=== PATIENT | male | born 1975 | race Two or more races ===

== ENCOUNTER 2024-09-29 09:32 | Emergency (ER) | payer MEDICAID, SELFPAY ==
[2024-09-29 09:37] VITALS: BP 146/89; PULSE 54; RESP 20; TEMP 36.6; O2SAT 98; BMI 29.2
--- NOTE | 2024-09-29 09:46 | EKG_ITS ---
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
--- NOTE | 2024-09-29 09:46 | XR_ITS ---
Examination: CT brain head without contrast. 2-D sagittal coronal reconstructions Date and time of exam:September 29, 2024 1027 hours INDICATIONS: Onset left-sided headaches one week, dizziness CTDI: vol (mGy):53.2 DLP: (mGycm):1076 Technique: Multiple CT axial sections of the brain have been obtained, 5 mm slice thickness. Contrast has not been administered. 2-D sagittal, coronal reconstructions have been obtained Low dose protocols were performed. One or more of the following dose reduction techniques were used; automated exposure control, adjustment of the mA and/or KV according to patient size, use of iterative reconstruction technique. Findings: Abnormal study, extensive low-density in the right temporal lobe right parietal lobe with severe mass effect, shift of the frontal horns to the left at least 10 mm Subtle hyperdensity in the horizontal right sylvian fissure and interhemispheric anterior fissure consistent with subarachnoid hemorrhage Fourth ventricle is midline The ventricles are not enlarged Cranial vault is intact IMPRESSION: Large masslike area with edema in the right temporal right parietal lobe with severe mass effect, shift of frontal horns to the left at least 10 mm Suspicious for subarachnoid hemorrhage in the right basal cisterns and anterior interhemispheric fissure Differential would include brain tumor as well as a large acute infarct Recommend brain MRI MRA follow-up pre and postcontrast
--- NOTE | 2024-09-29 09:46 | XR_ITS ---
Examination: PA lateral chest 2 views TECHNIQUE: Upright PA lateral chest 2 views Exam date and time: September 29, 2024 1012 hours Comparison August 16, 2023 INDICATIONS: Chest pain today. FINDINGS: Normal heart size Lungs are clear. The osseous structures are intact IMPRESSION: No active disease
--- NOTE | 2024-09-29 09:47 | PD.EDRME ---
Rapid Medical Screening Exam RME Arrival date/time: 09/29/24 09:32 49-year-old male presents emerged department complains of headache and chest pain today Chief Complaint: Headache Time Seen by Provider: 09/29/24 09:34 Vital signs: Vital Signs Temperature 97.9 F 09/29/24 09:37 Pulse Rate 54 L 09/29/24 09:37 Respiratory Rate 20 09/29/24 09:37 Blood Pressure 146/89 H 09/29/24 09:37 Pulse Oximetry (%) 98 09/29/24 09:37 Oxygen Delivery Method Room Air 09/29/24 09:37
[2024-09-29 10:13] LABS: Basophils % (Auto) 1 % (0-2.5); Eosinophils # (Auto) 0.1 Thou/mm3 (0.0-0.5); Eosinophils % (Auto) 1 % (0-10); Hematocrit 49.7 % (41.0-53.0); Hemoglobin 16.5 g/dL (13.5-16.0); Immature Granulocytes % (Auto) 1 % (0-0); Immature Granulocytes Auto 0.04 Thou/mm3 (0.00-0.00); Lymphocytes # (Auto) 2.1 Thou/mm3 (1.0-4.8); Lymphocytes % (Auto) 28 % (10-50); Mean Corpuscular HGB Conc 33.2 g/dl (31.0-37.0); Mean Corpuscular Hemoglobin 28.4 pg (25.0-35.0); Mean Corpuscular Volume 86 fL (80-100); Monocytes # (Auto) 0.4 Thou/mm3 (0.0-0.8); Monocytes % (Auto) 5 % (0-12); Neutrophils # (Auto) 4.9 Thou/mm3 (1.8-7.7); Neutrophils % (Auto) 65 % (37-80); Nucleated Red Blood Cell % 0 /100 WBC (0); Platelet Count 314 Thou/mm3 (140-440); RDW Standard Deviation 38.5 fL (35.1-43.9); White Blood Count 7.6 Thou/mm3 (3.8-10.6)
[2024-09-29 10:27] LABS: Partial Thromboplastin Time 23.1 Seconds (22.0-36.0); Prothrombin Time 11.3 Seconds (9.0-12.2)
[2024-09-29 10:30] LABS: B-Type Natriuretic Peptide 41 pg/mL (0-100)
[2024-09-29 10:31] LABS: Alanine Aminotransferase 66 U/L (10-49); Albumin, Serum 4.9 gm/dL (3.5-5.0); Albumin/Globulin Ratio 1.7 (1.2-2.2); Alkaline Phosphatase 111 U/L (46-116); Anion Gap 6 (7-16); Aspartate Amino Transferase 31 U/L (0-34); BUN/Creatinine Ratio 12 Ratio (12-20); Bilirubin,Total 0.7 mg/dL (0.3-1.2); Blood Urea Nitrogen 12 mg/dL (9-23); Calcium 9.4 mg/dL (8.3-10.6); Calcium (Corrected) 9.4 mg/dL (8.5-10.1); Carbon Dioxide 27.8 mMol/L (20.0-31.0); Chloride 106 mMol/L (98-107); Estimated Creatinine Clearance 104.4 mL/min (>60); Globulin 2.9 gm/dL (2.3-3.5); Glucose 110 mg/dL (74-106); Magnesium 2.7 mg/dL (1.6-2.6); Osmolality,Calculated 280 (275-295); Potassium 4.1 mMol/L (3.4-5.1); Sodium 140 mMol/L (136-145); Total Protein 7.8 gm/dL (5.7-8.2); Troponin I < 0.002 ng/mL (0.0-0.045); eGFR > 60 See Note
[2024-09-29 10:39] LABS: Collection Type, Urine Clean Catch
[2024-09-29 10:49] LABS: Bacteria,Urine Rare; Bilirubin,Urine Negative (Negative); Blood,Urine Negative (Negative); Clarity,Urine Clear (Clear/Hazy); Color,Urine Yellow (Lt Yel-Yel); Glucose, Urine Negative (Negative); Hyaline Casts,Urine < 1 /hpf (0-1); Ketones,Urine Negative (Negative); Leukocyte Esterase,Urine Negative (Negative); Nitrite,Urine Negative (Negative); Protein,Urine Trace (Neg - Trace); RBC,Urine 3 /hpf (0-3); Specific Gravity,Urine 1.025 (1.001-1.035); Squamous Epithelial Cell,Urine 2 /hpf (0-5); Urobilinogen,Urine Negative mg/dL (0.0-1.0); WBC,Urine 1 /hpf (0-5)
[2024-09-29 10:52] LABS: Amphetamine/Methamp Scrn,U Negative (Negative); Barbiturate Screen,Urine Negative (Negative); Benzodiazepines Screen,Urine Negative (Negative); Benzoylecgonine Screen, Ur Negative (Negative); Fentanyl Screen,Urine Negative (Negative); Opiate Screen,Urine Negative (Negative); THC Screen,Urine Negative (Negative)
[2024-09-29 11:04] VITALS: BP 147/77; PULSE 61; RESP 18; TEMP 36.7; O2SAT 97
--- NOTE | 2024-09-29 11:23 | EDNOTE_ITS ---
ED Headache RME/HPI General Chief Complaint: Headache Stated Complaint: headache /dizzy/ thinks he has bells palsy Time Seen by Provider: 09/29/24 09:34 Arrival date/time: 09/29/24 09:32 RME / HPI RME / HPI Narrative: 49-year-old male patient with no significant past medical history, been having worsening headache for the last 2 weeks. Patient told me that from time to time he is getting headache for 1 to 2 years, seen by PCP and was given medication with no relief. Patient was also seen here last year CT scan of the head was done and it was negative. 2 weeks ago patient developed sudden onset of worsening headache, severity moderate. Also complained of worsening dizziness. Yesterday patient told me that he developed numbness and right facial paralysis, that lasted for 5 minutes. On my initial evaluation, patient only complaints is headache described as dull ache, severity 9 out of 10 and dizziness. Denies any nausea or vomiting denies any blurry vision denies any slurring speech denies any upper or lower extremity weakness. Patient is ambulatory. Related Data Allergies Allergy/AdvReac Type Severity Reaction Status Date / Time No Known Allergies Allergy Verified 09/29/24 09:33 Review of Systems Review of Systems Narrative Review of Systems: Review of system reviewed and within normal limits except mentioned in HPI ED Exam Narrative Physical exam: VITAL SIGNS: Reviewed. GENERAL APPEARANCE: Alert and interactive, follows commands, no acute distress, HEAD AND FACE: Non-traumatic. ENT: PERRL, pink conjunctivitis, eyelid no trauma, Mucous membrane moist. NECK: Supple, nontender, no nuchal rigidity. CHEST: No tenderness, no crepitus, no paradoxical movement, no retractions. LUNGS: Clear, well ventilated, symmetric, no rales, no wheezing, no ronchi, no stridor, good breath sounds bilaterally. HEART: Regular rate, regular rhythm, no murmur, no gallops. ABDOMEN: Soft, positive bowel sounds, nondistended, no guarding, nontender, no rebound, no masses, RECTAL: Deferred. GENITAL: Deferred. NEUROLOGICAL: Gross motor function intact sensory function intact, Appropriate for age. MUSCULOSKELETAL: low back nontender, full range of motion. EXTREMITIES: Nontender, full range of motion. SKIN: Color pink, dry, no rash, no lacerations, no abrasions, no contusions. LYMPHATICS: Deferred. Course Quality Measures none Orders Category Date Time Status EKG (ED ONLY) *Do not use* NOW Care 09/29/24 09:46 Completed Referral - [place] Roofer Helper Stat Cons 09/29/24 11:[address] head/brain wo con Stat Exams 09/29/24 09:46 Completed EKG (ED Only) Stat Exams 09/29/24 09:46 Draft XR chest 2V Stat Exams 09/29/24 09:46 Completed B-Type Natriuretic Peptide Stat Lab 09/29/24 10:00 Completed CBC Stat Lab 09/29/24 10:00 Completed Comprehensive Metabolic Panel Stat Lab 09/29/24 10:00 Completed Drug Screen,Urine Stat Lab 09/29/24 10:12 Completed Magnesium Stat Lab 09/29/24 10:00 Completed Partial Thromboplastin Time Stat Lab 09/29/24 10:00 Completed Prothrombin Time with INR Stat Lab 09/29/24 10:00 Completed Troponin I Stat Lab 09/29/24 10:00 Completed Urinalysis Stat Lab 09/29/24 10:12 Completed Acetaminophen Tab [Tylenol ES Tab] Med 09/29/24 11:33 Discontinued 1,000 mg PO X1 ONE levETIRAcetam INJ [Keppra Inj] Med 09/29/24 11:33 Discontinued 1,000 mg IVP X1 ONE Vital Signs Vital signs: Vital Signs Temperature 97.9 F 09/29/24 09:37 Pulse Rate 54 L 09/29/24 09:37 Respiratory Rate 20 09/29/24 09:37 Blood Pressure 146/89 H 09/29/24 09:37 Pulse Oximetry (%) 98 09/29/24 09:37 Oxygen Delivery Method Room Air 09/29/24 09:37 Headache MDM Narrative MDM Narrative:: 49-year-old male patient with no significant past medical history, been having worsening headache for the last 2 weeks. Patient told me that from time to time he is getting headache for 1 to 2 years, seen by PCP and was given medication with no relief. Patient was also seen here last year CT scan of the head was done and it was negative. 2 weeks ago patient developed sudden onset of worsening headache, severity moderate. Also complained of worsening dizziness. Yesterday patient told me that he developed numbness and right facial paralysis, that lasted for 5 minutes. On my initial evaluation, patient only complaints is headache described as dull ache, severity 9 out of 10 and dizziness. Denies any nausea or vomiting denies any blurry vision denies any slurring speech denies any upper or lower extremity weakness. Patient is ambulatory. Laboratory workup all came back unremarkable. CT scan of the head showed Large masslike area with edema in the right temporal right parietal lobe with severe mass effect, shift of frontal horns to the left at least 10 mm Suspicious for subarachnoid hemorrhage in the right basal cisterns and anterior interhemispheric fissure Differential would include brain tumor as well as a large acute infarct Recommend brain MRI MRA follow-up pre and postcontrast Patient was given Keppra IV. And Tylenol I spoke with neurosurgeon from [facility], Dr. Allen, told me that patient needs to be transferred to higher level care 1310 I spoke with transfer center from [facility], and told me that she will run the case with the neurosurgeon Patient was accepted at [facility], accepting neurosurgeon Dr. Story Patient data External records reviewed:: None Clinical information provided by:: family Social determinants that could affect healthcare access:: none Patient has the following chronic illnesses:: None How is presenting disease/condition affected by chronic disease/condition?: no chronic disease Evaluation data The following diagnostics were reviewed and interpreted by me:: lab results, radiology exam(s) and EKG tracing(s) Lab and/or radiology exams considered but not ordered:: None Interpretation Summary: EKG shows sinus rhythm, ventricular rate 61 bpm, no ST segment elevation depression noted. Laboratory workup all came back unremarkable. CT scan of the head showed Large masslike area with edema in the right temporal right parietal lobe with severe mass effect, shift of frontal horns to the left at least 10 mm Suspicious for subarachnoid hemorrhage in the right basal cisterns and anterior interhemispheric fissure Differential would include brain tumor as well as a large acute infarct Recommend brain MRI MRA follow-up pre and postcontrast Medications / Prescriptions Medications or Prescriptions considered but not ordered:: None Medication administrations:: Medication Administration History Discontinued Medications Acetaminophen (Acetaminophen 500 Mg Tablet) 1,000 mg PO X1 ONE Stop: 09/29/24 11:34 Last Admin: 09/29/24 11:56 Dose: 1,000 mg Documented By: LORENZO Levetiracetam (Levetiracetam Inj 100 Mg/Ml Vial 5ml) 1,000 mg IVP X1 ONE Stop: 09/29/24 11:34 Last Admin: 09/29/24 11:57 Dose: 1,000 mg Documented By: LORENZO [place] and Tylenol Consultations Consultation(s) initiated? (list below): No Diagnosis Differential diagnosis headache: migraine, tension headache and other (Brain mass) Most likely diagnosis given after review of the tests above:: Brain mass Admission Indicated Admission indicated?: indicated Explain why admission is indicated or not indicated:: Transferred to [facility] Admission Request Was there a request for admission?: No Disposition Plan Disposition Plan: Transfer Discharge Plan Plan Patient Disposition: Xf Acute Care [facility] Pt Being Transferred to: [facility] Prescriptions/Referrals Referrals: Remedios Mckenna FNP-C [Primary Care Provider] - In 1 week Problem List Clinical Impression: Brain mass Patient/Caregiver Discharge Instructions Print Language: Irish Stand Alone Forms: Mikala Award Info., Patient Portal Info Letter
[2024-09-29] MEDS: ACETAMINOPHEN 500 MG TABLET 1000 MG PO (11:56)
--- NOTE | 2024-09-29 11:56 | PC.CM ---
Addendum entered by Sharon Castro RN 09/29/24 15:08: [place] called and slate picker time set for 1540. Packet at ED nurses station and I gave update to [place] Charge nurse. CD in packet and it is ready for transfer. Addendum entered by Sharon Castro RN 09/29/24 13:39: Patient accepted by [facility]. I spoke to Sara transfer nurse and she states patient will go ED to ED. Dr. Story has accepted. Number to call and give report is [phone]. I will complete paperwork and set up transportation. Addendum entered by Sharon Castro RN 09/29/24 13:00: I received a call from Sara at [facility]. She states she did not received the images I pushed over. I pushed over the images again. [facility] called the ED and stated they are not able to accept patient stating patient needs a higher level of care than they can offer. Patient declined for transfer. Addendum entered by Sharon Castro RN 09/29/24 12:23: 1205 I initiated a transfer with [facility]. I spoke to Celina and I let her know we are looking for neurology. i faxed over paperwork. I started packet and made a CD for transfer. Original Note: 1145 I faxed over information to [facility] and I pushed over images. 1134 I received a referral to transfer patient for neurology for intracranial tumor with midline shift and edema.
[2024-09-29] MEDS: levETIRAcetam INJ 100 MG/ML VIAL 5ML 1000 MG IVP (11:57)
[2024-09-29 13:56] VITALS: BP 158/94; PULSE 51; RESP 20; TEMP 37; O2SAT 99
--- NOTE | 2024-09-29 14:31 | PC.CC ---
ASWMary Kate was consulted to provide patient's with [facility] information to where the patient is being transferred to. ASW met with patient and his Yelena who was at bedside. ASW introduced self, role, and reason for visit and provided patient and his information to [facility] where he is being transferred to.
--- NOTE | 2024-09-29 15:44 | PC.NURSE ---
report given to Wil in red zone at [facility] red zone all questions answers
== END 2024-09-29 15:15 | disposition short-term general hospital (02) ==
PROVIDERS: Nurse Practitioner Primary Care; Emergency Provider Emergency Medicine; PCP Nurse Practitioner Family
DX: G93.89 Other specified disorders of brain (principal); R07.9 Chest pain, unspecified; R94.31 Abnormal electrocardiogram [ECG] [EKG]
CPT/HCPCS: 36415; 70450; 71046; 80053; 80307; 81001; 83735; 83880; 84484; 85025; 85610; 85730; 93005; 96374; 99285; J1953; A9270

== ENCOUNTER 2024-10-16 07:24 | Emergency (ER) | payer MEDICAID, SELFPAY ==
[2024-10-16 07:44] VITALS: BP 126/84; PULSE 75; RESP 18; TEMP 36.6; O2SAT 98; BMI 28.3
--- NOTE | 2024-10-16 07:44 | XR_ITS ---
Examination: Abdomen sonogram, Limited Date and time of exam: October 16, 2024 0816 hours INDICATIONS: Right upper abdominal pain radiating to the back beginning 5 days ago Technique: Real-time pizano scale transabdominal sonographic images of the upper abdomen obtained. Findings: Negative for gallstones Common bile duct 0.3 cm Pancreatic head 2.8 cm Liver 14.1 cm fatty infiltration Normal hepatopedal portal venous flow Patent IVC IMPRESSION: Normal gallbladder Fatty liver
--- NOTE | 2024-10-16 07:45 | PD.EDRME ---
Rapid Medical Screening Exam RME Arrival date/time: 10/16/24 07:24 49-year-old male presents the emergency department complaints of right upper quadrant abdominal pain patient recently had brain surgery with tumor removal patient is awaiting pathology. Patient reports that when he was in [facility] he had an MRI of his abdomen which he reports was abnormal patient reports that he is scheduled to have repeat MRI in [place] in October Chief Complaint: Abdominal Pain Time Seen by Provider: 10/16/24 07:26
[2024-10-16 08:04] LABS: Collection Type, Urine Clean Catch
[2024-10-16 08:28] LABS: Alanine Aminotransferase 48 U/L (10-49); Albumin, Serum 5.1 gm/dL (3.5-5.0); Albumin/Globulin Ratio 1.9 (1.2-2.2); Alkaline Phosphatase 112 U/L (46-116); Anion Gap 7 (7-16); Aspartate Amino Transferase 19 U/L (0-34); BUN/Creatinine Ratio 13 Ratio (12-20); Bilirubin,Total 0.5 mg/dL (0.3-1.2); Blood Urea Nitrogen 13 mg/dL (9-23); Carbon Dioxide 27.3 mMol/L (20.0-31.0); Chloride 104 mMol/L (98-107); Estimated Creatinine Clearance 99.8 mL/min (>60); Globulin 2.7 gm/dL (2.3-3.5); Glucose 112 mg/dL (74-106); Lipase 56 U/L (12-53); Osmolality,Calculated 276 (275-295); Sodium 138 mMol/L (136-145); Total Protein 7.8 gm/dL (5.7-8.2); eGFR > 60 See Note
--- NOTE | 2024-10-16 08:30 | PC.NURSE ---
speech therapist technician at bedside, obtaining abd ultrasound.
[2024-10-16 08:50] LABS: Basophils # (Auto) 0.1 Thou/mm3 (0.0-0.2); Basophils % (Auto) 1 % (0-2.5); Eosinophils # (Auto) 0.1 Thou/mm3 (0.0-0.5); Eosinophils % (Auto) 2 % (0-10); Hematocrit 47.4 % (41.0-53.0); Hemoglobin 15.6 g/dL (13.5-16.0); Immature Granulocytes % (Auto) 1 % (0-0); Immature Granulocytes Auto 0.04 Thou/mm3 (0.00-0.00); Lymphocytes # (Auto) 2.5 Thou/mm3 (1.0-4.8); Lymphocytes % (Auto) 31 % (10-50); Mean Corpuscular HGB Conc 32.9 g/dl (31.0-37.0); Mean Corpuscular Hemoglobin 28.6 pg (25.0-35.0); Mean Corpuscular Volume 87 fL (80-100); Monocytes # (Auto) 0.4 Thou/mm3 (0.0-0.8); Monocytes % (Auto) 5 % (0-12); Neutrophils # (Auto) 5.1 Thou/mm3 (1.8-7.7); Neutrophils % (Auto) 61 % (37-80); Nucleated Red Blood Cell % 0 /100 WBC (0); Platelet Count 381 Thou/mm3 (140-440); RDW Standard Deviation 40.2 fL (35.1-43.9); Red Blood Count 5.46 Miln/mm3 (4.50-5.90); White Blood Count 8.2 Thou/mm3 (3.8-10.6)
--- NOTE | 2024-10-16 08:51 | EDNOTE_ITS ---
ED Abdominal Pain RME/HPI General Chief Complaint: Abdominal Pain Stated complaint: RIGHT ABD PAIN FOR 4 MONTHS, JUST AT [facility] [place] Time seen by provider: 10/16/24 07:26 Arrival date/time: 10/16/24 07:24 RME / HPI RME / HPI narrative: 10/16/24 07:24 49-year-old male presents the emergency department complaints of right upper quadrant abdominal pain patient recently had brain surgery with tumor removal patient is awaiting pathology. Patient reports that when he was in [facility] he had an MRI of his abdomen which he reports was abnormal patient reports that he is scheduled to have repeat MRI in [place] in October DR. NIX MAIN ED EVALUATION 49 year old male presents to the ED for evaluation of abdominal pain beginning 4 days ago. Described as aching in sensation that is located most to the right upper quadrant area, without radiation, rating 7/10. Patient reports he had experienced similar pain 4 months ago and during that time lasted 2 days. States he did not seek medical attention and the pain resolved on its own. Denies fevers, chills, chest pain, cough, shortness of breath, nausea, vomiting, diarrhea, constipation, or urinary symptoms. 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 Story. Mentioned that during the admission patient had a MRI performed which showed a spot on the liver and is scheduled to have a follow up MRI 11/20/2023 at [facility]. Related Data Allergies Allergy/AdvReac Type Severity Reaction Status Date / Time No Known Allergies Allergy Verified 10/16/24 07:28 Review of Systems Review of Systems Narrative Review of Systems: GEN: No fever, no chills, no weight loss EYES: No discharge, no visual changes, no pain HEENT: No ear pain, no congestion, no sore throat PULM: No shortness of breath, no cough, no congestion CV: No chest pain, no dyspnea on exertion, no palpitations GI: No nausea, no vomiting, no diarrhea, +pain, no constipation : No frequency, no urgency and no dysuria MUSC/SKEL No joint pain, no back pain SKIN: No rash NEURO: No weakness, no headache Past Medical History Past Medical History CARDIAC: Positive Hypertension; Negative Cardiac Disorders or Congestive Heart Failure RESPIRATORY: Negative Chronic Obstructive Pulmonary Disease (COPD) GENITOURINARY: Negative Genitourinary Disorders or Renal Disease ENDOCRINE: Negative Diabetes Mellitus Type 1 or Diabetes Mellitus Type 2 Social History SMOKING STATUS: Never smoker ED Exam Narrative Physical exam: GENERAL APPEARANCE: Well hydrated, well nourished, in no acute distress. VITALS: All vitals were reviewed and the pulse ox is 98% on room air which is normal according to my interpretation. HEENT: Normocephalic, atramatic, EOMI, EACs are patent. There is no bulge or retraction. Throat without erythema or exudate. Moist oromucosa. No jaundice NECK: Supple, no JVD or bruits. CARDIOVASCULAR: Heart regular without S3-S4 or murmur. No rubs or gallops. LUNGS/CHEST: Clear to auscultation bilaterally. No rales, rhonchi, or wheezing. Normal inspection. ABDOMEN: Soft, nontender, with normal bowel sounds. No pulsatile masses. No rebound, rigidity, or guarding. No incarcerated hernia. Normal inspection and palpation. EXTREMITIES: Normal inspection and palpation. No edema, clubbing, or cyanosis. Intact CSM SKIN: Warm and dry without rashes. Normal inspection. MUSCULOSKELETAL: Normal inspection. No gross deformity, full ROM all extremities NEURO: Alert and oriented x3. Cranial nerves II through XII grossly intact. There are no other motor or sensory deficits noted. PSYCHIATRIC: Normal mood and affect. No psychosis Course Quality Measures none Orders Category Date Time Status Miscellaneous Nursing Order NOW Care 10/16/24 08:18 Active US gall bladder Stat Exams 10/16/24 07:44 Completed CBC Stat Lab 10/16/24 07:52 Completed Comprehensive Metabolic Panel Stat Lab 10/16/24 07:52 Completed Lipase Stat Lab 10/16/24 07:52 Completed UA, C/S IF [Urinalysis, C/S if Indicated] Stat Lab 10/16/24 07:55 Completed Vital Signs Vital signs: Vital Signs Temperature 97.9 F 10/16/24 07:44 Pulse Rate 75 10/16/24 07:44 Respiratory Rate 18 10/16/24 07:44 Blood Pressure 126/84 10/16/24 07:44 Pulse Oximetry (%) 98 10/16/24 07:44 Oxygen Delivery Method Room Air 10/16/24 07:44 Abdominal Pain MDM MDM Narrative MDM Narrative:: I, Ann Christin, am scribing for and in the presence of Dr. Nix. Patient said that he has been having this pain for months ago also. He was recently DC from [facility] after the brain tumor surgery. That was done on 10/01/2024. And he has follow-up with [facility]. CBC is negative. CMP negative. Lipase is 56. Ultrasound of the right upper quadrant was done. Result from the radiologist is negative. See below. UA is negative. Ultrasound of the right upper quadrant reviewed by and interpreted by me as follow: Gallbladder is intact however elongated, no gallstone. No common bile duct dilatation. No gallbladder wall thickening. Hepatal renal aspect is intact and normal. Patient data External records reviewed:: [facility] previous records (I reviewed ED visit on 09/29/2024 where patient was transferred to [facility] ) Clinical information provided by:: patient Social determinants that could affect healthcare access:: none Patient has the following chronic illnesses:: Hypertension, s/p brain tumor resection 4by Dr. Story at [facility] How is presenting disease/condition affected by chronic disease/condition?: uneffected by Evaluation data The following diagnostics were reviewed and interpreted by me:: lab results and radiology exam(s) Lab and/or radiology exams considered but not ordered:: None Interpretation Summary: Ordering Physician: Bob GROSSMAN)Alistair NP Date of Service: 10/16/24 Procedure(s): US gall bladder Accession Number(s): [id number] cc: Bob GROSSMAN)Alistair NP; ARBEN MEYER PA-C; Silvestre Angulo MD~ Examination: Abdomen sonogram, Limited Date and time of exam: October 16, 2024 0816 hours INDICATIONS: Right upper abdominal pain radiating to the back beginning 5 days ago Technique: Real-time pizano scale transabdominal sonographic images of the upper abdomen obtained. Findings: Negative for gallstones Common bile duct 0.3 cm Pancreatic head 2.8 cm Liver 14.1 cm fatty infiltration Normal hepatopedal portal venous flow Patent IVC IMPRESSION: Normal gallbladder Fatty liver Dictated By: Silvestre Angulo MD Signed By: <Electronically signed by Silvestre Angulo MD in OV> 10/16/24 0946 Medications / Prescriptions Medications or Prescriptions considered but not ordered:: None Medication administrations:: None Consultations Consultation(s) initiated? (list below): No Diagnosis Differential diagnosis abdominal pain: abdominal pain, calculus of kidney and other (Cholelithiasis) Most likely diagnosis given after review of the tests above:: Abdominal pain Admission Indicated Admission indicated?: not indicated Admission Request Was there a request for admission?: No Disposition Plan Disposition Plan: Discharge Discharge Attestation Discharge Attestation: The patient and all family members were given an opportunity to ask questions and understood the discharge instructions. Discharge instructions specifically effects, indications for sooner follow up or return to the emergency department, and the expected course of current diagnosis. Patient condition: Stable Discharge Plan Plan Patient Disposition: HOME (Self Care) Disposition Comment: Stable for DC Prescriptions/Referrals Referrals: Arben Meyer PA-C [Primary Care Provider] - In 1 week Problem List Clinical Impression: Abdominal pain Patient/Caregiver Discharge Instructions Education Materials: Abdominal Pain Additional Instructions: Follow-up with your medical doctor for recheck and further care in 3 days. Return to the ER if condition worsens or if new symptoms develop. Especially fever. You should follow-up closely with your doctor at [facility] Print Language: Kazakh Stand Alone Forms: Mikala Award Info., Patient Portal Info Letter
[2024-10-16 09:00] LABS: Bilirubin,Urine Negative (Negative); Blood,Urine Negative (Negative); Clarity,Urine Clear (Clear/Hazy); Color,Urine Lt-Yellow (Lt Yel-Yel); Culture Indicated,Urine Not Indicated; Glucose, Urine Negative (Negative); Ketones,Urine Negative (Negative); Leukocyte Esterase,Urine Negative (Negative); Nitrite,Urine Negative (Negative); Protein,Urine Negative (Neg - Trace); RBC,Urine 2 /hpf (0-3); Squamous Epithelial Cell,Urine < 1 /hpf (0-5); Urobilinogen,Urine Negative mg/dL (0.0-1.0); WBC,Urine < 1 /hpf (0-5)
[2024-10-16 10:17] VITALS: BP 119/70; PULSE 66; RESP 19; TEMP 36.7; O2SAT 96
== END 2024-10-16 10:28 | disposition home or self-care (01) ==
PROVIDERS: Nurse Practitioner Primary Care; Emergency Provider Emergency Medicine; PCP Physician Assistant Medical
DX: R10.11 Right upper quadrant pain (principal)
CPT/HCPCS: 36415; 76705; 80053; 81001; 83690; 85025; 99284

== ENCOUNTER 2024-11-23 09:24 | Outpatient (RCR) | payer MEDICAID, SELFPAY | END 2024-11-24 23:59 | disposition home or self-care (01) | LOC: SCTC 09:24 | PROVIDERS: PCP Radiology Radiation Oncology; Referring Provider Radiology Radiation Oncology; Visit Provider Radiology Therapeutic Radiology | DX: C71.1 Malignant neoplasm of frontal lobe (principal) | CPT/HCPCS: 77014; 77290; 77334; 77470; 99213; 99424; 99425; G0463 ==

== ENCOUNTER 2024-11-23 10:40 | Emergency (ER) | payer MEDICAID, SELFPAY ==
[2024-11-23 11:09] VITALS: BP 144/86; PULSE 83; RESP 18; TEMP 37.2; O2SAT 97; BMI 32.4
--- NOTE | 2024-11-23 11:14 | EDNOTE_ITS ---
ED Male Genitalurinary RME/HPI General Chief complaint: Urogenital-Male Stated complaint: SPICY PAIN IN PRIVATE AREA AND RIGHT BUTT X 5D Time Seen by Provider: 11/23/24 11:07 Source: patient Arrival date/time: 11/23/24 10:40 49-year-old male with no known medical history presents to the emergency room with a chief complaint of a burning sensation in his right buttocks and near his anus Mode of arrival: ambulatory Limitations: no limitations Related Data Allergies Allergy/AdvReac Type Severity Reaction Status Date / Time No Known Allergies Allergy Verified 11/23/24 10:42 Review of Systems Review of Systems Systems Reviewed: All systems reviewed, normal except as documented Constitutional Constitutional: Reports system reviewed and no additional complaints, except as documented, Denies fatigue, Denies fever(s), Denies headache(s) and Denies weakness Eyes Eyes: Reports system reviewed and no additional complaints, except as documented, Denies blurry vision and Denies change in vision ENT Ears, Nose, Mouth, and Throat: Reports system reviewed and no additional complaints, except as documented, Denies otalgia, Denies headache(s), Denies nasal congestion, Denies throat swelling and Denies vertigo Cardiovascular Cardiovascular: Reports system reviewed and no additional complaints, except as documented, Denies chest pain, Denies dyspnea and Denies dyspnea on exertion Respiratory Respiratory: Reports system reviewed and no additional complaints, except as documented, Denies chest congestion, Denies cough, Denies dyspnea, Denies dyspnea on exertion and Denies wheezing Gastrointestinal Gastrointestinal: Reports system reviewed and no additional complaints, except as documented, Denies abdominal pain, Denies cramping, Denies nausea and Denies vomiting Genitourinary Genitourinary: Reports system reviewed and no additional complaints, except as documented, Denies dysuria and Denies hematuria Musculoskeletal Musculoskeletal: Reports system reviewed and no additional complaints, except as documented and Denies back pain Integumentary/Breasts Skin/Breast: Reports system reviewed and no additional complaints, except as documented, Denies erythema, Denies furuncle, Denies pruritus, Denies skin pain, Denies sores and Denies wounds Neurologic Neurologic: Reports system reviewed and no additional complaints, except as documented, Denies confusion, Denies headache(s), Denies lack of coordination, Denies vertigo and Denies weakness Psychiatric Psychiatric: Reports system reviewed and no additional complaints, except as documented, Denies anxiety, Denies confusion, Denies depression, Denies paranoia, Denies suicidal ideation and Denies tactile hallucinations Endocrine Endocrine: Reports system reviewed and no additional complaints, except as documented and Denies fatigue Hematologic/Lymphatic Hematologic/Lymphatic: Reports system reviewed and no additional complaints, except as documented and Denies lymphadenopathy Allergic/Immunologic Allergic/Immunologic: Reports system reviewed and no additional complaints, except as documented, Denies throat swelling, Denies urticaria and Denies wheezing Past Medical History Past Medical History CARDIAC: Positive Hypertension; Negative Cardiac Disorders or Congestive Heart Failure RESPIRATORY: Negative Chronic Obstructive Pulmonary Disease (COPD) GENITOURINARY: Negative Genitourinary Disorders or Renal Disease ENDOCRINE: Negative Diabetes Mellitus Type 1 or Diabetes Mellitus Type 2 Social History SMOKING STATUS: Never smoker ED Exam General Limitations: Present no limitations General appearance: Present alert and in no apparent distress Head Head exam: Present atraumatic Eye Eye exam: Present normal appearance, PERRL and EOMI ENT ENT exam: Present normal exam, normal oropharynx and mucous membranes moist Neck Neck exam: Present normal inspection, full ROM and trachea midline Chest Chest inspection: Present normal inspection and symmetric chest wall rise Respiratory Respiratory exam: Present normal lung sounds bilaterally Cardiovascular Cardiovascular exam: Present regular rate, normal rhythm and normal heart sounds Abdominal Exam Abdominal exam: Present soft and normal bowel sounds exam: Present normal testicular lie; Absent testicular tenderness, urethral discharge, scrotal swelling or circumcised Expanded Exam exam: Absent penile swelling or balanitis Extremities Exam Extremities exam: Present normal inspection and full ROM Back Exam Back exam: Present normal inspection and full ROM Neurological Exam Neurological exam: Present alert, oriented X3 and CN II-XII intact Psychiatric Psychiatric exam: Present normal affect and normal mood Skin Skin exam: Present warm, dry, intact and normal color Course Quality Measures none Vital Signs Vital signs: Vital Signs Temperature 98.9 F 11/23/24 11:09 Pulse Rate 83 11/23/24 11:09 Respiratory Rate 18 11/23/24 11:09 Blood Pressure 144/86 H 11/23/24 11:09 Pulse Oximetry (%) 97 11/23/24 11:09 Oxygen Delivery Method Room Air 11/23/24 11:09 O2 saturation 97% within normal limits Urogenital - Male MDM Narrative MDM Narrative:: 49-year-old male with no known medical history presents to the emergency room with a chief complaint of a burning sensation in his right buttocks and near his anus. The patient is hemodynamically stable and nontoxic-appearing There is no erythema, wound, edema, or any signs of infection to the area. The patient is afebrile. The patient does not complain of pain and tenderness to the area and states there is a burning sensation that has been intermittently bothering him for the last 5 days. I palpated and there is no fluid buildup or pus. Patient denies any dysuria hematuria. There is no blood in the stool or any discharge. There is no folliculitis, ingrown hair. Patient was discharged and educated to follow-up with primary care provider and return to the emergency room for any evidence of worsening signs or symptoms Patient data External records reviewed:: [facility] previous records Clinical information provided by:: patient Social determinants that could affect healthcare access:: none Patient has the following chronic illnesses:: No chronic illness How is presenting disease/condition affected by chronic disease/condition?: no chronic disease Evaluation data The following diagnostics were reviewed and interpreted by me:: lab results and radiology exam(s) Lab and/or radiology exams considered but not ordered:: Labs and radiology exams considered and ordered Interpretation Summary: N/A Medications / Prescriptions Medications or Prescriptions considered but not ordered:: No medication given Medication administrations:: No medication given Consultations Consultation(s) initiated? (list below): No Diagnosis Urogenital Male Differential Diagnosis: urinary tract infection, urethritis, epididymitis and other (Urogenital complaint) Most likely diagnosis given after review of the tests above:: Urogenital complaint Admission Indicated Admission indicated?: not indicated Admission Request Was there a request for admission?: No Disposition Plan Disposition Plan: Discharge Discharge Attestation Discharge Attestation: The patient and all family members were given an opportunity to ask questions and understood the discharge instructions. Discharge instructions specifically effects, indications for sooner follow up or return to the emergency department, and the expected course of current diagnosis. Patient condition: Stable Discharge Plan Plan Patient Disposition: HOME (Self Care) Disposition Comment: Stable Problem List Clinical Impression: Genitourinary complaints Patient/Caregiver Discharge Instructions Education Materials: ED Symptoms With Uncertain Cause Additional Instructions: Dm un seguimiento con tejada proveedor de atenci?n primaria en las pr?ximas 24 a 40 horas. Si hay evidencia de signos o s?ntomas que empeoran, regrese a la prema de emergencias de inmediato. Print Language: Malay Stand Alone Forms: Mikala Award Info., Patient Portal Info Letter PA/ESTIMATOR PAP[employer]ARD BOXES Supervising Physician PA/ESTIMATOR P[employer]ARD [employer]OXES Supervising Physician: Dr. Flores
== END 2024-11-23 11:44 | disposition home or self-care (01) ==
LOC: SERX 11:52
PROVIDERS: Emergency Provider Emergency Medicine; PCP Family Medicine
DX: R20.8 Other disturbances of skin sensation (principal)
CPT/HCPCS: 99281

== ENCOUNTER → 2024-12-04 | Outpatient (CLI) | payer MEDICAID, SELFPAY ==
[2024-12-04 09:32] LABS: Basophils # (Auto) 0.1 Thou/mm3 (0.0-0.2); Basophils % (Auto) 1 % (0-2.5); Eosinophils # (Auto) 0.1 Thou/mm3 (0.0-0.5); Eosinophils % (Auto) 1 % (0-10); Hematocrit 48.6 % (41.0-53.0); Hemoglobin 16.1 g/dL (13.5-16.0); Immature Granulocytes % (Auto) 0 % (0-0); Immature Granulocytes Auto 0.03 Thou/mm3 (0.00-0.00); Lymphocytes # (Auto) 1.5 Thou/mm3 (1.0-4.8); Lymphocytes % (Auto) 21 % (10-50); Mean Corpuscular HGB Conc 33.1 g/dl (31.0-37.0); Mean Corpuscular Hemoglobin 28.6 pg (25.0-35.0); Mean Corpuscular Volume 87 fL (80-100); Monocytes # (Auto) 0.3 Thou/mm3 (0.0-0.8); Monocytes % (Auto) 4 % (0-12); Neutrophils # (Auto) 5.5 Thou/mm3 (1.8-7.7); Neutrophils % (Auto) 74 % (37-80); Nucleated Red Blood Cell % 0 /100 WBC (0); Platelet Count 321 Thou/mm3 (140-440); RDW Standard Deviation 43.1 fL (35.1-43.9); Red Blood Count 5.62 Miln/mm3 (4.50-5.90); White Blood Count 7.4 Thou/mm3 (3.8-10.6)
[2024-12-04 09:50] LABS: Alanine Aminotransferase 15 U/L (10-49); Albumin, Serum 4.8 gm/dL (3.5-5.0); Albumin/Globulin Ratio 1.7 (1.2-2.2); Alkaline Phosphatase 75 U/L (46-116); Anion Gap 6 (7-16); Aspartate Amino Transferase 14 U/L (0-34); BUN/Creatinine Ratio 11 Ratio (12-20); Bilirubin,Total 0.6 mg/dL (0.3-1.2); Blood Urea Nitrogen 11 mg/dL (9-23); Calcium 10.3 mg/dL (8.3-10.6); Calcium (Corrected) 10.3 mg/dL (8.5-10.1); Chloride 108 mMol/L (98-107); Globulin 2.8 gm/dL (2.3-3.5); Glucose 109 mg/dL (74-106); Osmolality,Calculated 283 (275-295); Potassium 4.3 mMol/L (3.4-5.1); Sodium 142 mMol/L (136-145); Total Protein 7.6 gm/dL (5.7-8.2); eGFR > 60 See Note
== END | disposition home or self-care (01) ==
PROVIDERS: PCP Family Medicine; Referring Provider Internal Medicine Hematology & Oncology; Visit Provider Internal Medicine Hematology & Oncology
DX: C71.1 Malignant neoplasm of frontal lobe (principal)
CPT/HCPCS: 36415; 80053; 85025

== ENCOUNTER → 2024-12-13 | Outpatient (CLI) | payer MEDICAID, SELFPAY ==
[2024-12-13 13:55] LABS: Basophils # (Auto) 0.1 Thou/mm3 (0.0-0.2); Basophils % (Auto) 1 % (0-2.5); Eosinophils # (Auto) 0.1 Thou/mm3 (0.0-0.5); Eosinophils % (Auto) 2 % (0-10); Hematocrit 48.2 % (41.0-53.0); Hemoglobin 16.2 g/dL (13.5-16.0); Immature Granulocytes % (Auto) 0 % (0-0); Immature Granulocytes Auto 0.03 Thou/mm3 (0.00-0.00); Lymphocytes # (Auto) 2.2 Thou/mm3 (1.0-4.8); Lymphocytes % (Auto) 27 % (10-50); Mean Corpuscular HGB Conc 33.6 g/dl (31.0-37.0); Mean Corpuscular Volume 86 fL (80-100); Monocytes # (Auto) 0.7 Thou/mm3 (0.0-0.8); Monocytes % (Auto) 8 % (0-12); Neutrophils # (Auto) 4.9 Thou/mm3 (1.8-7.7); Neutrophils % (Auto) 62 % (37-80); Nucleated Red Blood Cell % 0 /100 WBC (0); Platelet Count 308 Thou/mm3 (140-440); Red Blood Count 5.58 Miln/mm3 (4.50-5.90)
[2024-12-13 14:39] LABS: Alanine Aminotransferase 30 U/L (10-49); Albumin, Serum 4.6 gm/dL (3.5-5.0); Albumin/Globulin Ratio 1.7 (1.2-2.2); Alkaline Phosphatase 81 U/L (46-116); Anion Gap 9 (7-16); Aspartate Amino Transferase 19 U/L (0-34); BUN/Creatinine Ratio 14 Ratio (12-20); Bilirubin,Total 0.4 mg/dL (0.3-1.2); Blood Urea Nitrogen 13 mg/dL (9-23); Calcium 10.1 mg/dL (8.3-10.6); Calcium (Corrected) 10.1 mg/dL (8.5-10.1); Carbon Dioxide 27.6 mMol/L (20.0-31.0); Chloride 102 mMol/L (98-107); Creatinine (Component) 0.9 mg/dL (0.6-1.3); Globulin 2.7 gm/dL (2.3-3.5); Glucose 80 mg/dL (74-106); Osmolality,Calculated 276 (275-295); Potassium 4.4 mMol/L (3.4-5.1); Sodium 139 mMol/L (136-145); Total Protein 7.3 gm/dL (5.7-8.2); eGFR > 60 See Note
== END | disposition home or self-care (01) ==
LOC: COPL 12:24 → SCTO 12:25
PROVIDERS: Referring Provider Internal Medicine Hematology & Oncology; Visit Provider Internal Medicine Hematology & Oncology
DX: C71.1 Malignant neoplasm of frontal lobe (principal)
CPT/HCPCS: 36415; 80053; 85025

== ENCOUNTER 2024-12-22 09:49 | Outpatient (RCR) | payer MEDICAID, SELFPAY ==
--- NOTE | 2024-12-03 21:53 | CTCCONSULT_ITS ---
Patient: ELLIOTT CARSON : 1975 MR#: [id number] Page 3 of 4 CONSULTATION NOTE DATE OF CONSULTATION: 11/30/2024 NAME: ELLIOTT CARSON ACCOUNT: [id number] : 1975 AGE: 49 REFERRING PHYSICIAN: Moise Boudreaux MD PRIMARY PHYSICIAN: Moise Boudreaux MD REASON FOR VISIT: Glioma blastoma multiform ONCOLOGY HISTORY: DIAGNOSIS: Malignant neoplasm of frontal lobe (brain) [ICD10] C71.1 DATE OF DIAGNOSIS: 11/22/2024 STAGE/TNM: 1975 Study of the molecular features that [facility] indicates that this is most consistent with glioblastoma IDH wild-type WHO grade 4. Please see [facility] interpretation section of page 2 of pathology dated 10/01/2024 which is the second document in the mosaic for patient. 11/22/2024 There are postsurgical changes in the right middle cranial fossa from temporal craniotomy. Adjacent to the surgical cavity and more medial, there is fullness of the sulci with high TZ-FLAIR signal and subtle restricted diffusion involving the insular region, medial temporal lobe, and posteroinferior frontal lobe which is unchanged in appearance. In addition, there is subtle signal change involving the right periatrial white matter and hippocampal gyrus with probable extension into the right splenium of the corpus callosum which is also unchanged; however, slightly more conspicuous to the previous examination. There is no associated enhancement. Findings are likely related to non enhancing tumor. 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 Tobacco?Pack?per?Day:?0 Tobacco?Use:?DENIES ETOH?Use:?DENIES Drug?Note:?DENIES Social History Note:?LIVES WITH , 2 CHILDREN AGES 24 AND 13 MEDICATIONS: 1. gabapentin - 100 mg Three times a day 2. gabapentin - 100 mg 1 Capsule three times a day 3. hydrocodone-acetaminophen - 5-325 mg 1 tab three times a day 4. temozolomide - 140 mg 1 Capsule Daily 5. temozolomide - 5 mg 2 Capsule Daily Medications Last Reconciled by Dana Juan LVN on 11/01/2024 ALLERGIES: No Known Allergies REVIEW OF SYSTEMS: A complete 14-point review of systems was performed and is negative except as noted in interval history. PHYSICAL EXAMINATION: VITAL SIGNS: Temperature?99, B/P?153/95, Height?65?inches, Oxygen?Saturation?97% Weight?200?lbs (Change?since?11/15/24:?1?lbs) PAIN: 0 - No pain ECOG Performance Status: 2 - Symptomatic; ambulatory; capable of self-care; >50% of waking hrs. not in bed GENERAL APPEARANCE: Appears well, in no apparent distress, appropriately interactive. HEENT: Normocephalic, no temporal wasting, normal conjunctiva, no scleral icterus, normal hearing, lips without lesions, neck normal range of motion. CARDIOVASCULAR: Not assessed. PULMONARY: Normal respiratory effort, no respiratory distress or use of accessory muscles, speaking in full sentences, no tachypnea. EXTREMITIES: No pedal edema or cyanosis. SKIN: Normal skin appearance. NEUROLOGIC: Alert and oriented x4. PSHYCHIATRIC: Appropriate affect, mood normal, behavior normal, intact thought and speech. LABORATORY DATA: I have personally reviewed and interpreted each of Mr. Carson?s relevant lab tests, abnormal findings are below: Date ASSESSMENT/PLAN: GBM WHO grade 4 S/p resection Will start on concurrent chemoradiation with Temodar followed by maintenance Temodar Chemotherapy orders placed Discussed with Dr. Flores that he can start radiation while waiting for approval of Temodar Patient is high risk and has been already delayed Okay to proceed with radiation and added Temodar weekly once drug is available CBC CMP [facility] MRI brain after the treatment is complete RETURN TO CLINIC: 3 to 4 weeks BILLING AND COMPLIANCE: I reviewed external records from providers outside my specialty as summarized above. I spent a total of 50 minutes on this patient?s care on the day of their visit excluding time spent related to any billed procedures. This time includes time spent with the patient as well as time spent documenting in the medical record, reviewing patients records and tests, obtaining history, placing orders, communicating with other healthcare professionals, counseling the patient, family or caregiver, and/or care coordination for the diagnoses above. Electronically Signed by: Cal Patel MD T: 9:50 PM CC: PCP: Moise Boudreaux Referring: Moise Boudreaux This document was completed utilizing speech recognition software. Grammatical errors, random word insertions, pronoun errors, and incomplete sentences are an occasional consequence of this system due to software limitations, ambient noise, and hardware issues. Any formal questions or concerns about the content, text or information contained within the body of this dictation should be directly addressed to the provider for clarification.
--- NOTE | 2024-12-14 08:09 | CTCFLWUP_ITS ---
Patient: ELLIOTT CORBIN : 1975 Page 3 of 4 FOLLOW UP NOTE DATE OF SERVICE: 12/13/2024 NAME: ELLIOTT CORBIN ACCOUNT: [id number] : 1975 AGE: 49 INTERVAL HISTORY: Patient is received Temodar. He has been getting radiation Patient so far tolerating radiation well. ONCOLOGY HISTORY: DIAGNOSIS: Malignant neoplasm of frontal lobe (brain) [ICD10] C71.1 DATE OF DIAGNOSIS: 11/22/2024 STAGE/TNM: 1975 Study of the molecular features that [facility] indicates that this is most consistent with glioblastoma IDH wild-type WHO grade 4. Please see [facility] interpretation section of page 2 of pathology dated 10/01/2024 which is the second document in the mosaic for patient. 11/22/2024 There are postsurgical changes in the right middle cranial fossa from temporal craniotomy. Adjacent to the surgical cavity and more medial, there is fullness of the sulci with high TZ-FLAIR signal and subtle restricted diffusion involving the insular region, medial temporal lobe, and posteroinferior frontal lobe which is unchanged in appearance. In addition, there is subtle signal change involving the right periatrial white matter and hippocampal gyrus with probable extension into the right splenium of the corpus callosum which is also unchanged; however, slightly more conspicuous to the previous examination. There is no associated enhancement. Findings are likely related to non enhancing tumor. 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 Tobacco?Pack?per?Day:?0 Tobacco?Use:?DENIES ETOH?Use:?DENIES Drug?Note:?DENIES Social History Note:?LIVES WITH , 2 CHILDREN AGES 22 AND 13 MEDICATIONS: 1. hydrocodone-acetaminophen - 5-325 mg 1 tab three times a day 2. memantine - 5 mg 1 tab once daily increasing to twice a day second week. 3. temozolomide - 100 mg 3 Capsule Daily 4. temozolomide - 140 mg 1 Capsule Daily 5. temozolomide - 5 mg 2 Capsule Daily Medications Last Reconciled by Remedios Mattson MA on 12/13/2024 ALLERGIES: No Known Allergies REVIEW OF SYSTEMS: A complete 14-point review of systems was performed and is negative except as noted in interval history. PHYSICAL EXAMINATION: VITAL SIGNS: Temperature?98.4, B/P?147/90, Oxygen?Saturation?98% Weight?194.6?lbs (Change?since?12/12/24:?0.6?lbs) PAIN: 0 - No pain GENERAL APPEARANCE: Appears well, in no apparent distress, appropriately interactive. HEENT: Normocephalic, no temporal wasting, normal conjunctiva, no scleral icterus, normal hearing, lips without lesions, neck normal range of motion. CARDIOVASCULAR: Not assessed. PULMONARY: Normal respiratory effort, no respiratory distress or use of accessory muscles, speaking in full sentences, no tachypnea. EXTREMITIES: No pedal edema or cyanosis. SKIN: Normal skin appearance. NEUROLOGIC: Alert and oriented x4. PSHYCHIATRIC: Appropriate affect, mood normal, behavior normal, intact thought and speech. LABORATORY DATA: I have personally reviewed and interpreted each of the patient?s relevant lab tests, abnormal findings are below: Date 12/04/24 ??GLUCOSE,RANDOM?(mg/dL) 109?H ??BLOOD?UREA?NITROGEN?(mg/dL) 11 ??CREATININE?(mg/dL) 1.00 ??SODIUM?(mmol/L) 142 ??POTASSIUM?(mmol/L) 4.3 ??CHLORIDE?(mmol/L) 108?H ??CrCl?(CandG)?(ml/min) 94.53 ??AST/SGOT?(Unit/L) 14 ??ALT/SGPT?(Unit/L) 15 ??ALKALINE?PHOSPHATASE?(Unit/L) 75 ??BILIRUBIN,?TOTAL?(mg/dL) 0.6 ??PROTEIN?TOTAL?(gm/dl) 7.6 ??ALBUMIN,?SERUM?(gm/dl) 4.8 ??GLOBULIN?(gm/dl) 2.8 ??ALBUMIN/GLOBULIN?RATIO 1.7 ??CALCIUM,?SERUM?(mg/dL) 10.3 ??CALCIUM?SERUM?(CORRECTED)?(mg/dL) 10.3?H ASSESSMENT/PLAN: 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 I spent a total of 50 minutes on this patient?s care on the day of their visit excluding time spent related to any billed procedures. This time includes time spent with the patient as well as time spent documenting in the medical record, reviewing patients records and tests, obtaining history, placing orders, communicating with other healthcare professionals, counseling the patient, family or caregiver, and/or care coordination for the diagnoses above. Electronically Signed by: Cal Patel MD T: 8:07 AM CC: PCP: Moise Boudreaux Referring: Moise Boudreaux This document was completed utilizing speech recognition software. Grammatical errors, random word insertions, pronoun errors, and incomplete sentences are an occasional consequence of this system due to software limitations, ambient noise, and hardware issues. Any formal questions or concerns about the content, text or information contained within the body of this dictation should be directly addressed to the provider for clarification.
[2024-12-18 11:57] LABS: Basophils # (Auto) 0.1 Thou/mm3 (0.0-0.2); Basophils % (Auto) 1 % (0-2.5); Eosinophils # (Auto) 0.1 Thou/mm3 (0.0-0.5); Eosinophils % (Auto) 2 % (0-10); Hematocrit 47.6 % (41.0-53.0); Hemoglobin 16.4 g/dL (13.5-16.0); Immature Granulocytes % (Auto) 0 % (0-0); Immature Granulocytes Auto 0.03 Thou/mm3 (0.00-0.00); Lymphocytes # (Auto) 1.6 Thou/mm3 (1.0-4.8); Lymphocytes % (Auto) 24 % (10-50); Mean Corpuscular HGB Conc 34.5 g/dl (31.0-37.0); Mean Corpuscular Volume 84 fL (80-100); Monocytes # (Auto) 0.4 Thou/mm3 (0.0-0.8); Monocytes % (Auto) 6 % (0-12); Neutrophils # (Auto) 4.6 Thou/mm3 (1.8-7.7); Neutrophils % (Auto) 68 % (37-80); Nucleated Red Blood Cell % 0 /100 WBC (0); Platelet Count 295 Thou/mm3 (140-440); RDW Standard Deviation 40.2 fL (35.1-43.9); Red Blood Count 5.66 Miln/mm3 (4.50-5.90); White Blood Count 6.9 Thou/mm3 (3.8-10.6)
[2024-12-18 12:16] LABS: Alanine Aminotransferase 64 U/L (10-49); Albumin, Serum 4.5 gm/dL (3.5-5.0); Albumin/Globulin Ratio 1.6 (1.2-2.2); Alkaline Phosphatase 82 U/L (46-116); Anion Gap 10 (7-16); Aspartate Amino Transferase 31 U/L (0-34); BUN/Creatinine Ratio 12 Ratio (12-20); Bilirubin,Total 0.5 mg/dL (0.3-1.2); Blood Urea Nitrogen 11 mg/dL (9-23); Calcium 9.7 mg/dL (8.3-10.6); Calcium (Corrected) 9.7 mg/dL (8.5-10.1); Carbon Dioxide 24.3 mMol/L (20.0-31.0); Chloride 106 mMol/L (98-107); Creatinine (Component) 0.9 mg/dL (0.6-1.3); Globulin 2.9 gm/dL (2.3-3.5); Glucose 111 mg/dL (74-106); Osmolality,Calculated 279 (275-295); Sodium 140 mMol/L (136-145); Total Protein 7.4 gm/dL (5.7-8.2); eGFR > 60 See Note
== END 2024-12-22 23:59 | disposition home or self-care (01) ==
LOC: SCTC 09:49
PROVIDERS: PCP Family Medicine; Referring Provider Family Medicine; Visit Provider Internal Medicine Hematology & Oncology
DX: Z51.0 Encounter for antineoplastic radiation therapy (principal); C71.1 Malignant neoplasm of frontal lobe; C71.2 Malignant neoplasm of temporal lobe
CPT/HCPCS: 36415; 77300; 77301; 77336; 77338; 77385; 80053; 85025; 96360; 99211; 99213; J7030; G0463

== ENCOUNTER 2025-01-17 09:53 | Outpatient (RCR) | payer MEDICAID, SELFPAY ==
--- NOTE | 2024-12-25 11:03 | CTCTRTNOTE_ITS ---
[facility] [address] [place], [place] [address] Weekly Management Date: 12/25/2024 ?? Name: ELLIOTT CORBIN : 1975 A. Patient is currently at 2600 cGy. B. Patient is now taking Temodar along with radiation. After initial day of nausea doing better. Has about 3 and half weeks left of radiation. C. Resume radiation therapy. Ran out of memantine which was I will renew today. Told patient to take 10 mg twice daily now. Electronically signed by: Jayro Flores M.D. 12/25/2024 11:01 AM
[2024-12-26 11:16] LABS: Basophils # (Auto) 0.1 Thou/mm3 (0.0-0.2); Basophils % (Auto) 1 % (0-2.5); Eosinophils # (Auto) 0.2 Thou/mm3 (0.0-0.5); Eosinophils % (Auto) 3 % (0-10); Hematocrit 47.7 % (41.0-53.0); Hemoglobin 16.1 g/dL (13.5-16.0); Immature Granulocytes % (Auto) 1 % (0-0); Immature Granulocytes Auto 0.03 Thou/mm3 (0.00-0.00); Lymphocytes % (Auto) 18 % (10-50); Mean Corpuscular HGB Conc 33.8 g/dl (31.0-37.0); Mean Corpuscular Hemoglobin 29.3 pg (25.0-35.0); Mean Corpuscular Volume 87 fL (80-100); Monocytes # (Auto) 0.4 Thou/mm3 (0.0-0.8); Monocytes % (Auto) 8 % (0-12); Neutrophils % (Auto) 70 % (37-80); Nucleated Red Blood Cell % 0 /100 WBC (0); Platelet Count 293 Thou/mm3 (140-440); RDW Standard Deviation 41.3 fL (35.1-43.9); Red Blood Count 5.49 Miln/mm3 (4.50-5.90); White Blood Count 5.7 Thou/mm3 (3.8-10.6)
[2024-12-26 11:45] LABS: Alanine Aminotransferase 23 U/L (10-49); Albumin, Serum 4.8 gm/dL (3.5-5.0); Alkaline Phosphatase 80 U/L (46-116); Anion Gap 7 (7-16); Aspartate Amino Transferase 17 U/L (0-34); Calcium 9.7 mg/dL (8.3-10.6); Calcium (Corrected) 9.7 mg/dL (8.5-10.1); Carbon Dioxide 27.4 mMol/L (20.0-31.0); Chloride 108 mMol/L (98-107); Glucose 100 mg/dL (74-106); Potassium 4.2 mMol/L (3.4-5.1); Sodium 142 mMol/L (136-145); eGFR > 60 See Note
[2024-12-26 12:12] LABS: BUN/Creatinine Ratio 9 Ratio (12-20); Bilirubin,Total 0.5 mg/dL (0.3-1.2); Blood Urea Nitrogen 9 mg/dL (9-23); Globulin 2.4 gm/dL (2.3-3.5); Osmolality,Calculated 281 (275-295); Total Protein 7.2 gm/dL (5.7-8.2)
[2025-01-02 11:00] LABS: Basophils # (Auto) 0.1 Thou/mm3 (0.0-0.2); Basophils % (Auto) 1 % (0-2.5); Eosinophils # (Auto) 0.1 Thou/mm3 (0.0-0.5); Eosinophils % (Auto) 2 % (0-10); Hematocrit 49.1 % (41.0-53.0); Hemoglobin 16.5 g/dL (13.5-16.0); Immature Granulocytes % (Auto) 1 % (0-0); Immature Granulocytes Auto 0.03 Thou/mm3 (0.00-0.00); Lymphocytes # (Auto) 1.1 Thou/mm3 (1.0-4.8); Lymphocytes % (Auto) 18 % (10-50); Mean Corpuscular HGB Conc 33.6 g/dl (31.0-37.0); Mean Corpuscular Hemoglobin 29.2 pg (25.0-35.0); Mean Corpuscular Volume 87 fL (80-100); Monocytes # (Auto) 0.4 Thou/mm3 (0.0-0.8); Monocytes % (Auto) 7 % (0-12); Neutrophils # (Auto) 4.2 Thou/mm3 (1.8-7.7); Neutrophils % (Auto) 71 % (37-80); Nucleated Red Blood Cell % 0 /100 WBC (0); Platelet Count 289 Thou/mm3 (140-440); Red Blood Count 5.66 Miln/mm3 (4.50-5.90); White Blood Count 5.9 Thou/mm3 (3.8-10.6)
[2025-01-02 11:20] LABS: Alanine Aminotransferase 36 U/L (10-49); Albumin, Serum 4.7 gm/dL (3.5-5.0); Albumin/Globulin Ratio 1.7 (1.2-2.2); Alkaline Phosphatase 86 U/L (46-116); Anion Gap 7 (7-16); Aspartate Amino Transferase 22 U/L (0-34); BUN/Creatinine Ratio 9 Ratio (12-20); Bilirubin,Total 0.5 mg/dL (0.3-1.2); Blood Urea Nitrogen 9 mg/dL (9-23); Calcium 9.9 mg/dL (8.3-10.6); Calcium (Corrected) 9.9 mg/dL (8.5-10.1); Carbon Dioxide 26.4 mMol/L (20.0-31.0); Chloride 106 mMol/L (98-107); Globulin 2.8 gm/dL (2.3-3.5); Glucose 99 mg/dL (74-106); Osmolality,Calculated 276 (275-295); Potassium 4.4 mMol/L (3.4-5.1); Sodium 139 mMol/L (136-145); Total Protein 7.5 gm/dL (5.7-8.2); eGFR > 60 See Note
[2025-01-09 14:18] LABS: Basophils % (Auto) 1 % (0-2.5); Eosinophils # (Auto) 0.1 Thou/mm3 (0.0-0.5); Eosinophils % (Auto) 2 % (0-10); Hematocrit 48.5 % (41.0-53.0); Hemoglobin 16.5 g/dL (13.5-16.0); Immature Granulocytes % (Auto) 0 % (0-0); Immature Granulocytes Auto 0.02 Thou/mm3 (0.00-0.00); Lymphocytes # (Auto) 0.8 Thou/mm3 (1.0-4.8); Lymphocytes % (Auto) 14 % (10-50); Mean Corpuscular Hemoglobin 29.4 pg (25.0-35.0); Mean Corpuscular Volume 86 fL (80-100); Monocytes # (Auto) 0.4 Thou/mm3 (0.0-0.8); Monocytes % (Auto) 7 % (0-12); Neutrophils # (Auto) 4.4 Thou/mm3 (1.8-7.7); Neutrophils % (Auto) 76 % (37-80); Nucleated Red Blood Cell % 0 /100 WBC (0); Platelet Count 293 Thou/mm3 (140-440); RDW Standard Deviation 41.3 fL (35.1-43.9); Red Blood Count 5.62 Miln/mm3 (4.50-5.90); White Blood Count 5.8 Thou/mm3 (3.8-10.6)
[2025-01-09 14:37] LABS: Alanine Aminotransferase 53 U/L (10-49); Albumin, Serum 4.4 gm/dL (3.5-5.0); Albumin/Globulin Ratio 1.6 (1.2-2.2); Alkaline Phosphatase 93 U/L (46-116); Anion Gap 13 (7-16); Aspartate Amino Transferase 24 U/L (0-34); BUN/Creatinine Ratio 9 Ratio (12-20); Bilirubin,Total 0.6 mg/dL (0.3-1.2); Blood Urea Nitrogen 9 mg/dL (9-23); Calcium 9.5 mg/dL (8.3-10.6); Calcium (Corrected) 9.5 mg/dL (8.5-10.1); Carbon Dioxide 23.2 mMol/L (20.0-31.0); Chloride 104 mMol/L (98-107); Globulin 2.8 gm/dL (2.3-3.5); Glucose 96 mg/dL (74-106); Osmolality,Calculated 278 (275-295); Potassium 3.5 mMol/L (3.4-5.1); Sodium 140 mMol/L (136-145); Total Protein 7.2 gm/dL (5.7-8.2); eGFR > 60 See Note
[2025-01-16 11:13] LABS: Basophils % (Auto) 1 % (0-2.5); Eosinophils # (Auto) 0.1 Thou/mm3 (0.0-0.5); Eosinophils % (Auto) 3 % (0-10); Hematocrit 47.3 % (41.0-53.0); Hemoglobin 16.1 g/dL (13.5-16.0); Immature Granulocytes % (Auto) 0 % (0-0); Immature Granulocytes Auto 0.02 Thou/mm3 (0.00-0.00); Lymphocytes # (Auto) 0.5 Thou/mm3 (1.0-4.8); Lymphocytes % (Auto) 10 % (10-50); Mean Corpuscular Volume 85 fL (80-100); Monocytes # (Auto) 0.5 Thou/mm3 (0.0-0.8); Monocytes % (Auto) 10 % (0-12); Neutrophils # (Auto) 4.1 Thou/mm3 (1.8-7.7); Neutrophils % (Auto) 76 % (37-80); Nucleated Red Blood Cell % 0 /100 WBC (0); Platelet Count 282 Thou/mm3 (140-440); RDW Standard Deviation 40.1 fL (35.1-43.9); Red Blood Count 5.56 Miln/mm3 (4.50-5.90); White Blood Count 5.4 Thou/mm3 (3.8-10.6)
[2025-01-16 11:40] LABS: Alanine Aminotransferase 53 U/L (10-49); Albumin, Serum 4.6 gm/dL (3.5-5.0); Albumin/Globulin Ratio 1.6 (1.2-2.2); Alkaline Phosphatase 94 U/L (46-116); Anion Gap 10 (7-16); Aspartate Amino Transferase 26 U/L (0-34); BUN/Creatinine Ratio 13 Ratio (12-20); Bilirubin,Total 0.4 mg/dL (0.3-1.2); Blood Urea Nitrogen 12 mg/dL (9-23); Calcium 10.1 mg/dL (8.3-10.6); Calcium (Corrected) 10.1 mg/dL (8.5-10.1); Carbon Dioxide 25.4 mMol/L (20.0-31.0); Chloride 104 mMol/L (98-107); Creatinine (Component) 0.9 mg/dL (0.6-1.3); Globulin 2.8 gm/dL (2.3-3.5); Glucose 89 mg/dL (74-106); Osmolality,Calculated 276 (275-295); Potassium 4.1 mMol/L (3.4-5.1); Sodium 139 mMol/L (136-145); Total Protein 7.4 gm/dL (5.7-8.2); eGFR > 60 See Note
== END 2025-01-22 23:59 | disposition home or self-care (01) ==
LOC: SCTC 09:53
PROVIDERS: Referring Provider Internal Medicine Hematology & Oncology; Visit Provider Internal Medicine Hematology & Oncology
DX: Z51.0 Encounter for antineoplastic radiation therapy (principal); C71.1 Malignant neoplasm of frontal lobe; L59.8 Other specified disorders of the skin and subcutaneous tissue related to radiation; Y84.2 Radiological procedure and radiotherapy as the cause of abnormal reaction of the patient, or of later complication, without mention of misadventure at the time of the procedure; R11.0 Nausea; G47.00 Insomnia, unspecified
CPT/HCPCS: 36415; 77336; 77385; 80053; 85025; 96360; A4216; J7030

== ENCOUNTER → 2025-01-29 | Outpatient (CLI) | payer MEDICAID, SELFPAY ==
[2025-01-29 11:59] LABS: Basophils % (Auto) 1 % (0-2.5); Eosinophils # (Auto) 0.1 Thou/mm3 (0.0-0.5); Eosinophils % (Auto) 3 % (0-10); Hematocrit 46.7 % (41.0-53.0); Immature Granulocytes % (Auto) 1 % (0-0); Immature Granulocytes Auto 0.04 Thou/mm3 (0.00-0.00); Lymphocytes # (Auto) 0.5 Thou/mm3 (1.0-4.8); Lymphocytes % (Auto) 10 % (10-50); Mean Corpuscular HGB Conc 34.3 g/dl (31.0-37.0); Mean Corpuscular Hemoglobin 29.7 pg (25.0-35.0); Mean Corpuscular Volume 87 fL (80-100); Monocytes # (Auto) 0.4 Thou/mm3 (0.0-0.8); Monocytes % (Auto) 8 % (0-12); Neutrophils # (Auto) 3.9 Thou/mm3 (1.8-7.7); Neutrophils % (Auto) 77 % (37-80); Nucleated Red Blood Cell % 0 /100 WBC (0); Platelet Count 232 Thou/mm3 (140-440); RDW Standard Deviation 40.4 fL (35.1-43.9); Red Blood Count 5.38 Miln/mm3 (4.50-5.90)
[2025-01-29 12:09] LABS: Alanine Aminotransferase 78 U/L (10-49); Albumin, Serum 4.5 gm/dL (3.5-5.0); Albumin/Globulin Ratio 1.5 (1.2-2.2); Alkaline Phosphatase 90 U/L (46-116); Anion Gap 10 (7-16); Aspartate Amino Transferase 37 U/L (0-34); BUN/Creatinine Ratio 11 Ratio (12-20); Bilirubin,Total 0.6 mg/dL (0.3-1.2); Blood Urea Nitrogen 11 mg/dL (9-23); Calcium 9.9 mg/dL (8.3-10.6); Calcium (Corrected) 9.9 mg/dL (8.5-10.1); Carbon Dioxide 25.7 mMol/L (20.0-31.0); Chloride 103 mMol/L (98-107); Glucose 121 mg/dL (74-106); Osmolality,Calculated 277 (275-295); Potassium 3.9 mMol/L (3.4-5.1); Sodium 139 mMol/L (136-145); Total Protein 7.5 gm/dL (5.7-8.2); eGFR > 60 See Note
== END | disposition home or self-care (01) ==
LOC: SCTO 10:49
PROVIDERS: PCP Internal Medicine; Referring Provider Internal Medicine Hematology & Oncology; Visit Provider Internal Medicine Hematology & Oncology
DX: C71.1 Malignant neoplasm of frontal lobe (principal)
CPT/HCPCS: 36415; 80053; 85025

== ENCOUNTER 2025-02-06 10:06 | Emergency (ER) | payer MEDICAID, SELFPAY ==
--- NOTE | 2025-02-06 12:10 | PC.NURSE ---
no answer in lobby when called to see provider
--- NOTE | 2025-02-06 12:50 | PC.NURSE ---
no answer in lobby when called to see provider
--- NOTE | 2025-02-06 13:09 | PC.NURSE ---
no answer in lobby when called to see provider
== END 2025-02-06 19:01 | disposition left against medical advice (07) ==
PROVIDERS: Emergency Provider Emergency Medicine
DX: Z53.21 Procedure and treatment not carried out due to patient leaving prior to being seen by health care provider (principal)

== ENCOUNTER 2025-02-20 10:38 | Outpatient (RCR) | payer MEDICAID, SELFPAY ==
--- NOTE | 2025-01-23 13:38 | CTCFLWUP_ITS ---
Patient: ELLIOTT CORBIN : 1975 Page 3 of 4 FOLLOW UP NOTE DATE OF SERVICE: 01/23/2025 NAME: ELLIOTT CORBIN ACCOUNT: [id number] : 1975 AGE: 49 INTERVAL HISTORY: Patient completed last radiation on 01/18/2025 with the Temodar. Patient is started chemotherapy little after starting radiation maybe a week or 6 6 to 7 days. Patient is still taking his Temodar. Patient still have nausea and headaches. MRI scheduled for 02/11/2025. ONCOLOGY HISTORY: DIAGNOSIS: Malignant neoplasm of frontal lobe (brain) [ICD10] C71.1 DATE OF DIAGNOSIS: 11/22/2024 STAGE/TNM: 1975 Study of the molecular features that [facility] indicates that this is most consistent with glioblastoma IDH wild-type WHO grade 4. Please see [facility] interpretation section of page 2 of pathology dated 10/01/2024 which is the second document in the mosaic for patient. 11/22/2024 There are postsurgical changes in the right middle cranial fossa from temporal craniotomy. Adjacent to the surgical cavity and more medial, there is fullness of the sulci with high TZ-FLAIR signal and subtle restricted diffusion involving the insular region, medial temporal lobe, and posteroinferior frontal lobe which is unchanged in appearance. In addition, there is subtle signal change involving the right periatrial white matter and hippocampal gyrus with probable extension into the right splenium of the corpus callosum which is also unchanged; however, slightly more conspicuous to the previous examination. There is no associated enhancement. Findings are likely related to non enhancing tumor. TREATMENT HISTORY: Care?Plan Start?Date Cycle Day Intent HISTORY OF PRESENT ILLNESS: 49-year-old male with a new diagnosis of GBM. Patient was diagnosed with GBM. Underwent craniotomy to remove large right frontotemporal mass. Patient was seen at by [facility] and started on concurrent chemoradiation. There was a delay to received Temodar. Patient have completed chemotherapy with radiation. 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 Tobacco?Pack?per?Day:?0 Tobacco?Use:?DENIES ETOH?Use:?DENIES Drug?Note:?DENIES Social History Note:?LIVES WITH , 2 CHILDREN AGES 22 AND 13 MEDICATIONS: 1. Ambien - 10 mg 1 tab every night before sleep 2. hydrocodone-acetaminophen - 5-325 mg 1 tab three times a day 3. memantine - 5 mg 2 tab twice a day 4. ondansetron - 16 mg 1 tab 1 tab every 8 hrs 5. ondansetron HCl - 8 mg 1 tab every 8 hours as needed for nausea 6. temozolomide - 100 mg 3 Capsule Daily 7. temozolomide - 140 mg 1 Capsule Daily 8. temozolomide - 5 mg 2 Capsule Daily Medications Last Reconciled by Remedios Mattson MA on 01/23/2025 ALLERGIES: No Known Allergies REVIEW OF SYSTEMS: A complete 14-point review of systems was performed and is negative except as noted in interval history. PHYSICAL EXAMINATION: VITAL SIGNS: Temperature?99.4, B/P?136/87, Oxygen?Saturation?100% Weight?191.6?lbs (Change?since?01/16/25:?1.2?lbs) PAIN: 2 - Mild pain ECOG Performance Status: 1 - Symptomatic; ambulatory; restricted in strenuous activity GENERAL APPEARANCE: Appears well, in no apparent distress, appropriately interactive. HEENT: Normocephalic, no temporal wasting, normal conjunctiva, no scleral icterus, normal hearing, lips without lesions, neck normal range of motion. CARDIOVASCULAR: Not assessed. PULMONARY: Normal respiratory effort, no respiratory distress or use of accessory muscles, speaking in full sentences, no tachypnea. EXTREMITIES: No pedal edema or cyanosis. SKIN: Normal skin appearance. NEUROLOGIC: Alert and oriented x4. PSHYCHIATRIC: Appropriate affect, mood normal, behavior normal, intact thought and speech. LABORATORY DATA: I have personally reviewed and interpreted each of the patient?s relevant lab tests, abnormal findings are below: Date 01/09/25 01/16/25 ??WHITE?BLOOD?COUNT?(Thou/mm3) 5.8 5.4 ??RED?BLOOD?COUNT?(Miln/mm3) 5.62 5.56 ??HEMOGLOBIN?(gm/dl) 16.5?H 16.1?H ??HEMATOCRIT?(%) 48.5 47.3 ??PLATELET?COUNT?(Thou/mm3) 293 282 ??NEUTROPHILS?%,?AUTO?(%) 76 76 ??LYMPH?%,?AUTO?(%) 14 10 ??NEUTROPHILS,?AUTO?(Thou/mm3) 4.4 4.1 ??GLUCOSE,RANDOM?(mg/dL) 96 89 ??BLOOD?UREA?NITROGEN?(mg/dL) 9 12 ??CREATININE?(mg/dL) 1.00 0.90 ??SODIUM?(mmol/L) 140 139 ??POTASSIUM?(mmol/L) 3.5 4.1 ??CHLORIDE?(mmol/L) 104 104 ??CrCl?(CandG)?(ml/min) 92.28 102.54 ??AST/SGOT?(Unit/L) 24 26 ??ALT/SGPT?(Unit/L) 53?H 53?H ??ALKALINE?PHOSPHATASE?(Unit/L) 93 94 ??BILIRUBIN,?TOTAL?(mg/dL) 0.6 0.4 ??PROTEIN?TOTAL?(gm/dl) 7.2 7.4 ??ALBUMIN,?SERUM?(gm/dl) 4.4 4.6 ??GLOBULIN?(gm/dl) 2.8 2.8 ??ALBUMIN/GLOBULIN?RATIO 1.6 1.6 ??CALCIUM,?SERUM?(mg/dL) 9.5 10.1 ??CALCIUM?SERUM?(CORRECTED)?(mg/dL) 9.5 10.1 ASSESSMENT/PLAN: GBM WHO grade 4 S/p resection Concurrent chemoradiation with Temodar completed on 01/18/2025 Will start adjuvant treatment with the Temodar next week once patient has received his drug Follow-up on the MRI results Zofran for nausea ordered ORDERS: Order # Description [id number] Follow Up 4 Week [id number] Comprehensive Metabolic Panel - 12 + CBC with Auto Diff [id number] RETURN TO CLINIC: 4 weeks to review results BILLING AND COMPLIANCE: I reviewed external records from providers outside my specialty as summarized above. I spent a total of 50 minutes on this patient?s care on the day of their visit excluding time spent related to any billed procedures. This time includes time spent with the patient as well as time spent documenting in the medical record, reviewing patients records and tests, obtaining history, placing orders, communicating with other healthcare professionals, counseling the patient, family or caregiver, and/or care coordination for the diagnoses above. Electronically Signed by: Cal Patel MD T: 1:36 PM CC: PCP: Cla Patel Referring: Cal Patel This document was completed utilizing speech recognition software. Grammatical errors, random word insertions, pronoun errors, and incomplete sentences are an occasional consequence of this system due to software limitations, ambient noise, and hardware issues. Any formal questions or concerns about the content, text or information contained within the body of this dictation should be directly addressed to the provider for clarification.
[2025-01-24 09:20] LABS: Collection Type, Urine Voided; RBC,Urine 0 /hpf (0-3)
[2025-01-24 09:22] LABS: Basophils % (Auto) 1 % (0-2.5); Eosinophils # (Auto) 0.1 Thou/mm3 (0.0-0.5); Eosinophils % (Auto) 2 % (0-10); Hematocrit 47.3 % (41.0-53.0); Hemoglobin 16.5 g/dL (13.5-16.0); Immature Granulocytes % (Auto) 1 % (0-0); Immature Granulocytes Auto 0.03 Thou/mm3 (0.00-0.00); Lymphocytes # (Auto) 0.5 Thou/mm3 (1.0-4.8); Lymphocytes % (Auto) 9 % (10-50); Mean Corpuscular HGB Conc 34.9 g/dl (31.0-37.0); Mean Corpuscular Hemoglobin 29.5 pg (25.0-35.0); Mean Corpuscular Volume 85 fL (80-100); Monocytes # (Auto) 0.5 Thou/mm3 (0.0-0.8); Monocytes % (Auto) 8 % (0-12); Neutrophils # (Auto) 4.7 Thou/mm3 (1.8-7.7); Neutrophils % (Auto) 80 % (37-80); Nucleated Red Blood Cell % 0 /100 WBC (0); Platelet Count 260 Thou/mm3 (140-440); RDW Standard Deviation 39.8 fL (35.1-43.9); White Blood Count 5.8 Thou/mm3 (3.8-10.6)
[2025-01-24 09:29] LABS: Bacteria,Urine 1+; Bilirubin,Urine Negative (Negative); Blood,Urine Negative (Negative); Clarity,Urine Clear (Clear/Hazy); Color,Urine Colorless (Lt Yel-Yel); Glucose, Urine Negative (Negative); Ketones,Urine Negative (Negative); Leukocyte Esterase,Urine Negative (Negative); Nitrite,Urine Negative (Negative); Protein,Urine Negative (Neg - Trace); Specific Gravity,Urine 1.003 (1.001-1.035); Squamous Epithelial Cell,Urine < 1 /hpf (0-5); Urobilinogen,Urine Negative mg/dL (0.0-1.0); WBC,Urine < 1 /hpf (0-5)
[2025-01-24 09:40] LABS: Alanine Aminotransferase 37 U/L (10-49); Albumin, Serum 4.7 gm/dL (3.5-5.0); Albumin/Globulin Ratio 1.7 (1.2-2.2); Alkaline Phosphatase 89 U/L (46-116); Anion Gap 7 (7-16); Aspartate Amino Transferase 20 U/L (0-34); BUN/Creatinine Ratio 8 Ratio (12-20); Bilirubin,Total 0.6 mg/dL (0.3-1.2); Blood Urea Nitrogen 9 mg/dL (9-23); Calcium 9.6 mg/dL (8.3-10.6); Calcium (Corrected) 9.6 mg/dL (8.5-10.1); Carbon Dioxide 26.2 mMol/L (20.0-31.0); Chloride 105 mMol/L (98-107); Creatinine (Component) 1.1 mg/dL (0.6-1.3); Globulin 2.7 gm/dL (2.3-3.5); Glucose 101 mg/dL (74-106); Osmolality,Calculated 274 (275-295); Potassium 3.8 mMol/L (3.4-5.1); Sodium 138 mMol/L (136-145); Total Protein 7.4 gm/dL (5.7-8.2); eGFR > 60 See Note
--- NOTE | 2025-02-08 13:48 | CTCFLWUP_ITS ---
[facility] [address] [place], [place] [address] FOLLOW-UP NOTE Date: 02/08/2025 MR#: [id number] Name: ELLIOTT CORBIN : 1975 Dx: C71.1 Malignant neoplasm of frontal lobe (brain) Identification. Patient with GBM WHO grade 4 Following resection received postop Temodar and radiation therapy 6000 cGy completed 01/16/2025. Made an extra appointment today because of pain in the right temporal region along with problems with smell similar to when the cancer was initially diagnosed.. Has MRI scheduled for 02/19/2025 in [place]. Patient likely has some reaccumulation of fluid in the brain following treatment. I will place patient on Decadron 2 mg twice daily, may be increased if necessary for worsening of symptoms. If improvement of symptoms by next week may cut it down to 1 a day or off completely. Patient will call on Wednesday to tell us of his condition. Electronically signed by: Jayro Flores M.D. 02/08/2025 1:46 PM
[2025-02-20 11:08] LABS: Basophils % (Auto) 0 % (0-2.5); Eosinophils % (Auto) 0 % (0-10); Hematocrit 46.3 % (41.0-53.0); Hemoglobin 16.4 g/dL (13.5-16.0); Immature Granulocytes % (Auto) 2 % (0-0); Immature Granulocytes Auto 0.21 Thou/mm3 (0.00-0.00); Lymphocytes # (Auto) 0.7 Thou/mm3 (1.0-4.8); Lymphocytes % (Auto) 6 % (10-50); Mean Corpuscular HGB Conc 35.4 g/dl (31.0-37.0); Mean Corpuscular Hemoglobin 30.4 pg (25.0-35.0); Mean Corpuscular Volume 86 fL (80-100); Monocytes # (Auto) 0.8 Thou/mm3 (0.0-0.8); Monocytes % (Auto) 7 % (0-12); Neutrophils # (Auto) 10.1 Thou/mm3 (1.8-7.7); Neutrophils % (Auto) 85 % (37-80); Nucleated Red Blood Cell % 0 /100 WBC (0); Platelet Count 197 Thou/mm3 (140-440); RDW Standard Deviation 42.6 fL (35.1-43.9); Red Blood Count 5.39 Miln/mm3 (4.50-5.90); White Blood Count 11.8 Thou/mm3 (3.8-10.6)
[2025-02-20 11:35] LABS: Alanine Aminotransferase 150 U/L (10-49); Albumin/Globulin Ratio 1.6 (1.2-2.2); Alkaline Phosphatase 77 U/L (46-116); Anion Gap 8 (7-16); Aspartate Amino Transferase 29 U/L (0-34); BUN/Creatinine Ratio 25 Ratio (12-20); Bilirubin,Total 0.8 mg/dL (0.3-1.2); Blood Urea Nitrogen 20 mg/dL (9-23); Calcium 8.9 mg/dL (8.3-10.6); Calcium (Corrected) 8.9 mg/dL (8.5-10.1); Carbon Dioxide 23.1 mMol/L (20.0-31.0); Chloride 103 mMol/L (98-107); Creatinine (Component) 0.8 mg/dL (0.6-1.3); Globulin 2.5 gm/dL (2.3-3.5); Glucose 137 mg/dL (74-106); Osmolality,Calculated 272 (275-295); Potassium 3.6 mMol/L (3.4-5.1); Sodium 134 mMol/L (136-145); Total Protein 6.5 gm/dL (5.7-8.2); eGFR > 60 See Note
== END 2025-02-21 23:59 | disposition home or self-care (01) ==
LOC: SCTC 10:38
PROVIDERS: PCP Optometrist; Referring Provider Internal Medicine Hematology & Oncology; Visit Provider Radiology Therapeutic Radiology
DX: C71.1 Malignant neoplasm of frontal lobe (principal); C71.2 Malignant neoplasm of temporal lobe; R11.0 Nausea; R51.9 Headache, unspecified; Z92.3 Personal history of irradiation
CPT/HCPCS: 80053; 81001; 85025; 96360; 99212; 99213; A4216; J7030; G0463

== ENCOUNTER 2025-02-23 12:44 | Emergency (ER) | payer MEDICAID, SELFPAY ==
[2025-02-23 13:12] VITALS: BP 121/77; PULSE 73; RESP 18; TEMP 37; O2SAT 98; BMI 28.3
--- NOTE | 2025-02-23 13:19 | XR_ITS ---
Examination: Abdomen sonogram, Limited Date and time of exam: February 23, 2025 1332 hours INDICATIONS: Epigastric pain beginning 4 days ago Technique: Real-time pizano scale transabdominal sonographic images of the upper abdomen obtained. Findings: Negative for gallstones Gallbladder wall 0.4 cm but the gallbladder is contracted Common bile duct normal 0.3 cm Pancreatic head 2.5 cm Liver 16.2 cm smooth contour no focal liver lesions Normal hepatopedal portal venous flow Patent IVC IMPRESSION: Negative for cholelithiasis Gallbladder wall is mildly thickened but the gallbladder is contracted, clinical correlation advised No gallbladder wall edema
--- NOTE | 2025-02-23 13:19 | EKG_ITS ---
[facility] Test Date: 2025-02-23 Pat Name: ELLIOTT CORBIN Department: Room: - Gender: Male Educational Technology Specialist: : 1975 Requested By: Garry Mann Order Number: [id number] Reading MD: Garry Mann Measurements Intervals [place] Rate: 68 P: 37 MS: 144 QRS: -43 QRSD: 100 T: 53 QT: 364 QTc: 388 Interpretive Statements SINUS RHYTHM PATTERN CONSISTENT WITH PULMONARY DISEASE INFERIOR MYOCARDIAL INFARCTION , OF INDETERMINATE AGE [40+ ms Q WAVE AND/OR ST/T ABNORMALITY IN II/aVF] Compared to ECG 09/29/2024 09:55:31 Myocardial infarct finding now present Early repolarization no longer present /store/S0/[id number]/ecg/[id number].pdf
--- NOTE | 2025-02-23 13:21 | PD.EDABDPN ---
ED Abdominal Pain RME/HPI General Chief Complaint: Abdominal Pain Stated complaint: ABD AND RIGHT FLANK PAIN X 4 DAYS; CHEMO Time seen by provider: 02/23/25 12:52 Arrival date/time: 02/23/25 12:44 RME / HPI RME / HPI narrative: 49-year-old male patient with significant history of neuroblastoma, status postresection currently on chemotherapy, came in for evaluation regarding epigastric pain. Onset of symptoms for the last 4 days as epigastric pain, described as sharp pain, radiating to the back. Patient denies any vomiting denies any fever denies any diarrhea or constipation denies any other complaints no medications taken prior to ER visit. Related Data Previous Rx's ?Medication ?Instructions ?Recorded pantoprazole 40 mg tablet,delayed 40 mg PO QDAY #20 tabs 02/23/25 release (Protonix) Allergies Allergy/AdvReac Type Severity Reaction Status Date / Time No Known Allergies Allergy Verified 02/23/25 12:49 Review of Systems Review of Systems Narrative Review of Systems: Review of system reviewed and within normal limits except mentioned in HPI ED Exam Narrative Physical exam: VITAL SIGNS: Reviewed. GENERAL APPEARANCE: Alert and interactive, follows commands, no acute distress, HEAD AND FACE: Non-traumatic. ENT: PERRL, pink conjunctivitis, eyelid no trauma, Mucous membrane moist. NECK: Supple, nontender, no nuchal rigidity. CHEST: No tenderness, no crepitus, no paradoxical movement, no retractions. LUNGS: Clear, well ventilated, symmetric, no rales, no wheezing, no ronchi, no stridor, good breath sounds bilaterally. HEART: Regular rate, regular rhythm, no murmur, no gallops. ABDOMEN: Soft, positive bowel sounds, nondistended, no guarding, epigastric tenderness, no rebound, no masses, RECTAL: Deferred. GENITAL: Deferred. NEUROLOGICAL: Gross motor function intact sensory function intact, Appropriate for age. MUSCULOSKELETAL: low back nontender, full range of motion. EXTREMITIES: Nontender, full range of motion. SKIN: Color pink, dry, no rash, no lacerations, no abrasions, no contusions. LYMPHATICS: Deferred. Course Quality Measures none Orders Category Date Time Status EKG (ED ONLY) *Do not use* NOW Care 02/23/25 13:19 Completed EKG (ED Only) Stat Exams 02/23/25 13:19 Draft US gall bladder Stat Exams 02/23/25 13:19 Completed CBC Stat Lab 02/23/25 14:34 Completed Comprehensive Metabolic Panel Stat Lab 02/23/25 14:34 Completed Lipase Stat Lab 02/23/25 14:34 Completed Prothrombin Time with INR Stat Lab 02/23/25 14:34 Completed UA, C/S IF [Urinalysis, C/S if Indicated] Stat Lab 02/23/25 14:22 Completed mg Hyd/Al Hyd/Mercedes Susp [Maalox Susp] Med 02/23/25 13:20 Discontinued 30 ml PO X1 ONE Vital Signs Vital signs: Vital Signs Temperature 98.6 F 02/23/25 13:12 Pulse Rate 73 02/23/25 13:12 Respiratory Rate 18 02/23/25 13:12 Blood Pressure 121/77 02/23/25 13:12 Pulse Oximetry (%) 98 02/23/25 13:12 Oxygen Delivery Method Room Air 02/23/25 13:12 Abdominal Pain MDM [facility] Narrative MDM Narrative:: 49-year-old male patient with significant history of neuroblastoma, status postresection currently on chemotherapy, came in for evaluation regarding epigastric pain. Onset of symptoms for the last 4 days as epigastric pain, described as sharp pain, radiating to the back. Patient denies any chest pain. Denies any shortness of breath. Patient denies any vomiting denies any fever denies any diarrhea or constipation denies any other complaints no medications taken prior to ER visit. Patient CBC showed no leukocytosis. Lipase is normal CMP unremarkable except for slightly elevated ALT of 97 urinalysis no UTI ultrasound of the gallbladder came back unremarkable. EKG showed normal sinus rhythm, ventricular rate of 68 bpm, no ST segment elevation depression noted. Patient was given Maalox with complete resolution of symptoms. Patient data External records reviewed:: None Clinical information provided by:: patient Social determinants that could affect healthcare access:: none Patient has the following chronic illnesses:: Neuroblastoma, currently on chemo How is presenting disease/condition affected by chronic disease/condition?: uneffected by Evaluation data The following diagnostics were reviewed and interpreted by me:: lab results, radiology exam(s) and EKG tracing(s) Lab and/or radiology exams considered but not ordered:: None Interpretation Summary: See results MDM Medications / Prescriptions Medications or Prescriptions considered but not ordered:: None Medication administrations:: Medication Administration History Discontinued Medications Al Hydrox/Mg Hydrox/Simethicone (Mg Hyd/Al Hyd/Mercedes (Maalox Reg) Susp 30 Ml Udc) 30 ml PO X1 ONE Stop: 02/23/25 13:21 Last Admin: 02/23/25 13:25 Dose: 30 ml Documented By: Maalox Consultations Consultation(s) initiated? (list below): No Diagnosis Differential diagnosis abdominal pain: abdominal pain and pancreatitis Most likely diagnosis given after review of the tests above:: Gastritis Admission Indicated Admission indicated?: not indicated Admission Request Was there a request for admission?: No Disposition Plan Disposition Plan: Discharge Discharge Attestation Discharge Attestation: The patient and all family members were given an opportunity to ask questions and understood the discharge instructions. Discharge instructions specifically effects, indications for sooner follow up or return to the emergency department, and the expected course of current diagnosis. Patient condition: Stable Discharge Plan Plan Patient Disposition: HOME (Self Care) Discharge Disposition comment: Stable Prescriptions/Referrals Prescriptions/Med Rec: New pantoprazole [Protonix] 40 mg tablet,delayed release (DR/EC) 40 mg PO QDAY Qty: 20 0RF Referrals: Camila Gupta MD [Primary Care Provider] - In 1 week Problem List Clinical Impression: Gastritis Patient/Caregiver Discharge Instructions Discharge Activity: activity as tolerated Education Materials: ED Gastritis (Adult) Additional Instructions: Thank you for the opportunity for serving you today. You are stable for discharged . You are advised to: Follow-up with your PCP in 1 to 2 days Return to ED for worsening of symptoms Increase oral fluids Take medication as prescribed Print Language: South Korean Stand Alone Forms: Mikala Award Info., Patient Portal Info Letter PA/CAMPBELL Supervising Physician DEDE/CAMPBELL Supervising Physician: MD power
[2025-02-23] MEDS: MG HYD/AL HYD/SIME (Maalox Reg) SUSP 30 ML UDC PO (13:25)
[2025-02-23 14:31] LABS: Collection Type, Urine Clean Catch; Squamous Epithelial Cell,Urine 0 /hpf (0-5)
[2025-02-23 14:37] LABS: Bilirubin,Urine Negative (Negative); Blood,Urine Negative (Negative); Clarity,Urine Clear (Clear/Hazy); Color,Urine Lt-Yellow (Lt Yel-Yel); Culture Indicated,Urine Not Indicated; Glucose, Urine Negative (Negative); Ketones,Urine Negative (Negative); Leukocyte Esterase,Urine Negative (Negative); Nitrite,Urine Negative (Negative); PH,Urine 5.5 (5.0-7.0); Protein,Urine Negative (Neg - Trace); RBC,Urine 3 /hpf (0-3); Specific Gravity,Urine 1.013 (1.001-1.035); Urobilinogen,Urine Negative mg/dL (0.0-1.0); WBC,Urine < 1 /hpf (0-5)
[2025-02-23 15:01] LABS: Basophils % (Auto) 0 % (0-2.5); Eosinophils # (Auto) 0.1 Thou/mm3 (0.0-0.5); Eosinophils % (Auto) 1 % (0-10); Hematocrit 47.7 % (41.0-53.0); Hemoglobin 16.8 g/dL (13.5-16.0); Immature Granulocytes % (Auto) 1 % (0-0); Immature Granulocytes Auto 0.13 Thou/mm3 (0.00-0.00); Lymphocytes # (Auto) 0.4 Thou/mm3 (1.0-4.8); Lymphocytes % (Auto) 4 % (10-50); Mean Corpuscular HGB Conc 35.2 g/dl (31.0-37.0); Mean Corpuscular Hemoglobin 30.1 pg (25.0-35.0); Mean Corpuscular Volume 86 fL (80-100); Monocytes # (Auto) 0.7 Thou/mm3 (0.0-0.8); Monocytes % (Auto) 7 % (0-12); Neutrophils # (Auto) 8.5 Thou/mm3 (1.8-7.7); Neutrophils % (Auto) 87 % (37-80); Nucleated Red Blood Cell % 0 /100 WBC (0); Platelet Count 145 Thou/mm3 (140-440); RDW Standard Deviation 42.6 fL (35.1-43.9); Red Blood Count 5.58 Miln/mm3 (4.50-5.90); White Blood Count 9.7 Thou/mm3 (3.8-10.6)
[2025-02-23 15:15] LABS: Alanine Aminotransferase 97 U/L (10-49); Albumin/Globulin Ratio 1.5 (1.2-2.2); Alkaline Phosphatase 77 U/L (46-116); Anion Gap 10 (7-16); Aspartate Amino Transferase 30 U/L (0-34); BUN/Creatinine Ratio 21 Ratio (12-20); Bilirubin,Total 0.7 mg/dL (0.3-1.2); Blood Urea Nitrogen 21 mg/dL (9-23); Calcium 8.5 mg/dL (8.3-10.6); Calcium (Corrected) 8.5 mg/dL (8.5-10.1); Carbon Dioxide 27.1 mMol/L (20.0-31.0); Chloride 102 mMol/L (98-107); Estimated Creatinine Clearance 99.6 mL/min (>60); Globulin 2.6 gm/dL (2.3-3.5); Glucose 110 mg/dL (74-106); Lipase 63 U/L (12-53); Osmolality,Calculated 281 (275-295); Potassium 4.1 mMol/L (3.4-5.1); Sodium 139 mMol/L (136-145); Total Protein 6.6 gm/dL (5.7-8.2); eGFR > 60 See Note
[2025-02-23 15:59] LABS: INR 0.9 (0.9-1.3); Prothrombin Time 10.2 Seconds (9.0-12.2)
[2025-02-23 17:28] VITALS: BP 128/79; PULSE 62; RESP 18; TEMP 36.4; O2SAT 97
== END 2025-02-23 17:55 | disposition home or self-care (01) ==
PROVIDERS: Nurse Practitioner Family; Emergency Provider Emergency Medicine; PCP Internal Medicine
DX: K29.70 Gastritis, unspecified, without bleeding (principal)
CPT/HCPCS: 36415; 76705; 80053; 81001; 83690; 85025; 85610; 93005; 99284; A9270

== ENCOUNTER 2025-03-14 13:01 | Outpatient (RCR) | payer MEDICAID, SELFPAY ==
[2025-03-07 07:56] LABS: Basophils % (Auto) 1 % (0-2.5); Eosinophils # (Auto) 0.1 Thou/mm3 (0.0-0.5); Eosinophils % (Auto) 3 % (0-10); Hematocrit 43.7 % (41.0-53.0); Hemoglobin 15.5 g/dL (13.5-16.0); Immature Granulocytes % (Auto) 1 % (0-0); Immature Granulocytes Auto 0.06 Thou/mm3 (0.00-0.00); Lymphocytes # (Auto) 0.7 Thou/mm3 (1.0-4.8); Lymphocytes % (Auto) 16 % (10-50); Mean Corpuscular HGB Conc 35.5 g/dl (31.0-37.0); Mean Corpuscular Hemoglobin 30.2 pg (25.0-35.0); Mean Corpuscular Volume 85 fL (80-100); Monocytes # (Auto) 0.5 Thou/mm3 (0.0-0.8); Monocytes % (Auto) 11 % (0-12); Neutrophils % (Auto) 69 % (37-80); Nucleated Red Blood Cell % 0 /100 WBC (0); Platelet Count 205 Thou/mm3 (140-440); RDW Standard Deviation 40.8 fL (35.1-43.9); Red Blood Count 5.13 Miln/mm3 (4.50-5.90); White Blood Count 4.3 Thou/mm3 (3.8-10.6)
[2025-03-07 08:09] LABS: Alanine Aminotransferase 43 U/L (10-49); Albumin, Serum 4.2 gm/dL (3.5-5.0); Albumin/Globulin Ratio 1.6 (1.2-2.2); Alkaline Phosphatase 98 U/L (46-116); Anion Gap 9 (7-16); Aspartate Amino Transferase 18 U/L (0-34); BUN/Creatinine Ratio 15 Ratio (12-20); Bilirubin,Total 0.7 mg/dL (0.3-1.2); Blood Urea Nitrogen 12 mg/dL (9-23); Calcium 8.7 mg/dL (8.3-10.6); Calcium (Corrected) 8.7 mg/dL (8.5-10.1); Carbon Dioxide 23.6 mMol/L (20.0-31.0); Chloride 106 mMol/L (98-107); Creatinine (Component) 0.8 mg/dL (0.6-1.3); Globulin 2.7 gm/dL (2.3-3.5); Glucose 103 mg/dL (74-106); Osmolality,Calculated 277 (275-295); Potassium 3.7 mMol/L (3.4-5.1); Sodium 139 mMol/L (136-145); Total Protein 6.9 gm/dL (5.7-8.2); eGFR > 60 See Note
--- NOTE | 2025-03-07 13:13 | CTCFLWUP_ITS ---
Patient: ELLIOTT CORBIN : 1975 Page 2 of 2 FOLLOW UP NOTE DATE OF SERVICE: 03/06/2025 NAME: ELLIOTT CORBIN ACCOUNT: [id number] : 1975 AGE: 49 INTERVAL HISTORY: Patient completed last radiation on 01/18/2025 with the Temodar. Patient started chemotherapy little after starting radiation maybe a week or 6 6 to 7 days. Patient is staking his Temodar. Subjective: Chief Complaint Right upper quadrant pain, severe constipation due to Tramadol History of Present Illness Venu is a patient with a history of cancer who recently visited the emergency room due to right upper quadrant pain. He reports severe constipation attributed to Tramadol use and has been managing it by increasing fluid intake, including water and electrolytes. Since the last visit, Venu underwent an MRI to assess his condition. The results, as communicated by Dr. Peña, indicate that the tumor has remained stable since October, with no changes observed. Some inflammation was noted towards the back, but it is not believed to be cancerous. Venu continues to take chemotherapy pills as part of his treatment regimen. The patient's recent surgical consultation yielded positive news, with the surgeon stating that there is no evidence of cancer recurrence. The surgeon recommended discontinuing steroids and scheduling another MRI for follow-up. Venu's cancer history includes successful surgical removal of the tumor, followed by radiation and chemotherapy as preventive measures. Venu appears to be adhering to his prescribed treatment plan, continuing with chemotherapy pills and following up with recommended imaging studies. He has not reported any new symptoms or significant changes in his overall health status beyond the constipation issue. Medications and Supplements - Tramadol - Causing severe constipation - Chemo pills - Steroids - Recommended to stop Review of Systems General: Negative for fever, chills, fatigue, muscle aches, or weight change. Gastrointestinal: Positive for severe constipation and right upper quadrant pain. Objective: Laboratory, Imaging, and Diagnostic Test Results - MRI (date not specified): - Tumor stable since October - Some inflammation noted towards the back ONCOLOGY HISTORY: DIAGNOSIS: Malignant neoplasm of frontal lobe (brain) [ICD10] C71.1 DATE OF DIAGNOSIS: 11/22/2024 STAGE/TNM: 1975 Study of the molecular features that [facility] indicates that this is most consistent with glioblastoma IDH wild-type WHO grade 4. Please see [facility] interpretation section of page 2 of pathology dated 10/01/2024 which is the second document in the mosaic for patient. 11/22/2024 There are postsurgical changes in the right middle cranial fossa from temporal craniotomy. Adjacent to the surgical cavity and more medial, there is fullness of the sulci with high TZ-FLAIR signal and subtle restricted diffusion involving the insular region, medial temporal lobe, and posteroinferior frontal lobe which is unchanged in appearance. In addition, there is subtle signal change involving the right periatrial white matter and hippocampal gyrus with probable extension into the right splenium of the corpus callosum which is also unchanged; however, slightly more conspicuous to the previous examination. There is no associated enhancement. Findings are likely related to non enhancing tumor. TREATMENT HISTORY: Care?Plan Start?Date Cycle Day Intent HISTORY OF PRESENT ILLNESS: 49-year-old male with a new diagnosis of GBM. Patient was diagnosed with GBM. Underwent craniotomy to remove large right frontotemporal mass. Patient was seen at [facility] and started on concurrent chemoradiation. There was a delay to received Temodar. Patient have completed chemotherapy with radiation. 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 Tobacco?Pack?per?Day:?0 Tobacco?Use:?DENIES ETOH?Use:?DENIES Drug?Note:?DENIES Social History Note:?LIVES WITH , 2 CHILDREN AGES 24 AND 13 MEDICATIONS: 1. Ambien - 10 mg 1 tab Every day before sleep 2. hydrocodone-acetaminophen - 5-325 mg 1 tab three times a day 3. memantine - 5 mg 2 tab twice a day 4. ondansetron HCl - 8 mg 1 tab every 8 hours as needed for nausea 5. pantoprazole - 40 mg 1 tab Daily 6. temozolomide - 100 mg 3 Capsule Daily 7. temozolomide - 140 mg 1 Capsule Daily 8. temozolomide - 5 mg 2 Capsule Daily Medications Last Reconciled by Remedios Mattson MA on 03/06/2025 ALLERGIES: No Known Allergies REVIEW OF SYSTEMS: A complete 14-point review of systems was performed and is negative except as noted in interval history. PHYSICAL EXAMINATION: VITAL SIGNS: Temperature?98, B/P?130/84, Oxygen?Saturation?96% Weight?190?lbs (Change?since?02/20/25:?-1.8?lbs) PAIN: 6 - Severe pain ECOG Performance Status: 0 - Asymptomatic and fully active GENERAL APPEARANCE: Appears well, in no apparent distress, appropriately interactive. HEENT: Normocephalic, no temporal wasting, normal conjunctiva, no scleral icterus, normal hearing, lips without lesions, neck normal range of motion. CARDIOVASCULAR: Not assessed. PULMONARY: Normal respiratory effort, no respiratory distress or use of accessory muscles, speaking in full sentences, no tachypnea. EXTREMITIES: No pedal edema or cyanosis. SKIN: Normal skin appearance. NEUROLOGIC: Alert and oriented x4. PSHYCHIATRIC: Appropriate affect, mood normal, behavior normal, intact thought and speech. LABORATORY DATA: I have personally reviewed and interpreted each of the patient?s relevant lab tests, abnormal findings are below: Date 02/23/25 03/07/25 ??WHITE?BLOOD?COUNT?(Thou/mm3) 9.7 4.3 ??RED?BLOOD?COUNT?(Miln/mm3) 5.58 5.13 ??HEMOGLOBIN?(gm/dl) 16.8?H 15.5 ??HEMATOCRIT?(%) 47.7 43.7 ??PLATELET?COUNT?(Thou/mm3) 145 205 ??NEUTROPHILS?%,?AUTO?(%) 87?H 69 ??LYMPH?%,?AUTO?(%) 4?L 16 ??NEUTROPHILS,?AUTO?(Thou/mm3) 8.5?H 3.0 ??GLUCOSE,RANDOM?(mg/dL) 110?H 103 ??BLOOD?UREA?NITROGEN?(mg/dL) 21 12 ??CREATININE?(mg/dL) 1.00 0.80 ??SODIUM?(mmol/L) 139 139 ??POTASSIUM?(mmol/L) 4.1 3.7 ??CHLORIDE?(mmol/L) 102 106 ??CrCl?(CandG)?(ml/min) 92.61 115.24 ??AST/SGOT?(Unit/L) 30 18 ??ALT/SGPT?(Unit/L) 97?H 43 ??ALKALINE?PHOSPHATASE?(Unit/L) 77 98 ??BILIRUBIN,?TOTAL?(mg/dL) 0.7 0.7 ??PROTEIN?TOTAL?(gm/dl) 6.6 6.9 ??ALBUMIN,?SERUM?(gm/dl) 4.0 4.2 ??GLOBULIN?(gm/dl) 2.6 2.7 ??ALBUMIN/GLOBULIN?RATIO 1.5 1.6 ??CALCIUM,?SERUM?(mg/dL) 8.5 8.7 ??CALCIUM?SERUM?(CORRECTED)?(mg/dL) 8.5 8.7 ASSESSMENT/PLAN: GBM WHO grade 4 S/p resection Concurrent chemoradiation with Temodar completed on 01/18/2025 Assessment and Plan: Venu, a patient with a history of cancer and surgery, presented with right upper quadrant pain and severe constipation, and underwent an MRI to evaluate tumor status. Cancer status post-surgery Assessment: Patient has a history of cancer treated with surgery, radiation, and chemotherapy. Recent MRI shows stable tumor size since October, with no evidence of cancer recurrence. Some inflammation noted posteriorly, which is not believed to be cancerous. The surgeon does not suspect any cancer recurrence based on the imaging results. Plan: - Continue current chemotherapy regimen (pills) - Schedule follow-up MRI between April 13 and April 20, 2025 - Follow-up appointment on April 23, 2025 - Clinician review of MRI results in the first week of April 2025 - Discontinue steroids as per surgeon's recommendation Right upper quadrant pain Assessment: Patient reported to the emergency room due to right upper quadrant pain. The etiology of the pain is not specified in the transcript, but it may be related to the patient's history of cancer or the noted inflammation on MRI. Plan: - Monitor symptoms - Reassess during follow-up appointments Severe constipation Assessment: Patient reports severe constipation, attributed to Tramadol use. He has been managing symptoms with increased water and electrolyte intake. Plan: - Continue hydration with water and electrolytes - Monitor symptoms - Reassess during follow-up appointments RETURN TO CLINIC: BILLING AND COMPLIANCE: I reviewed external records from providers outside my specialty as summarized above. I spent a total of 50 minutes on this patient?s care on the day of their visit excluding time spent related to any billed procedures. This time includes time spent with the patient as well as time spent documenting in the medical record, reviewing patients records and tests, obtaining history, placing orders, communicating with other healthcare professionals, counseling the patient, family or caregiver, and/or care coordination for the diagnoses above. Electronically Signed by: Cal Patel MD T: 1:11 PM CC: PCP: Camila Gupta Referring: Camila Gupta This document was completed utilizing speech recognition software. Grammatical errors, random word insertions, pronoun errors, and incomplete sentences are an occasional consequence of this system due to software limitations, ambient noise, and hardware issues. Any formal questions or concerns about the content, text or information contained within the body of this dictation should be directly addressed to the provider for clarification.
== END 2025-03-24 23:59 | disposition home or self-care (01) ==
LOC: SCTC 13:01
PROVIDERS: Internal Medicine Hematology & Oncology; PCP Internal Medicine; Referring Provider Internal Medicine; Visit Provider Radiology Therapeutic Radiology
DX: C71.1 Malignant neoplasm of frontal lobe (principal); K59.00 Constipation, unspecified
CPT/HCPCS: 36591; 80053; 85025; 96360; 99213; A4216; J7030; G0463

== ENCOUNTER 2025-03-22 06:07 | Emergency (ER) | payer MEDICAID, SELFPAY ==
[2025-03-22 06:08] VITALS: BMI 30.9
[2025-03-22 06:12] VITALS: BP 135/83; PULSE 62; RESP 18; TEMP 36.4; O2SAT 98
--- NOTE | 2025-03-22 06:33 | XR_ITS ---
Examination: CT abdomen and pelvis without contrast. Coronal 3-D reconstructions. Sagittal 2-D reconstructions. Date and time of exam:March 22, 2025, 0746 hours INDICATIONS: Lower back pain and right flank pain today CTDI: vol (mGy): 8.97 DLP: (mGycm): 571 Technique: Axial images of the abdomen have been obtained, 3 mm slice thickness Intravenous contrast material has not been administered. Low dose protocols were performed. One or more of the following dose reduction techniques were used; automated exposure control, adjustment of the mA and/or KV according to patient size, use of iterative reconstruction technique. Findings: No focal liver or splenic lesion No gallstones No pancreatic or adrenal mass No renal or ureteral calculi, no hydronephrosis No bowel obstruction. Normal appendix. No diverticulitis. Negative for prostatomegaly. No bladder mass or bladder calculi. Small fat-containing inguinal hernias. Advanced degenerative disc disease L5-S1, 6 mm right paracentral disc bulge L5-S1 axial image 154 displacing the right S1 nerve root and producing moderate bilateral L5 ganglionic compression IMPRESSION: Normal appendix No renal or ureteral calculi L5-S1 advanced degenerative disc disease L5-S1 6 mm right paracentral disc bulge displacing the right S1 nerve root and producing moderate bilateral L5 ganglionic compression, consider MRI lumbar spine without contrast follow-up
--- NOTE | 2025-03-22 06:33 | XR_ITS ---
Examination: Lumbar spine 3 views TECHNIQUE: AP lateral: Lateral lower lumbar spine 3 views Date and time: March 22, 2025 0721 hours INDICATIONS: Lower back pain for months FINDINGS: Adequate alignment lumbar vertebral bodies on the lateral view No lumbar fracture Moderate disc narrowing L4-L5 Advanced degenerative disc disease L5-S1 Moderate lumbar spondylosis IMPRESSION: No fracture Advanced degenerative disc disease L5-S1
--- NOTE | 2025-03-22 06:35 | EDNOTE_ITS ---
<Statement entered by Mary Lopez MD - 03/23/25 06:32> As co-signing physician, I was present and available for consult prn. I concur with the plan and care as documented by the midlevel provider. ED Back Injury Pain RME/HPI General Chief Complaint: Back Pain/Injury Stated Complaint: LOWER BACK PAIN X 4DAYS Time Seen by Provider: 03/22/25 06:22 Source: patient Arrival date/time: 03/22/25 06:07 49-year-old male with no known medical history presents to the emergency room with a chief complaint of right-sided flank pain and lumbar pain x 4 days Mode of arrival: ambulatory Limitations: no limitations Related Data Previous Rx's ?Medication ?Instructions ?Recorded pantoprazole 40 mg tablet,delayed 40 mg PO QDAY #20 ta bs 02/23/25 release (Protonix) Allergies Allergy/AdvReac Type Severity Reaction Status Date / Time No Known Allergies Allergy Verified 02/23/25 12:49 Review of Systems Review of Systems Systems Reviewed: All systems reviewed, normal except as documented Constitutional Constitutional: Reports system reviewed and no additional complaints, except as documented, Denies fatigue, Denies fever(s), Denies headache(s) and Denies weakness Eyes Eyes: Reports system reviewed and no additional complaints, except as documented, Denies blurry vision and Denies change in vision ENT Ears, Nose, Mouth, and Throat: Reports system reviewed and no additional complaints, except as documented, Denies otalgia, Denies headache(s), Denies nasal congestion, Denies throat swelling and Denies vertigo Cardiovascular Cardiovascular: Reports system reviewed and no additional complaints, except as documented, Denies chest pain, Denies dyspnea and Denies dyspnea on exertion Respiratory Respiratory: Reports system reviewed and no additional complaints, except as documented, Denies chest congestion, Denies cough, Denies dyspnea, Denies dyspnea on exertion and Denies wheezing Gastrointestinal Gastrointestinal: Reports system reviewed and no additional complaints, except as documented, Denies abdominal pain, Reports cramping, Reports nausea and Denies vomiting Genitourinary Genitourinary: Reports system reviewed and no additional complaints, except as documented, Denies dysuria and Denies hematuria Musculoskeletal Musculoskeletal: Reports system reviewed and no additional complaints, except as documented and Reports back pain Integumentary/Breasts Skin/Breast: Reports system reviewed and no additional complaints, except as documented and Denies wounds Neurologic Neurologic: Reports system reviewed and no additional complaints, except as documented, Denies confusion, Denies headache(s), Denies lack of coordination, Denies vertigo and Denies weakness Psychiatric Psychiatric: Reports system reviewed and no additional complaints, except as documented, Denies anxiety, Denies confusion, Denies depression, Denies paranoia, Denies suicidal ideation and Denies tactile hallucinations Endocrine Endocrine: Reports system reviewed and no additional complaints, except as documented and Denies fatigue Hematologic/Lymphatic Hematologic/Lymphatic: Reports system reviewed and no additional complaints, except as documented and Denies lymphadenopathy Allergic/Immunologic Allergic/Immunologic: Reports system reviewed and no additional complaints, except as documented, Denies throat swelling, Denies urticaria and Denies wheez ing Past Medical History Past Medical History CARDIAC: Positive Hypertension; Negative Cardiac Disorders or Congestive Heart Failure RESPIRATORY: Negative Chronic Obstructive Pulmonary Disease (COPD) GENITOURINARY: Negative Genitourinary Disorders or Renal Disease ENDOCRINE: Negative Diabetes Mellitus Type 1 or Diabetes Mellitus Type 2 Social History SMOKING STATUS: Never smoker ED Exam General Limitations: Present no limitations General appearance: Present alert and in no apparent distress Head Head exam: Present atraumatic Eye Eye exam: Present normal appearance, PERRL and EOMI ENT ENT exam: Present normal exam, normal oropharynx and mucous membranes moist Neck Neck exam: Present normal inspection, full ROM and trachea midline Chest Chest inspection: Present normal inspection and symmetric chest wall rise Respiratory Respiratory exam: Present normal lung sounds bilaterally Cardiovascular Cardiovascular exam: Present regular rate, normal rhythm and normal heart sounds Abdominal Exam Abdominal exam: Present soft and normal bowel sounds Extremities Exam Extremities exam: Present normal inspection and full ROM Back Exam Back exam: Present normal inspection, full ROM, tenderness and CVA tenderness (R) Neurological Exam Neurological exam: Present alert, oriented X3 and CN II-XII intact Psychiatric Psychiatric exam: Present normal affect and normal mood Skin Skin exam: Present warm, dry, intact and normal color Course Quality Measures none Orders Category Date Time Status CT abdomen pelvis wo con Stat Exams 03/22/25 06:33 Completed XR lumbar spine 2-3V Stat Exams 03/22/25 06:33 Completed CBC Stat Lab 03/22/25 06:50 Completed CMP [Comprehensive Metabolic Panel] Stat Lab 03/22/25 06:50 Completed Lipase Stat Lab 03/22/25 06:50 Completed UA [Urinalysis] Stat Lab 03/22/25 07:01 Completed Urine Culture Stat Lab 03/22/25 07:01 Received Ketorolac Inj [Toradol Inj] Med 03/22/25 06:33 Discontinued 30 mg IM X1 ONE Vital Signs Vital signs: Vital Signs Temperature 97.6 F 03/22/25 06:12 Pulse Rate 62 03/22/25 06:12 Respiratory Rate 18 03/22/25 06:12 Blood Pressure 135/83 H 03/22/25 06:12 Pulse Oximetry (%) 98 03/22/25 06:12 Oxygen Delivery Method Room Air 03/22/25 06:12 O2 saturation 98% within normal limits Back Pain / Injury MDM Narrative MDM Narrative:: 49-year-old male with no known medical history presents to the emergency room with a chief complaint of right-sided flank pain and lumbar pain x 4 days Patient is hemodynamically stable and in no apparent distress Physical examination shows a normal steady gait. The patient states he is having right-sided flank pain and lumbar back pain that has been going on for the last 4 days. Patient denies any fevers and hematuria or any pain in his abdominal area. A CT of the abdomen and pelvis was completed and shows an L5-S1 6 mm right paracentral disc bulge. The patient was educated that he will need to follow-up with his primary care provider regarding this for further management as the radiologist did recommend an MRI. The patient denies any saddle anesthesia any loss of bowel or bladder function any numbness to the lower extremities and has a normal steady gait. Patient refused any pain medication. Patient was discharged and educated to follow-up with primary care provider in the next 24 to 48 hours and return to the emergency room for any evidence of worsening signs or symptoms Patient data External records reviewed:: [facility] previous records Clinical information provided by:: patient Social determinants that could affect healthcare access:: none Patient has the following chronic illnesses:: No chronic illness How is presenting disease/condition affected by chronic disease/condition?: no chronic disease Evaluation data The following diagnostics were reviewed and interpreted by me:: lab results and radiology exam(s) Lab and/or radiology exams considered but not ordered:: Labs and radiology exams considered and ordered Interpretation Summary: CT abdomen and pelvis-Findings: No focal liver or splenic lesion No gallstones No pancreatic or adrenal mass No renal or ureteral calculi, no hydronephrosis No bowel obstruction. Normal appendix. No diverticulitis. Negative for prostatomegaly. No bladder mass or bladder calculi. Small fat-containing inguinal hernias. Advanced degenerative disc disease L5-S1, 6 mm right paracentral disc bulge L5-S1 axial image 154 displacing the right S1 nerve root and producing moderate bilateral L5 ganglionic compression IMPRESSION: Normal appendix No renal or ureteral calculi L5-S1 advanced degenerative disc disease L5-S1 6 mm right paracentral disc bulge displacing the right S1 nerve root and producing moderate bilateral L5 ganglionic compression, consider MRI lumbar spine without contrast follow-up Medications / Prescriptions Medications or Prescriptions considered but not ordered:: Medication given Medication administrations:: Medication Administration History Discontinued Medications Ketorolac Tromethamine (Ketorolac Inj 60 Mg/2 Ml Vial) 30 mg IM X1 ONE Stop: 03/22/25 06:34 Last Admin: 03/22/25 06:52 Dose: Not Given Documented By: CB Non-Admin Reason: Patient Refused Medication given Consultations Consultation(s) initiated? (list below): No Diagnosis Differential diagnosis back pain/injury: strain of lumbar region, renal colic, thoracic back pain and other (Lumbar disc bulge) Most likely diagnosis given after review of the tests above:: Lumbar disc bulge Admission Indicated Admission indicated?: not indicated Admission Request Was there a request for admission?: No Disposition Plan Disposition Plan: Discharge Discharge Attestation Discharge Attestation: The patient and all family members were given an opportunity to ask questions and understood the discharge instructions. Discharge instructions specifically effects, indications for sooner follow up or return to the emergency department, and the expected course of current diagnosis. Patient condition: Stable Discharge Plan Plan Patient Disposition: HOME (Self Care) Discharge Disposition comment: Stable Prescriptions/Referrals Prescriptions/Med Rec: No Action pantoprazole [Protonix] 40 mg tablet,delayed release (DR/EC) 40 mg PO QDAY Qty: 20 0RF Referrals: Temporary Provider,ED [Physician] - In 1 week Problem List Clinical Impression: Bulging of lumbar intervertebral disc Patient/Caregiver Discharge Instructions Education Materials: Common Spine and Disk Problems Additional Instructions: Por favor, consulte con tejada m?dico de cabecera en las pr?ximas 24 a 48 horas. Se realiz? joie tomograf?a computarizada de tejada columna lumbar y se detect? joie protrusi?n discal en la sydnee lumbar. Nuestro radi?logo recomienda joie resonancia magn?shirley si los signos y s?ntomas persisten. Por favor, consulte con tejada m?dico de cabecera para el manejo de esta protrusi?n discal lumbar, ya que es la causa de viktor s?ntomas. Si observa cualquier signo de empeoramiento de los signos o s?ntomas, acuda a urgencias de inmediato. Print Language: Kyrgyz Stand Alone Forms: Mikala Award Info., Work/School Release, Patient Portal Info Letter
[2025-03-22 07:03] LABS: Basophils # (Auto) 0.1 Thou/mm3 (0.0-0.2); Basophils % (Auto) 1 % (0-2.5); Eosinophils # (Auto) 0.3 Thou/mm3 (0.0-0.5); Eosinophils % (Auto) 5 % (0-10); Hematocrit 43.6 % (41.0-53.0); Hemoglobin 15.1 g/dL (13.5-16.0); Immature Granulocytes % (Auto) 1 % (0-0); Immature Granulocytes Auto 0.08 Thou/mm3 (0.00-0.00); Lymphocytes # (Auto) 1.2 Thou/mm3 (1.0-4.8); Lymphocytes % (Auto) 21 % (10-50); Mean Corpuscular HGB Conc 34.6 g/dl (31.0-37.0); Mean Corpuscular Hemoglobin 30.1 pg (25.0-35.0); Mean Corpuscular Volume 87 fL (80-100); Monocytes # (Auto) 0.6 Thou/mm3 (0.0-0.8); Monocytes % (Auto) 10 % (0-12); Neutrophils # (Auto) 3.5 Thou/mm3 (1.8-7.7); Neutrophils % (Auto) 61 % (37-80); Nucleated Red Blood Cell % 0 /100 WBC (0); Platelet Count 270 Thou/mm3 (140-440); RDW Standard Deviation 40.3 fL (35.1-43.9); Red Blood Count 5.02 Miln/mm3 (4.50-5.90); White Blood Count 5.8 Thou/mm3 (3.8-10.6)
[2025-03-22 07:14] LABS: Collection Type, Urine Clean Catch
[2025-03-22 07:24] LABS: Alanine Aminotransferase 18 U/L (10-49); Albumin, Serum 4.5 gm/dL (3.5-5.0); Albumin/Globulin Ratio 1.6 (1.2-2.2); Alkaline Phosphatase 95 U/L (46-116); Anion Gap 8 (7-16); Aspartate Amino Transferase 16 U/L (0-34); BUN/Creatinine Ratio 10 Ratio (12-20); Bilirubin,Total 0.6 mg/dL (0.3-1.2); Blood Urea Nitrogen 9 mg/dL (9-23); Calcium 10.1 mg/dL (8.3-10.6); Calcium (Corrected) 10.1 mg/dL (8.5-10.1); Carbon Dioxide 25.7 mMol/L (20.0-31.0); Chloride 103 mMol/L (98-107); Creatinine (Component) 0.9 mg/dL (0.6-1.3); Estimated Creatinine Clearance 104.9 mL/min (>60); Globulin 2.8 gm/dL (2.3-3.5); Glucose 106 mg/dL (74-106); Lipase 44 U/L (12-53); Osmolality,Calculated 272 (275-295); Potassium 3.8 mMol/L (3.4-5.1); Sodium 137 mMol/L (136-145); Total Protein 7.3 gm/dL (5.7-8.2); eGFR > 60 See Note
[2025-03-22 07:27] LABS: Bilirubin,Urine Negative (Negative); Blood,Urine Negative (Negative); Clarity,Urine Clear (Clear/Hazy); Color,Urine Lt-Yellow (Lt Yel-Yel); Glucose, Urine Negative (Negative); Ketones,Urine Negative (Negative); Leukocyte Esterase,Urine Negative (Negative); Nitrite,Urine Negative (Negative); PH,Urine 6.5 (5.0-7.0); Protein,Urine Negative (Neg - Trace); RBC,Urine < 1 /hpf (0-3); Specific Gravity,Urine 1.012 (1.001-1.035); Squamous Epithelial Cell,Urine 1 /hpf (0-5); Urobilinogen,Urine Negative mg/dL (0.0-1.0); WBC,Urine < 1 /hpf (0-5)
== END 2025-03-22 08:39 | disposition home or self-care (01) ==
PROVIDERS: Nurse Practitioner Family; Emergency Provider Emergency Medicine; PCP Family Medicine
DX: M51.360 Other intervertebral disc degeneration, lumbar region with discogenic back pain only (principal); M51.17 Intervertebral disc disorders with radiculopathy, lumbosacral region; M51.372 Other intervertebral disc degeneration, lumbosacral region with discogenic back pain and lower extremity pain
CPT/HCPCS: 36415; 72100; 74176; 80053; 81001; 83690; 85025; 87086; 99284

== ENCOUNTER 2025-04-29 09:56 | Emergency (ER) | payer MEDICAID, SELFPAY ==
[2025-04-29 10:25] VITALS: BP 120/79; PULSE 75; RESP 18; TEMP 36.9; O2SAT 97; BMI 26.7
--- NOTE | 2025-04-29 10:47 | EDNOTE_ITS ---
ED Skin Abcess FB-RME/HPI General Chief complaint: Skin/Abscess/Foreign Body Stated complaint: PAINFUL RASH TO RIGHT SIDE OF FACE Time Seen by Provider: 04/29/25 10:06 Arrival date/time: 04/29/25 09:56 This is a 50-year-old male that comes into the emergency room with complaints of rash to the right side of his face. Patient states he has quite a medical history. Patient states he was diagnosed with a brain tumor in September 2024. Patient had surgery then. Per patient's patient had neuroblastoma. Related Data Previous Rx's ?Medication ?Instructions ?Recorded pantoprazole 40 mg tablet,delayed 40 mg PO QDAY #20 ta bs 02/23/25 release (Protonix) valacyclovir 1 gram tablet 1,000 mg PO TID 7 days #21 tabs 04/29/25 Allergies Allergy/AdvReac Type Severity Reaction Status Date / Time No Known Allergies Allergy Verified 04/29/25 09:59 Course Orders Category Date Time Status Mao Lamp to Bedside X1 Care 04/29/25 11:05 Active Fluorescein Sodium [Bio-Madisyn] Med 04/29/25 11:05 Discontinued 1 mg RIGHT EYE X1 ONE Ibuprofen Tab [Motrin Tab] Med 04/29/25 12:27 Discontinued 800 mg PO X1 ONE TETRACAINE Op Alana 0.5% [Pontocaine Op Alana 0.5%] Med 04/29/25 11:05 Discontinued 1 drop RIGHT EYE X1 ONE valACYclovir [Valtrex] Med 04/29/25 12:27 Discontinued 1,000 mg PO X1 ONE Vital Signs Vital signs: Vital Signs Temperature 98.5 F 04/29/25 10:25 Pulse Rate 75 04/29/25 10:25 Respiratory Rate 18 04/29/25 10:25 Blood Pressure 120/79 04/29/25 10:25 Pulse Oximetry (%) 97 04/29/25 10:25 Oxygen Delivery Method Room Air 04/29/25 10:25 PROCEDURES: Mao Lamp Exam Right eye: Flourescein uptake:: No Mao Lamp Findings: Other (no abrasions, no ulcers seen, pt has one mole on each side of eye 9 and 3 o clock position thaqt per patient has been diagnosed by an opthamologist, brown in color ) Additional comments: no herpes simplex keratitis seen Skin / Abscess / Foreign Body MDM Narrative MDM Narrative:: Patient's shingle rash this seems to be affecting V2 dermatome area. Patient has some lesions above right side of lip on right side of cheek and under right eyelid. Patient does not appear to have lesions on face. I talked to patient about possibly steroids. Patient was told by his brain surgeon that they would not do any more steroids and it did not want him to be on any kind of steroids. Will hold off on steroids. Patient is already taking gabapentin. I will dose patient with valacyclovir he will get a dose of 1 g by mouth now. Patient will be sent home with prescription to take 1 g 3 times a day. Patient talked about the importance of follow-up with his primary provider in 1 to 2 days. Come back to the emergency room symptoms change or worsen I do not see any herpes simplex keratitis during Mao lamp exam with fluorescein however I did explain the importance of follow-up with his primary provider and may need to see an rock mason apprentice to make sure nothing develops in the right eye. Patient having no vision issues. Patient feels comfortable with discharge at this time. Medications / Prescriptions Medication administrations:: Medication Administration History Discontinued Medications Fluorescein Sodium (Fluorescein Sod 1 Mg Strp) 1 mg RIGHT EYE X1 ONE Stop: 04/29/25 11:06 Last Admin: 04/29/25 11:36 Dose: 1 mg Documented By: GELY Comments: USED BY PROVIDER Ibuprofen (Ibuprofen Tab 400 Mg Tablet) 800 mg PO X1 ONE Stop: 04/29/25 12:28 Tetracaine HCl (Tetracaine Pf Op Alana 0.5% 4 Ml Drpette) 1 drop RIGHT EYE X1 ONE Stop: 04/29/25 11:06 Last Admin: 04/29/25 11:36 Dose: 1 drop Documented By: GELY Comments: USED BY PROVIDER Valacyclovir HCl (Valacyclovir 500 Mg Tablet (Non-Formulary)) 1,000 mg PO X1 ONE Stop: 04/29/25 12:28 Discharge Plan Plan Patient Disposition: HOME (Self Care) Patient condition on transfer: Stable Prescriptions/Referrals Prescriptions/Med Rec: New valacyclovir 1 gram tablet 1,000 mg PO TID 7 Days Qty: 21 0RF No Action pantoprazole [Protonix] 40 mg tablet,delayed release (DR/EC) 40 mg PO QDAY Qty: 20 0RF Referrals: Moise Boudreaux MD [Primary Care Provider] - In 1 week Problem List Clinical Impression: Shingles Patient/Caregiver Discharge Instructions Discharge Activity: activity as tolerated Education Materials: ED Shingles (Herpes Zoster) Additional Instructions: Dm un kristin con tejada medico de cabecera en las proximas 24-48 horas. Regrese a la prema de emergencias si hay evidencia de que los signos o sintomas empeoran. Print Language: Yoruba Stand Alone Forms: Mikala Award Info., Patient Portal Info Letter PA/PHYSICAL OPTICS TEACHER Supervising Physician PA/PHYSICAL OPTICS TEACHER Supervising Physician: sanjeev
[2025-04-29] MEDS: FLUORESCEIN SOD 1 MG STRP RIGHT EYE (11:36)
[2025-04-29] MEDS: TETRACAINE PF OP SOL 0.5% 4 ML DRPETTE 1 DROP RIGHT EYE (11:36)
[2025-04-29] MEDS: valACYclovir 500 MG TABLET (NON-FORMULARY) 1000 MG PO (12:41)
[2025-04-29] MEDS: IBUPROFEN TAB 400 MG TABLET 800 MG PO (12:41)
[2025-04-29 12:58] VITALS: BP 126/70; PULSE 72; RESP 18; TEMP 36.8; O2SAT 99
== END 2025-04-29 12:58 | disposition home or self-care (01) ==
PROVIDERS: Emergency Provider Emergency Medicine; PCP Family Medicine
DX: B02.9 Zoster without complications (principal)
CPT/HCPCS: 99283; A9270

== ENCOUNTER 2025-05-02 08:32 | Outpatient (RCR) | payer MEDICAID, SELFPAY | END 2025-05-24 23:59 | disposition home or self-care (01) | LOC: SCTC 08:32 | PROVIDERS: PCP Internal Medicine; Referring Provider Family Medicine; Visit Provider Internal Medicine Hematology & Oncology | DX: C71.1 Malignant neoplasm of frontal lobe (principal); C71.2 Malignant neoplasm of temporal lobe; K59.00 Constipation, unspecified; R10.11 Right upper quadrant pain; Z92.3 Personal history of irradiation; Z92.21 Personal history of antineoplastic chemotherapy | CPT/HCPCS: 99212; 99213; G0463 ==

== ENCOUNTER 2025-06-14 14:01 | Outpatient (RCR) | payer MEDICAID, SELFPAY ==
--- NOTE | 2025-06-14 15:09 | CTCFLWUP_ITS ---
[facility] [address] [place], [place] [address] FOLLOW-UP NOTE Date: 06/14/2025 MR#: [id number] Name: ELLIOTT CORBIN : 1975 Dx: C71.1 Malignant neoplasm of frontal lobe (brain) Identification. Patient with WHO grade 4 GBM status post resection completed [facility] 10/01/2024. Postop XRT 6000 cGy via VMAT to the right temporal region completed 01/16/2025. MRI 02/11/2025 postop changes with progression of FLAIR abnormality in tumor bed area likely be treatment related according to [facility]. Still taking oral cancer pills under Dr. Patel's direction. Made extra appointment to see me because recently discovered to have shingles involving the right side of face. Was given antivirals and currently on gabapentin 1800 mg in divided doses. As I see him today the right side of the face does the appear as if the shingles rash appears to be healing. Assessment #1 grade 4 GBM status post resection [facility] 10/01/2024. #2 completed. VMAT XRT to right temporal region with concurrent Temodar 01/16/2025. #3. Weaned off 6 months worth of memantine, also no longer taking Decadron. #4. Posttreatment MRI 02/11/2025 suggests treatment related side effects according to [facility]. #5. New MRI scheduled for next month at [facility]. #6. Appears to be healing from recent shingles of the right side of the face, completed antivirals currently on gabapentin for pain #7. I will see him in 2 months for follow-up. Electronically signed by: Jayro Flores M.D. 06/14/2025 3:06 PM
== END 2025-06-24 23:59 | disposition home or self-care (01) ==
LOC: SCTC 14:01
PROVIDERS: PCP Family Medicine; Referring Provider Family Medicine; Visit Provider Radiology Therapeutic Radiology
DX: C71.1 Malignant neoplasm of frontal lobe (principal); Z92.3 Personal history of irradiation
CPT/HCPCS: 99213; G0463

== ENCOUNTER → 2025-07-09 | Outpatient (CLI) | payer MEDICAID, SELFPAY ==
[2025-07-09 08:41] LABS: Collection Type, Urine Clean Catch
[2025-07-09 09:58] LABS: Basophils # (Auto) 0.1 Thou/mm3 (0.0-0.2); Basophils % (Auto) 1 % (0-2.5); Eosinophils # (Auto) 0.0 Thou/mm3 (0.0-0.5); Eosinophils % (Auto) 0 % (0-10); Hematocrit 46.2 % (41.0-53.0); Hemoglobin 15.8 g/dL (13.5-16.0); Immature Granulocytes Auto 0.88 Thou/mm3 (0.00-0.00); Lymphocytes # (Auto) 0.6 Thou/mm3 (1.0-4.8); Lymphocytes % (Auto) 4 % (10-50); Mean Corpuscular HGB Conc 34.2 g/dl (31.0-37.0); Mean Corpuscular Hemoglobin 31.3 pg (25.0-35.0); Mean Corpuscular Volume 92 fL (80-100); Monocytes # (Auto) 0.8 Thou/mm3 (0.0-0.8); Monocytes % (Auto) 5 % (0-12); Neutrophils # (Auto) 12.0 Thou/mm3 (1.8-7.7); Neutrophils % (Auto) 84 % (37-80); Nucleated Red Blood Cell # 0.02 Thou/mm3 (0.00-0.00); Nucleated Red Blood Cell % 0 /100 WBC (0); Platelet Count 197 Thou/mm3 (140-440); RDW Standard Deviation 47.8 fL (35.1-43.9); Red Blood Count 5.05 Miln/mm3 (4.50-5.90); White Blood Count 14.3 Thou/mm3 (3.8-10.6)
[2025-07-09 10:30] LABS: Alanine Aminotransferase 543 U/L (10-49); Albumin, Serum 3.7 gm/dL (3.5-5.0); Albumin/Globulin Ratio 1.9 (1.2-2.2); Alkaline Phosphatase 90 U/L (46-116); Anion Gap 11 (7-16); Aspartate Amino Transferase 159 U/L (0-34); BUN/Creatinine Ratio 21 Ratio (12-20); Bilirubin,Total 0.6 mg/dL (0.3-1.2); Blood Urea Nitrogen 17 mg/dL (9-23); Calcium 8.7 mg/dL (8.3-10.6); Calcium (Corrected) 8.9 mg/dL (8.5-10.1); Carbon Dioxide 21.8 mMol/L (20.0-31.0); Chloride 104 mMol/L (98-107); Creatinine (Component) 0.8 mg/dL (0.6-1.3); Globulin 2.0 gm/dL (2.3-3.5); Glucose 182 mg/dL (74-106); Osmolality,Calculated 280 (275-295); Potassium 4.4 mMol/L (3.4-5.1); Sodium 137 mMol/L (136-145); Total Protein 5.7 gm/dL (5.7-8.2); Uric Acid 3.5 mg/dL (3.7-9.2); eGFR > 60 See Note
[2025-07-09 11:01] LABS: Bilirubin,Urine Negative (Negative); Blood,Urine Negative (Negative); Clarity,Urine Clear (Clear/Hazy); Color,Urine Yellow (Lt Yel-Yel); Glucose, Urine 3+ (Negative); Ketones,Urine Trace (Negative); Leukocyte Esterase,Urine Negative (Negative); Nitrite,Urine Negative (Negative); PH,Urine 5.5 (5.0-7.0); Protein,Urine Trace (Neg - Trace); RBC,Urine 2 /hpf (0-3); Specific Gravity,Urine 1.034 (1.001-1.035); Squamous Epithelial Cell,Urine 1 /hpf (0-5); Urobilinogen,Urine Negative mg/dL (0.0-1.0); WBC,Urine 3 /hpf (0-5)
== END | disposition home or self-care (01) ==
LOC: SCTO 08:06
PROVIDERS: PCP Family Medicine; Referring Provider Internal Medicine Hematology & Oncology; Visit Provider Internal Medicine Hematology & Oncology
DX: C71.1 Malignant neoplasm of frontal lobe (principal)
CPT/HCPCS: 36415; 80053; 81001; 84550; 85025

== ENCOUNTER → 2025-07-23 | Outpatient (CLI) | payer MEDICAID, SELFPAY ==
[2025-07-23 07:51] LABS: Collection Type, Urine Clean Catch
[2025-07-23 08:14] LABS: Bilirubin,Urine Negative (Negative); Blood,Urine Negative (Negative); Clarity,Urine Clear (Clear/Hazy); Color,Urine Lt-Yellow (Lt Yel-Yel); Glucose, Urine Negative (Negative); Ketones,Urine Negative (Negative); Leukocyte Esterase,Urine Positive (Negative); Nitrite,Urine Negative (Negative); PH,Urine 6.0 (5.0-7.0); Protein,Urine Negative (Neg - Trace); RBC,Urine 1 /hpf (0-3); Specific Gravity,Urine 1.020 (1.001-1.035); Squamous Epithelial Cell,Urine < 1 /hpf (0-5); Urobilinogen,Urine Negative mg/dL (0.0-1.0); WBC,Urine 1 /hpf (0-5)
[2025-07-23 08:26] LABS: Basophils # (Auto) 0.0 Thou/mm3 (0.0-0.2); Basophils % (Auto) 1 % (0-2.5); Eosinophils # (Auto) 0.0 Thou/mm3 (0.0-0.5); Eosinophils % (Auto) 0 % (0-10); Hematocrit 46.0 % (41.0-53.0); Hemoglobin 15.4 g/dL (13.5-16.0); Immature Granulocytes Auto 0.57 Thou/mm3 (0.00-0.00); Lymphocytes # (Auto) 0.6 Thou/mm3 (1.0-4.8); Lymphocytes % (Auto) 9 % (10-50); Mean Corpuscular HGB Conc 33.5 g/dl (31.0-37.0); Mean Corpuscular Hemoglobin 31.2 pg (25.0-35.0); Mean Corpuscular Volume 93 fL (80-100); Monocytes # (Auto) 0.5 Thou/mm3 (0.0-0.8); Monocytes % (Auto) 6 % (0-12); Neutrophils # (Auto) 5.4 Thou/mm3 (1.8-7.7); Neutrophils % (Auto) 76 % (37-80); Nucleated Red Blood Cell # 0.04 Thou/mm3 (0.00-0.00); Nucleated Red Blood Cell % 1 /100 WBC (0); Platelet Count 172 Thou/mm3 (140-440); RDW Standard Deviation 48.5 fL (35.1-43.9); Red Blood Count 4.94 Miln/mm3 (4.50-5.90); White Blood Count 7.1 Thou/mm3 (3.8-10.6)
[2025-07-23 08:27] LABS: Alanine Aminotransferase 92 U/L (10-49); Albumin, Serum 3.6 gm/dL (3.5-5.0); Albumin/Globulin Ratio 1.9 (1.2-2.2); Alkaline Phosphatase 67 U/L (46-116); Anion Gap 8 (7-16); Aspartate Amino Transferase 28 U/L (0-34); BUN/Creatinine Ratio 20 Ratio (12-20); Bilirubin,Total 0.6 mg/dL (0.3-1.2); Blood Urea Nitrogen 14 mg/dL (9-23); Calcium 8.6 mg/dL (8.3-10.6); Calcium (Corrected) 8.9 mg/dL (8.5-10.1); Carbon Dioxide 25.9 mMol/L (20.0-31.0); Chloride 104 mMol/L (98-107); Creatinine (Component) 0.7 mg/dL (0.6-1.3); Globulin 1.9 gm/dL (2.3-3.5); Glucose 117 mg/dL (74-106); Osmolality,Calculated 277 (275-295); Potassium 4.3 mMol/L (3.4-5.1); Sodium 138 mMol/L (136-145); Total Protein 5.5 gm/dL (5.7-8.2); Uric Acid 3.0 mg/dL (3.7-9.2); eGFR > 60 See Note
== END | disposition home or self-care (01) ==
LOC: SCTO 07:23
PROVIDERS: PCP Family Medicine; Referring Provider Internal Medicine Hematology & Oncology; Visit Provider Internal Medicine Hematology & Oncology
DX: C71.1 Malignant neoplasm of frontal lobe (principal)
CPT/HCPCS: 36415; 80053; 81001; 84550; 85025

== ENCOUNTER 2025-07-24 10:22 | Outpatient (RCR) | payer MEDICAID, SELFPAY ==
--- NOTE | 2025-07-02 16:16 | CTCFLWUP_ITS ---
Patient: ELLIOTT CORBIN : 1975 Page 9 of 11 FOLLOW UP NOTE DATE OF SERVICE: 07/02/2025 NAME: ELLIOTT CORBIN ACCOUNT: [id number] : 1975 AGE: 50 INTERVAL HISTORY: Patient was seen at [facility]. Patient was seen in the emergency room in [place] and MRI was completed which showed tumor progression. Patient was given dexamethasone and started on 4 mg dexamethasone oral twice daily. Patient's headache improved a little bit but there is no improvement in the left-sided vision. Patient also have right facial pain secondary to shingles and left- sided weakness. MRI was reviewed at [facility] her recommendation was to stop Temodar and start on lomustine and bevacizumab Image Medications and Supplements - Tramadol - Causing severe constipation - Chemo pills - Steroids - Recommended to stop Review of Systems General: Negative for fever, chills, fatigue, muscle aches, or weight change. Gastrointestinal: Positive for severe constipation and right upper quadrant pain. Objective: Laboratory, Imaging, and Diagnostic Test Results - MRI (date not specified): - Tumor stable since October - Some inflammation noted towards the back ONCOLOGY HISTORY: DIAGNOSIS: Malignant neoplasm of frontal lobe (brain) [ICD10] C71.1 DATE OF DIAGNOSIS: 11/22/2024 STAGE/TNM: 1975 Study of the molecular features that [facility] indicates that this is most consistent with glioblastoma IDH wild-type WHO grade 4. Please see [facility] interpretation section of page 2 of pathology dated 10/01/2024 which is the second document in the mosaic for patient. 11/22/2024 There are postsurgical changes in the right middle cranial fossa from temporal craniotomy. Adjacent to the surgical cavity and more medial, there is fullness of the sulci with high TZ-FLAIR signal and subtle restricted diffusion involving the insular region, medial temporal lobe, and posteroinferior frontal lobe which is unchanged in appearance. In addition, there is subtle signal change involving the right periatrial white matter and hippocampal gyrus with probable extension into the right splenium of the corpus callosum which is also unchanged; however, slightly more conspicuous to the previous examination. There is no associated enhancement. Findings are likely related to non enhancing tumor. TREATMENT HISTORY: Care?Plan Start?Date Cycle Day Intent Bevacizumab?10?mg/kg?-?Met 07/02/202511 21 Palliative HISTORY OF PRESENT ILLNESS: 50-year-old male with a new diagnosis of GBM. Patient was diagnosed with GBM. Underwent craniotomy to remove large right frontotemporal mass. Patient was seen at by [facility] and started on concurrent chemoradiation. There was a delay to received Temodar. Patient have completed chemotherapy with radiation. 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 Tobacco?Pack?per?Day:?0 Tobacco?Use:?DENIES ETOH?Use:?DENIES Drug?Note:?DENIES Social History Note:?LIVES WITH , 2 CHILDREN AGES 24 AND 15 MEDICATIONS: 1. acetaminophen - 500 mg 2 tab As directed 2. Ativan - 1 mg 1 tab Daily 3. dexamethasone - 4 mg 1 tab 1 tab twice daily 4. dexamethasone - 4 mg 1 tab As directed 5. hydrocodone-acetaminophen - 5-325 mg 1 tab three times a day 6. levetiracetam - 500 mg 1 tab Twice a Day 7. lomustine - 100 mg 110 mg/m*2 213 mg every 42 days 8. memantine - 5 mg 2 tab twice a day 9. ondansetron HCl - 8 mg 1 tab every 8 hours as needed for nausea 10. Protonix - 40 mg 1 tab Daily 11. valACYclovir - 1 gram 1 tab Three times a day 12. zolpidem - 10 mg 1 tab Daily Medications Last Reconciled by Remedios Rosario MD on 07/02/2025 ALLERGIES: No Known Allergies REVIEW OF SYSTEMS: A complete 14-point review of systems was performed and is negative except as noted in interval history. PHYSICAL EXAMINATION: VITAL SIGNS: Temperature?98.1, B/P?126/72, Oxygen?Saturation?98% Weight?190?lbs (Change?since?06/14/25:?0?lbs) PAIN: 0 - No pain ECOG Performance Status: 2 - Symptomatic; ambulatory; capable of self-care; >50% of waking hrs. not in bed GENERAL APPEARANCE: Appears well, in no apparent distress, appropriately interactive. HEENT: Normocephalic, no temporal wasting, normal conjunctiva, no scleral icterus, normal hearing, lips without lesions, neck normal range of motion. CARDIOVASCULAR: Not assessed. PULMONARY: Normal respiratory effort, no respiratory distress or use of accessory muscles, speaking in full sentences, no tachypnea. EXTREMITIES: No pedal edema or cyanosis. SKIN: Normal skin appearance. NEUROLOGIC: Alert and oriented x4. PSHYCHIATRIC: Appropriate affect, mood normal, behavior normal, intact thought and speech. LABORATORY DATA: I have personally reviewed and interpreted each of the patient?s relevant lab tests, abnormal findings are below: Date 03/07/25 03/22/25 ??WHITE?BLOOD?COUNT?(Thou/mm3) 4.3 5.8 ??RED?BLOOD?COUNT?(Miln/mm3) 5.13 5.02 ??HEMOGLOBIN?(gm/dl) 15.5 15.1 ??HEMATOCRIT?(%) 43.7 43.6 ??PLATELET?COUNT?(Thou/mm3) 205 270 ??NEUTROPHILS?%,?AUTO?(%) 69 61 ??LYMPH?%,?AUTO?(%) 16 21 ??NEUTROPHILS,?AUTO?(Thou/mm3) 3.0 3.5 ??GLUCOSE,RANDOM?(mg/dL) 103 106 ??BLOOD?UREA?NITROGEN?(mg/dL) 12 9 ??CREATININE?(mg/dL) 0.80 0.90 ??SODIUM?(mmol/L) 139 137 ??POTASSIUM?(mmol/L) 3.7 3.8 ??CHLORIDE?(mmol/L) 106 103 ??CrCl?(CandG)?(ml/min) 115.24 102.75 ??AST/SGOT?(Unit/L) 18 16 ??ALT/SGPT?(Unit/L) 43 18 ??ALKALINE?PHOSPHATASE?(Unit/L) 98 95 ??BILIRUBIN,?TOTAL?(mg/dL) 0.7 0.6 ??PROTEIN?TOTAL?(gm/dl) 6.9 7.3 ??ALBUMIN,?SERUM?(gm/dl) 4.2 4.5 ??GLOBULIN?(gm/dl) 2.7 2.8 ??ALBUMIN/GLOBULIN?RATIO 1.6 1.6 ??CALCIUM,?SERUM?(mg/dL) 8.7 10.1 ??CALCIUM?SERUM?(CORRECTED)?(mg/dL) 8.7 10.1 ASSESSMENT/PLAN: GBM WHO grade 4 S/p resection S/p chemo RT followed by chemotherapy with the Temodar Reviewed MRI and shows progression Will start on lomustine as per [facility] recommendation-lomustine 90 mg/m? every 6 weeks and bevacizumab 10 mg/kg every 2 weeks Ordered to be started stat Will continue dexamethasone 4 mg twice daily Will start on Protonix 40 mg p.o. every morning Patient knows and is already taking steroids only with food he understand that steroids can cause ulcers and even stomach rupture Advised to continue Keppra Will start Ativan ORDERS: Order # Description [id number] Infusion 1 Hour [id number] Infusion 1 Hour [id number] Comprehensive Metabolic Panel + CBC with Auto Diff + CEA + Urinalysis, Automated with Microscopy [id number] Follow Up Appointment [id number] Infusion 1 Hour [id number] Infusion 1 Hour [id number] Comprehensive Metabolic Panel + CBC with Auto Diff + CEA + Urinalysis, Automated with Microscopy [id number] Follow Up Appointment [id number] Infusion 1 Hour [id number] Infusion 1 Hour [id number] Comprehensive Metabolic Panel + CBC with Auto Diff + CEA + Urinalysis, Automated with Microscopy [id number] Follow Up Appointment [id number] Infusion 1 Hour [id number] Infusion 1 Hour [id number] Comprehensive Metabolic Panel + CBC with Auto Diff + CEA + Urinalysis, Automated with Microscopy [id number] Follow Up Appointment [id number] Infusion 1 Hour [id number] Infusion 1 Hour [id number] Comprehensive Metabolic Panel + CBC with Auto Diff + CEA + Urinalysis, Automated with Microscopy [id number] Follow Up Appointment [id number] Infusion 1 Hour [id number] Infusion 1 Hour [id number] Comprehensive Metabolic Panel + CBC with Auto Diff + CEA + Urinalysis, Automated with Microscopy [id number] Follow Up Appointment RETURN TO CLINIC: I reviewed the diagnosis, prognosis, and recommended treatment/procedure options with the patient (and/or their legal product support sales representative), including the potential benefits, risks, side effects and alternative therapies. We also discussed the option of no treatment and the possibility of clinical trial participation, if applicable. All questions were addressed, and they demonstrated understanding. They provided informed consent to proceed with the proposed plan of care. BILLING AND COMPLIANCE: I reviewed external records from providers outside my specialty as summarized above. I spent a total of 50 minutes on this patient?s care on the day of their visit excluding time spent related to any billed procedures. This time includes time spent with the patient as well as time spent documenting in the medical record, reviewing patients records and tests, obtaining history, placing orders, communicating with other healthcare professionals, counseling the patient, family or caregiver, and/or care coordination for the diagnoses above. Electronically Signed by: Cal Patel MD T: 4:13 PM CC: PCP: No Primary/family, Physician Referring: Cal Patel This document was completed utilizing speech recognition software. Grammatical errors, random word insertions, pronoun errors, and incomplete sentences are an occasional consequence of this system due to software limitations, ambient noise, and hardware issues. Any formal questions or concerns about the content, text or information contained within the body of this dictation should be directly addressed to the provider for clarification.
[2025-07-18 16:07] LABS: Basophils # (Auto) 0.1 Thou/mm3 (0.0-0.2); Basophils % (Auto) 1 % (0-2.5); Eosinophils # (Auto) 0.0 Thou/mm3 (0.0-0.5); Eosinophils % (Auto) 0 % (0-10); Hematocrit 46.8 % (41.0-53.0); Hemoglobin 15.8 g/dL (13.5-16.0); Immature Granulocytes Auto 0.60 Thou/mm3 (0.00-0.00); Lymphocytes # (Auto) 0.6 Thou/mm3 (1.0-4.8); Lymphocytes % (Auto) 7 % (10-50); Mean Corpuscular HGB Conc 33.8 g/dl (31.0-37.0); Mean Corpuscular Hemoglobin 30.9 pg (25.0-35.0); Mean Corpuscular Volume 92 fL (80-100); Monocytes # (Auto) 0.6 Thou/mm3 (0.0-0.8); Monocytes % (Auto) 7 % (0-12); Neutrophils # (Auto) 7.1 Thou/mm3 (1.8-7.7); Neutrophils % (Auto) 79 % (37-80); Nucleated Red Blood Cell # 0.02 Thou/mm3 (0.00-0.00); Nucleated Red Blood Cell % 0 /100 WBC (0); Platelet Count 159 Thou/mm3 (140-440); RDW Standard Deviation 47.8 fL (35.1-43.9); Red Blood Count 5.11 Miln/mm3 (4.50-5.90); White Blood Count 9.0 Thou/mm3 (3.8-10.6)
[2025-07-18 16:26] LABS: Alanine Aminotransferase 91 U/L (10-49); Albumin, Serum 3.8 gm/dL (3.5-5.0); Albumin/Globulin Ratio 1.9 (1.2-2.2); Alkaline Phosphatase 71 U/L (46-116); Anion Gap 12 (7-16); Aspartate Amino Transferase 15 U/L (0-34); BUN/Creatinine Ratio 20 Ratio (12-20); Bilirubin,Total 0.5 mg/dL (0.3-1.2); Blood Urea Nitrogen 16 mg/dL (9-23); Calcium 8.5 mg/dL (8.3-10.6); Calcium (Corrected) 8.7 mg/dL (8.5-10.1); Carbon Dioxide 21.3 mMol/L (20.0-31.0); Chloride 108 mMol/L (98-107); Creatinine (Component) 0.8 mg/dL (0.6-1.3); Globulin 2.0 gm/dL (2.3-3.5); Glucose 154 mg/dL (74-106); Osmolality,Calculated 285 (275-295); Potassium 4.2 mMol/L (3.4-5.1); Sodium 141 mMol/L (136-145); Total Protein 5.8 gm/dL (5.7-8.2); eGFR > 60 See Note
--- NOTE | 2025-07-23 02:30 | CTCFLWUP_ITS ---
Patient: ELLIOTT CORBIN : 1975 Page 9 of 11 FOLLOW UP NOTE DATE OF SERVICE: 07/18/2025 NAME: ELLIOTT CORBIN ACCOUNT: [id number] : 1975 AGE: 50 INTERVAL HISTORY: Patient had progression of tumor in his GBM. Patient is started on lomustine and bevacizumab. He has tolerated bevacizumab well. He is having a lot of pain on his face which is burning and pressure-like. Patient has been taking dexamethasone. Image Medications and Supplements - Tramadol - Causing severe constipation - Chemo pills - Steroids - Recommended to stop Review of Systems General: Negative for fever, chills, fatigue, muscle aches, or weight change. Gastrointestinal: Positive for severe constipation and right upper quadrant pain. Objective: Laboratory, Imaging, and Diagnostic Test Results - MRI (date not specified): - Tumor stable since October - Some inflammation noted towards the back ONCOLOGY HISTORY:?[facility] Hx? DIAGNOSIS: Malignant neoplasm of frontal lobe (brain) [ICD10] C71.1 DATE OF DIAGNOSIS: 11/22/2024 STAGE/TNM: 1975 Study of the molecular features that [facility] indicates that this is most consistent with glioblastoma IDH wild-type WHO grade 4. Please see [facility] interpretation section of page 2 of pathology dated 10/01/2024 which is the second document in the mosaic for patient. 11/22/2024 There are postsurgical changes in the right middle cranial fossa from temporal craniotomy. Adjacent to the surgical cavity and more medial, there is fullness of the sulci with high TZ-FLAIR signal and subtle restricted diffusion involving the insular region, medial temporal lobe, and posteroinferior frontal lobe which is unchanged in appearance. In addition, there is subtle signal change involving the right periatrial white matter and hippocampal gyrus with probable extension into the right splenium of the corpus callosum which is also unchanged; however, slightly more conspicuous to the previous examination. There is no associated enhancement. Findings are likely related to non enhancing tumor. TREATMENT HISTORY: Care?Plan Start?Date Cycle Day Intent Bevacizumab?10?mg/kg?-?Met 07/10/2025 1 28 Palliative HISTORY OF PRESENT ILLNESS: 50-year-old male with a new diagnosis of GBM. Patient was diagnosed with GBM. Underwent craniotomy to remove large right frontotemporal mass. Patient was seen at by [facility] and started on concurrent chemoradiation. There was a delay to received Temodar. Patient have completed chemotherapy with radiation. 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 Tobacco?Pack?per?Day:?0 Tobacco?Use:?DENIES ETOH?Use:?DENIES Drug?Note:?DENIES Social History Note:?LIVES WITH , 2 CHILDREN AGES 24 AND 15 MEDICATIONS: 1. acetaminophen - 500 mg 2 tab As directed 2. Ativan - 1 mg 1 tab Daily 3. dexamethasone - 4 mg 1 tab 1 tab twice daily 4. dexamethasone - 4 mg 1 tab As directed 5. Gleostine - 100 mg 2 Capsule once 6. levetiracetam - 500 mg 1 tab Twice a Day 7. lomustine - 100 mg 110 mg/m*2 213 mg every 42 days 8. lomustine - 100 mg 2 Capsule As directed 9. memantine - 5 mg 2 tab twice a day 10. ondansetron - 16 mg 1 tab every 8 hrs as needed for nausea 11. ondansetron HCl - 8 mg 1 tab every 8 hours as needed for nausea 12. oxycodone - 5 mg 1 tab 1 tab every 4 hrs as needed for severe pain 13. Protonix - 40 mg 1 tab Daily 14. valACYclovir - 1 gram 1 tab Three times a day 15. zolpidem - 10 mg 1 tab Daily?Palabra Meds? Medications Last Reconciled by Remedios Rosario MD on 07/18/2025 ALLERGIES: No Known Allergies REVIEW OF SYSTEMS: A complete 14-point review of systems was performed and is negative except as noted in interval history. PHYSICAL EXAMINATION:?[facility] PE? VITAL SIGNS: Temperature?98.8, B/P?118/80, Oxygen?Saturation?95% Weight?193?lbs (Change?since?9/16/25:?-0.8?lbs) PAIN: 0 - No pain GENERAL APPEARANCE: Appears well, in no apparent distress, appropriately interactive. HEENT: Normocephalic, no temporal wasting, normal conjunctiva, no scleral icterus, normal hearing, lips without lesions, neck normal range of motion. CARDIOVASCULAR: Not assessed. PULMONARY: Normal respiratory effort, no respiratory distress or use of accessory muscles, speaking in full sentences, no tachypnea. EXTREMITIES: No pedal edema or cyanosis. SKIN: Normal skin appearance. NEUROLOGIC: Alert and oriented x4. PSHYCHIATRIC: Appropriate affect, mood normal, behavior normal, intact thought and speech. LABORATORY DATA: I have personally reviewed and interpreted each of the patient?s relevant lab tests, abnormal findings are below: Date 07/09/25 07/18/25 ??WHITE?BLOOD?COUNT?(Thou/mm3) 14.3?H 9.0 ??RED?BLOOD?COUNT?(Miln/mm3) 5.05 5.11 ??HEMOGLOBIN?(gm/dl) 15.8 15.8 ??HEMATOCRIT?(%) 46.2 46.8 ??PLATELET?COUNT?(Thou/mm3) 197 159 ??NEUTROPHILS?%,?AUTO?(%) 84?H 79 ??LYMPH?%,?AUTO?(%) 4?L 7?L ??NEUTROPHILS,?AUTO?(Thou/mm3) 12.0?H 7.1 ??GLUCOSE,RANDOM?(mg/dL) 182?H 154?H ??BLOOD?UREA?NITROGEN?(mg/dL) 17 16 ??CREATININE?(mg/dL) 0.80 0.80 ??SODIUM?(mmol/L) 137 141 ??POTASSIUM?(mmol/L) 4.4 4.2 ??CHLORIDE?(mmol/L) 104 108?H ??CrCl?(CandG)?(ml/min) 114.00 114.87 ??AST/SGOT?(Unit/L) 159?H 15 ??ALT/SGPT?(Unit/L) 543?HH 91?H ??ALKALINE?PHOSPHATASE?(Unit/L) 90 71 ??BILIRUBIN,?TOTAL?(mg/dL) 0.6 0.5 ??PROTEIN?TOTAL?(gm/dl) 5.7 5.8 ??ALBUMIN,?SERUM?(gm/dl) 3.7 3.8 ??GLOBULIN?(gm/dl) 2.0?L 2.0?L ??ALBUMIN/GLOBULIN?RATIO 1.9 1.9 ??CALCIUM,?SERUM?(mg/dL) 8.7 8.5 ??CALCIUM?SERUM?(CORRECTED)?(mg/dL) 8.9 8.7 ASSESSMENT/PLAN:?Mike Paetl Assessment/Plan? GBM WHO grade 4 S/p resection S/p chemo RT followed by chemotherapy with the Temodar Reviewed MRI and shows progression Will start on lomustine as per [facility] recommendation-lomustine 90 mg/m? every 6 weeks and bevacizumab 10 mg/kg every 2 weeks Ordered to be started stat Will continue dexamethasone 4 mg twice daily Will start on Protonix 40 mg p.o. every morning Patient knows and is already taking steroids only with food he understand that steroids can cause ulcers and even stomach rupture Advised to continue Keppra Patient was given opiate pain medication but unfortunately was not felt by pharmacist Reduced dose was reordered I will add morphine if patient have persistent pain Will continue chemotherapy with lomustine and bevacizumab\ Labs reviewed and are stable Advised patient to take lomustine Patient may need support of Neupogen if his cell counts drop Will continue monitoring cell counts every week Overall prognosis poor ORDERS: Order # Description [id number] Infusion 1 Hour [id number] Comprehensive Metabolic Panel + CBC with Auto Diff + CEA + Urinalysis, Automated with Microscopy [id number] Follow Up Appointment [id number] Infusion 1 Hour [id number] Infusion 1 Hour [id number] Comprehensive Metabolic Panel + CBC with Auto Diff + CEA + Urinalysis, Automated with Microscopy [id number] Follow Up Appointment [id number] Infusion 1 Hour [id number] Infusion 1 Hour [id number] Comprehensive Metabolic Panel + CBC with Auto Diff + CEA + Urinalysis, Automated with Microscopy [id number] Follow Up Appointment [id number] Infusion 1 Hour [id number] Infusion 1 Hour [id number] Comprehensive Metabolic Panel + CBC with Auto Diff + CEA + Urinalysis, Automated with Microscopy [id number] Follow Up Appointment [id number] Infusion 1 Hour [id number] Infusion 1 Hour [id number] Comprehensive Metabolic Panel + CBC with Auto Diff + CEA + Urinalysis, Automated with Microscopy [id number] Follow Up Appointment [id number] Infusion 1 Hour [id number] Infusion 1 Hour [id number] Comprehensive Metabolic Panel + CBC with Auto Diff + CEA + Urinalysis, Automated with Microscopy [id number] Follow Up Appointment RETURN TO CLINIC: I reviewed the diagnosis, prognosis, and recommended treatment/procedure options with the patient (and/or their legal indirect sales representative), including the potential benefits, risks, side effects and alternative therapies. We also discussed the option of no treatment and the possibility of clinical trial participation, if applicable. All questions were addressed, and they demonstrated understanding. They provided informed consent to proceed with the proposed plan of care. BILLING AND COMPLIANCE: I reviewed external records from providers outside my specialty as summarized above. I spent a total of 50 minutes on this patient?s care on the day of their visit excluding time spent related to any billed procedures. This time includes time spent with the patient as well as time spent documenting in the medical record, reviewing patients records and tests, obtaining history, placing orders, communicating with other healthcare professionals, counseling the patient, family or caregiver, and/or care coordination for the diagnoses above. Electronically Signed by: Cal Patel MD T: 2:28 AM CC: PCP: Cal Patel Referring: Cal Patel This document was completed utilizing speech recognition software. Grammatical errors, random word insertions, pronoun errors, and incomplete sentences are an occasional consequence of this system due to software limitations, ambient noise, and hardware issues. Any formal questions or concerns about the content, text or information contained within the body of this dictation should be directly addressed to the provider for clarification.
== END 2025-07-24 23:59 | disposition home or self-care (01) ==
LOC: SCTC 10:22
PROVIDERS: PCP Internal Medicine; Referring Provider Internal Medicine Hematology & Oncology; Visit Provider Internal Medicine Hematology & Oncology
DX: Z51.11 Encounter for antineoplastic chemotherapy (principal); C71.8 Malignant neoplasm of overlapping sites of brain
CPT/HCPCS: 36415; 80053; 85025; 96413; 96415; 99212; J3490; Q5107; G0463

== ENCOUNTER → 2025-08-06 | Outpatient (CLI) | payer MEDICAID, SELFPAY ==
[2025-08-06 08:15] LABS: Collection Type, Urine Clean Catch
[2025-08-06 08:41] LABS: Basophils # (Auto) 0.1 Thou/mm3 (0.0-0.2); Basophils % (Auto) 1 % (0-2.5); Eosinophils # (Auto) 0.0 Thou/mm3 (0.0-0.5); Eosinophils % (Auto) 0 % (0-10); Hematocrit 45.3 % (41.0-53.0); Hemoglobin 15.5 g/dL (13.5-16.0); Immature Granulocytes Auto 0.88 Thou/mm3 (0.00-0.00); Lymphocytes # (Auto) 0.8 Thou/mm3 (1.0-4.8); Lymphocytes % (Auto) 11 % (10-50); Mean Corpuscular HGB Conc 34.2 g/dl (31.0-37.0); Mean Corpuscular Hemoglobin 31.6 pg (25.0-35.0); Mean Corpuscular Volume 92 fL (80-100); Monocytes # (Auto) 0.5 Thou/mm3 (0.0-0.8); Monocytes % (Auto) 7 % (0-12); Neutrophils # (Auto) 5.1 Thou/mm3 (1.8-7.7); Neutrophils % (Auto) 69 % (37-80); Nucleated Red Blood Cell # 0.02 Thou/mm3 (0.00-0.00); Nucleated Red Blood Cell % 0 /100 WBC (0); Platelet Count 143 Thou/mm3 (140-440); RDW Standard Deviation 47.9 fL (35.1-43.9); Red Blood Count 4.91 Miln/mm3 (4.50-5.90); White Blood Count 7.4 Thou/mm3 (3.8-10.6)
[2025-08-06 08:50] LABS: Alanine Aminotransferase 48 U/L (10-49); Albumin, Serum 4.2 gm/dL (3.5-5.0); Albumin/Globulin Ratio 1.9 (1.2-2.2); Alkaline Phosphatase 83 U/L (46-116); Anion Gap 9 (7-16); Aspartate Amino Transferase 13 U/L (0-34); BUN/Creatinine Ratio 18 Ratio (12-20); Bilirubin,Total 0.6 mg/dL (0.3-1.2); Blood Urea Nitrogen 16 mg/dL (9-23); Calcium 9.2 mg/dL (8.3-10.6); Calcium (Corrected) 9.2 mg/dL (8.5-10.1); Carbon Dioxide 25.7 mMol/L (20.0-31.0); Chloride 103 mMol/L (98-107); Creatinine (Component) 0.9 mg/dL (0.6-1.3); Globulin 2.2 gm/dL (2.3-3.5); Glucose 96 mg/dL (74-106); Osmolality,Calculated 276 (275-295); Potassium 3.9 mMol/L (3.4-5.1); Sodium 138 mMol/L (136-145); Total Protein 6.4 gm/dL (5.7-8.2); eGFR > 60 See Note
[2025-08-06 08:52] LABS: Bilirubin,Urine Negative (Negative); Blood,Urine Negative (Negative); Clarity,Urine Clear (Clear/Hazy); Color,Urine Lt-Yellow (Lt Yel-Yel); Glucose, Urine Negative (Negative); Ketones,Urine Negative (Negative); Leukocyte Esterase,Urine Negative (Negative); Nitrite,Urine Negative (Negative); PH,Urine 5.5 (5.0-7.0); Protein,Urine Negative (Neg - Trace); RBC,Urine 1 /hpf (0-3); Specific Gravity,Urine 1.021 (1.001-1.035); Squamous Epithelial Cell,Urine < 1 /hpf (0-5); Urobilinogen,Urine Negative mg/dL (0.0-1.0); WBC,Urine < 1 /hpf (0-5)
[2025-08-06 08:53] LABS: Sperm,Urine Present
[2025-08-06 13:44] LABS: Path Review Blood Smear Sent to Pathologist
== END | disposition home or self-care (01) ==
PROVIDERS: PCP Internal Medicine Hematology & Oncology; Referring Provider Internal Medicine Hematology & Oncology; Visit Provider Internal Medicine Hematology & Oncology
DX: C71.1 Malignant neoplasm of frontal lobe (principal)
CPT/HCPCS: 36415; 80053; 81001; 85025

== ENCOUNTER → 2025-08-20 | Outpatient (CLI) | payer MEDICAID, SELFPAY ==
[2025-08-20 08:40] LABS: Collection Type, Urine Clean Catch
[2025-08-20 09:15] LABS: Basophils # (Auto) 0.0 Thou/mm3 (0.0-0.2); Basophils % (Auto) 1 % (0-2.5); Eosinophils # (Auto) 0.0 Thou/mm3 (0.0-0.5); Eosinophils % (Auto) 1 % (0-10); Hematocrit 45.7 % (41.0-53.0); Hemoglobin 15.1 g/dL (13.5-16.0); Immature Granulocytes Auto 0.26 Thou/mm3 (0.00-0.00); Lymphocytes # (Auto) 0.8 Thou/mm3 (1.0-4.8); Lymphocytes % (Auto) 25 % (10-50); Mean Corpuscular HGB Conc 33.0 g/dl (31.0-37.0); Mean Corpuscular Hemoglobin 31.8 pg (25.0-35.0); Mean Corpuscular Volume 96 fL (80-100); Monocytes # (Auto) 0.3 Thou/mm3 (0.0-0.8); Monocytes % (Auto) 8 % (0-12); Neutrophils # (Auto) 2.0 Thou/mm3 (1.8-7.7); Neutrophils % (Auto) 58 % (37-80); Nucleated Red Blood Cell # 0.00 Thou/mm3 (0.00-0.00); Nucleated Red Blood Cell % 0 /100 WBC (0); Platelet Count 167 Thou/mm3 (140-440); RDW Standard Deviation 50.4 fL (35.1-43.9); Red Blood Count 4.75 Miln/mm3 (4.50-5.90); White Blood Count 3.4 Thou/mm3 (3.8-10.6)
[2025-08-20 09:16] LABS: Alanine Aminotransferase 59 U/L (10-49); Albumin, Serum 4.3 gm/dL (3.5-5.0); Albumin/Globulin Ratio 2.0 (1.2-2.2); Alkaline Phosphatase 75 U/L (46-116); Anion Gap 9 (7-16); Aspartate Amino Transferase 19 U/L (0-34); BUN/Creatinine Ratio 18 Ratio (12-20); Bilirubin,Total 0.6 mg/dL (0.3-1.2); Blood Urea Nitrogen 14 mg/dL (9-23); Calcium 9.1 mg/dL (8.3-10.6); Calcium (Corrected) 9.1 mg/dL (8.5-10.1); Carbon Dioxide 26.7 mMol/L (20.0-31.0); Chloride 105 mMol/L (98-107); Creatinine (Component) 0.8 mg/dL (0.6-1.3); Globulin 2.1 gm/dL (2.3-3.5); Glucose 103 mg/dL (74-106); Osmolality,Calculated 281 (275-295); Potassium 4.2 mMol/L (3.4-5.1); Sodium 141 mMol/L (136-145); Total Protein 6.4 gm/dL (5.7-8.2); eGFR > 60 See Note
[2025-08-20 09:17] LABS: Bacteria,Urine Rare; Bilirubin,Urine Negative (Negative); Blood,Urine Negative (Negative); Clarity,Urine Clear (Clear/Hazy); Color,Urine Lt-Yellow (Lt Yel-Yel); Glucose, Urine Negative (Negative); Ketones,Urine Negative (Negative); Leukocyte Esterase,Urine Negative (Negative); Nitrite,Urine Negative (Negative); PH,Urine 5.5 (5.0-7.0); Protein,Urine Negative (Neg - Trace); RBC,Urine 1 /hpf (0-3); Specific Gravity,Urine 1.015 (1.001-1.035); Squamous Epithelial Cell,Urine < 1 /hpf (0-5); Urobilinogen,Urine Negative mg/dL (0.0-1.0); WBC,Urine 1 /hpf (0-5)
[2025-08-20 09:23] LABS: Carcinoembryonic Antigen 2.2 ng/mL (0.0-5.0)
== END | disposition home or self-care (01) ==
LOC: SCTO 06:52
PROVIDERS: PCP Family Medicine; Referring Provider Internal Medicine Hematology & Oncology; Visit Provider Internal Medicine Hematology & Oncology
DX: C71.1 Malignant neoplasm of frontal lobe (principal)
CPT/HCPCS: 36415; 80053; 81001; 82378; 85025

== ENCOUNTER 2025-09-01 08:41 | Emergency (ER) | payer MEDICAID, SELFPAY ==
[2025-09-01] VITALS (9 sets, daily range): BP systolic 118–149; BP diastolic 70–97; PULSE 52–68; RESP 12–21; TEMP 36.6–37.2; O2SAT 95–99; BMI 34.7
--- NOTE | 2025-09-01 | XR_ITS ---
Examination: MRI of brain without intravenous contrast. MRI brain with intravenous contrast. Date and time of exam: September 01, 2025, 12:40 p.m. INDICATIONS: Severe headaches today, history of brain tumor surgery September 2024 Technique: Multiple axial and sagittal images of the brain to been obtained. Siemens high-resolution 1.52 Toyin short bore scanner utilized. Sagittal sections, T1 weighted images, TR 500, TE 14, are performed. Axial sections proton-density and T2-weighted images have been obtained. Inversion recovery axial images, TR 9260, TE 111, TR 2500. Diffusion weighted images, axial sections, TR 4800, TE 128, B value 1000. Axial sections, ADC map, TR 4800, TE 128. Axial and coronal images were also obtained post 19 cc gadolinium administered intravenously. Findings:: Enlargement of the sella turcica is not present. The optic chiasm and infundibular stalk are not remarkable. There is no localized enlargement of the medulla or viet. Fourth ventricle and cerebellar tonsils appear normal in position. No subacute area of hemorrhage density is seen. Fourth ventricle is midline. Large area of encephalomalacia in the right temporal lobe Foci of restricted diffusion in the right posterior corpus callosum and right frontal lobe adjacent to the frontal horn with matching ADC deficit, however these areas show enhancement on the postcontrast study suspicious for residual or new tumor Also subtle enhancement in the right temporal lobe image 11 Impression: Large area of encephalomalacia in the right temporal lobe Foci of restricted diffusion in the posterior right corpus callosum and right frontal lobe with signal deficit on the ADC map, however these areas show enhancement on the postcontrast images which is quite suspicious for recurrent or new tumor Recommend neurology consultation and correlation with clinical findings with the MRI findings above
--- NOTE | 2025-09-01 08:55 | EDNOTE_ITS ---
ED Headache RME/HPI General Chief Complaint: Headache Stated Complaint: HEADACHE Time Seen by Provider: 09/01/25 08:54 Arrival date/time: 09/01/25 08:41 RME / HPI RME / HPI Narrative: See [facility] for Dr. Flores's HPI Documentation. Related Data Previous Rx's ?Medication ?Instructions ?Recorded pantoprazole 40 mg tablet,delayed 40 mg PO QDAY #20 ta bs 02/23/25 release (Protonix) Allergies Allergy/AdvReac Type Severity Reaction Status Date / Time No Known Allergies Allergy Verified 09/01/25 08:45 Review of Systems Review of Systems Systems Reviewed: All systems reviewed, normal except as documented Past Medical History Past Medical History CARDIAC: Positive Hypertension Social History SMOKING STATUS: Never smoker SUBSTANCE USE: does not use ALCOHOL: Never ED Exam Narrative Physical exam: See [facility] for Dr. Flores's HPI Documentation. Course Quality Measures none Orders Category Date Time Status MRI Screening NOW Care 09/01/25 10:20 Active Saline [Insert IV] NOW Care 09/01/25 10:[address] head/brain wo con Stat Exams 09/01/25 08:56 Completed MR head/brain wo/w con Stat Exams 09/01/25 00:00 Taken Bilirubin,Direct Stat Lab 09/01/25 10:50 Completed CBC Stat Lab 09/01/25 10:50 Completed CMP [Comprehensive Metabolic Panel] Stat Lab 09/01/25 10:50 Completed Magnesium Stat Lab 09/01/25 10:50 Completed PT [Prothrombin Time with INR] Stat Lab 09/01/25 10:50 Completed PTT [Partial Thromboplastin Time] Stat Lab 09/01/25 10:50 Completed HYDROmorphone INJ [Dilaudid Inj] Med 09/01/25 08:55 Discontinued 1 mg IM X1 ONE HYDROmorphone INJ [Dilaudid Inj] Med 09/01/25 10:19 Discontinued 1 mg IVP X1 ONE Ibuprofen Tab [Motrin Tab] Med 09/01/25 08:55 Discontinued 800 mg PO X1 ONE Ketorolac Inj [Toradol Inj] Med 09/01/25 16:54 Discontinued 30 mg IVP X1 ONE Morphine* Inj Med 09/01/25 16:54 Discontinued 4 mg IV X1 ONE Ondansetron Odt [Zofran Odt] Med 09/01/25 08:55 Discontinued 4 mg PO X1 ONE Sodium Chloride 0.9% 1000 ml [Ns] 1,000 ml Med 09/01/25 10:19 Discontinued IV 999 mls/hr Vital Signs Vital signs: Vital Signs Temperature 98.9 F 09/01/25 09:02 Pulse Rate 57 L 09/01/25 09:02 Respiratory Rate 16 09/01/25 09:02 Blood Pressure 149/97 H 09/01/25 09:02 Pulse Oximetry (%) 95 09/01/25 09:02 Oxygen Delivery Method Room Air 09/01/25 09:02 Headache MDM Narrative MDM Narrative:: This section includes all my notes and documentations, including HPI, PE, and ED course. Max Flores MD HPI: 50-year-old male here with severe headache since last night. Concerned due to history of brain cancer and craniotomy. Slight nausea. No vomiting. No photophobia and phonophobia. The pain is behind the eyes and on top of his head. No speech or visual impairment. No loss of power in the arms or legs. No fever or chills. No neck pain or stiffness. No other complaints. ROS: All negative except as documented in HPI. Physical Exam: General: Alert and oriented. Appears uncomfortable. Eyes: Conjunctivae and lids clear. EOMI. PERRL. ENT: No signs of head trauma. Neck: Supple. No tenderness. Heart: RRR. Lungs: No respiratory distress. Good air movement. No rhonchi, wheezing, rales. Chest: No tenderness. Abdomen: Soft and nontender. Normal bowel sounds. No distension. No rebound or guarding. Back: No tenderness. Skin: Warm and dry. Neuro: Alert and oriented X 3. Cranial Nerves II-XII grossly intact. No peripheral motor deficits. Musculoskeletal: All major joints and bones are not tender with no limited ROM. I reviewed all diagnostic test results: My review of the head CT report is: Large right temporal craniotomy defect; Large area of encephalomalacia in the right temporal lobe; Subtle masslike area in the medial right temporal lobe 21 x 22 mm which may represent normal residual temporal lobe; Brain MRI follow-up postcontrast would be strongly preferable in excluding residual or recurrent tumor. Blood tests unremarkable. Covid/Influenza Brain MRI report is pending. At this point, diagnoses include: Severe headache Treatment here included: IVF Zofran 4 mg IV Toradol 30 mg IV Morphine 4 mg IV Some improvement noted. At 6 PM on 09/01/2025, the care of the patient was transferred to Dr. Rothman. Max Flores MD Patient data External records reviewed:: [facility] previous records Clinical information provided by:: patient Social determinants that could affect healthcare access:: none Patient has the following chronic illnesses:: Hypertension How is presenting disease/condition affected by chronic disease/condition?: exacerbated by Evaluation data The following diagnostics were reviewed and interpreted by me:: lab results and radiology exam(s) Lab and/or radiology exams considered but not ordered:: none Interpretation Summary: I reviewed all diagnostic test results: My review of the head CT report is: Large right temporal craniotomy defect; Large area of encephalomalacia in the right temporal lobe; Subtle masslike area in the medial right temporal lobe 21 x 22 mm which may represent normal residual temporal lobe; Brain MRI follow-up postcontrast would be strongly preferable in excluding residual or recurrent tumor. Blood tests unremarkable. Covid/Influenza Brain MRI report is pending. Medications / Prescriptions Medications or Prescriptions considered but not ordered:: none Medication administrations:: Medication Administration History Discontinued Medications Hydromorphone HCl (Hydromorphone Inj 2 Mg/Ml Vial) 1 mg IM X1 ONE Stop: 09/01/25 08:56 Last Admin: 09/01/25 11:12 Dose: Not Given Documented By: FLORENCIO Non-Admin Reason: Discontinued Hydromorphone HCl (Hydromorphone Inj 2 Mg/Ml Vial) 1 mg IVP X1 ONE Stop: 09/01/25 10:20 Last Admin: 09/01/25 11:11 Dose: 1 mg Documented By: FLORENCIO Sodium Chloride (Ns) 1,000 mls @ 999 mls/hr IV .Q1H1M ONE Stop: 09/01/25 11:19 Last Infusion: 09/01/25 12:59 Dose: Infused Documented By: Admin: 09/01/25 11:11 Dose: 999 mls/hr Documented By: VG Ibuprofen (Ibuprofen Tab 400 Mg Tablet) 800 mg PO X1 ONE Stop: 09/01/25 08:56 Last Admin: 09/01/25 09:22 Dose: 800 mg Documented By: MF Ketorolac Tromethamine (Ketorolac Inj 30 Mg/Ml Vial) 30 mg IVP X1 ONE Stop: 09/01/25 16:55 Last Admin: 09/01/25 17:02 Dose: 30 mg Documented By: EF Morphine Sulfate (Morphine Sulf Inj 4 Mg/Ml Vial) 4 mg IV X1 ONE Stop: 09/01/25 16:55 Last Admin: 09/01/25 17:02 Dose: 4 mg Documented By: EF Ondansetron HCl (Ondansetron Odt 4 Mg Tabrap) 4 mg PO X1 ONE; Protocol Stop: 09/01/25 08:56 Last Admin: 09/01/25 09:22 Dose: 4 mg Documented By: GELY Treatment here included: IVF Zofran 4 mg IV Toradol 30 mg IV Morphine 4 mg IV Consultations Consultation(s) initiated? (list below): No Diagnosis Differential diagnosis headache: migraine, tension headache, subarachnoid hemorrhage and other Most likely diagnosis given after review of the tests above:: Complete diagnostic tests are pending. Admission Indicated Admission indicated?: not indicated Explain why admission is indicated or not indicated:: Complete diagnostic tests are pending. Admission Request Was there a request for admission?: No Disposition Plan Disposition Plan: other (specify) (At 6 PM on 09/01/2025, the care of the patient was transferred to Dr. Rothman.) Discharge Plan Prescriptions/Referrals Prescriptions/Med Rec: No Action pantoprazole [Protonix] 40 mg tablet,delayed release (DR/EC) 40 mg PO QDAY Qty: 20 0RF Referrals: Moise Boudreaux MD [Primary Care Provider, Family Practice] - In 1 week Problem List Clinical Impression: Headache Patient/Caregiver Discharge Instructions Print Language: [place]
--- NOTE | 2025-09-01 08:56 | XR_ITS ---
Examination: CT brain head without contrast. 2-D sagittal coronal reconstructions Date and time of exam: September 01, 2025, 0936 hours, comparison September 29, 2024 INDICATIONS: Onset headaches beginning yesterday, history brain cancer diagnosis September 2024, undergoing chemotherapy CTDI: vol (mGy): 53.8 DLP: (mGycm): 1092 Technique: Multiple CT axial sections of the brain have been obtained, 5 mm slice thickness. Contrast has not been administered. 2-D sagittal, coronal reconstructions have been obtained Low dose protocols were performed. One or more of the following dose reduction techniques were used; automated exposure control, adjustment of the mA and/or KV according to patient size, use of iterative reconstruction technique. Findings: Large right temporal craniotomy defect Large area of encephalomalacia in the right temporal lobe Axial image 29 demonstrates a masslike area in the medial temporal lobe, 21 x 22 mm which may represent normal residual temporal lobe No shift of the frontal horns or fourth ventricle The ventricles are nonenlarged No acute hemorrhage either intra or extra-axial IMPRESSION: Large right temporal craniotomy defect Large area of encephalomalacia in the right temporal lobe Subtle masslike area in the medial right temporal lobe 21 x 22 mm which may represent normal residual temporal lobe, clinical correlation advised Brain MRI follow-up postcontrast would be strongly preferable in excluding residual or recurrent tumor
[2025-09-01] MEDS: IBUPROFEN TAB 400 MG TABLET 800 MG PO (09:22)
[2025-09-01] MEDS: ONDANSETRON ODT 4 MG TABRAP PO (09:22)
[2025-09-01] MEDS: SODIUM CHLORIDE 0.9% 1000 ML 1,000 ML 999 ML IV (11:11)
[2025-09-01] MEDS: HYDROmorphone INJ 2 MG/ML VIAL 1 MG IVP (11:11)
[2025-09-01 11:24] LABS: Alanine Aminotransferase 36 U/L (10-49); Albumin, Serum 4.5 gm/dL (3.5-5.0); Albumin/Globulin Ratio 2.3 (1.2-2.2); Alkaline Phosphatase 81 U/L (46-116); Anion Gap 10 (7-16); Aspartate Amino Transferase 18 U/L (0-34); BUN/Creatinine Ratio 19 Ratio (12-20); Bilirubin,Direct 0.2 mg/dL (0.0-0.3); Bilirubin,Total 0.6 mg/dL (0.3-1.2); Blood Urea Nitrogen 15 mg/dL (9-23); Calcium 9.3 mg/dL (8.3-10.6); Calcium (Corrected) 9.3 mg/dL (8.5-10.1); Carbon Dioxide 25.8 mMol/L (20.0-31.0); Chloride 105 mMol/L (98-107); Creatinine (Component) 0.8 mg/dL (0.6-1.3); Estimated Creatinine Clearance 123.4 mL/min (>60); Globulin 2.0 gm/dL (2.3-3.5); Glucose 97 mg/dL (74-106); Magnesium 2.2 mg/dL (1.6-2.6); Osmolality,Calculated 282 (275-295); Potassium 3.8 mMol/L (3.4-5.1); Sodium 141 mMol/L (136-145); Total Protein 6.5 gm/dL (5.7-8.2); eGFR > 60 See Note
[2025-09-01 11:37] LABS: INR 0.9 (0.9-1.3); Partial Thromboplastin Time 23.9 Seconds (22.0-36.0); Prothrombin Time 9.7 Seconds (9.0-12.2)
[2025-09-01 11:45] LABS: Basophils # (Auto) 0.1 Thou/mm3 (0.0-0.2); Basophils % (Auto) 2 % (0-2.5); Eosinophils # (Auto) 0.0 Thou/mm3 (0.0-0.5); Eosinophils % (Auto) 0 % (0-10); Hematocrit 42.5 % (41.0-53.0); Hemoglobin 14.5 g/dL (13.5-16.0); Immature Granulocytes Auto 0.52 Thou/mm3 (0.00-0.00); Lymphocytes # (Auto) 1.1 Thou/mm3 (1.0-4.8); Lymphocytes % (Auto) 15 % (10-50); Mean Corpuscular HGB Conc 34.1 g/dl (31.0-37.0); Mean Corpuscular Hemoglobin 31.3 pg (25.0-35.0); Mean Corpuscular Volume 92 fL (80-100); Monocytes # (Auto) 0.6 Thou/mm3 (0.0-0.8); Monocytes % (Auto) 9 % (0-12); Neutrophils # (Auto) 4.7 Thou/mm3 (1.8-7.7); Neutrophils % (Auto) 67 % (37-80); Nucleated Red Blood Cell # 0.02 Thou/mm3 (0.00-0.00); Nucleated Red Blood Cell % 0 /100 WBC (0); Platelet Count 204 Thou/mm3 (140-440); RDW Standard Deviation 50.0 fL (35.1-43.9); Red Blood Count 4.63 Miln/mm3 (4.50-5.90); White Blood Count 7.0 Thou/mm3 (3.8-10.6)
--- NOTE | 2025-09-01 12:45 | PC.NURSE ---
PT TAKEN TO MRI
[2025-09-01] MEDS: KETOROLAC INJ 30 MG/ML VIAL IVP (17:02)
[2025-09-01] MEDS: MORPHINE SULF INJ 4 MG/ML VIAL IV (17:02)
--- NOTE | 2025-09-01 18:18 | EDNOTE_ITS ---
Emergency Room Addendum Addendum Narrative: 1800: Care assumed from Dr. Flores (emergency physician). Past medical, surgical, social and family history reviewed. Vitals and home medications reviewed. Results and treatment plan discussed. I will assume the care of the patient at this time and will follow the patient, pending MRI of the brain. The following addendum documentation note is intended to reflect any pending information, findings, or radiology results not included in the patient?s initial chart by the previous shift scribe. RADIOLOGY Brain MRI: Findings: Enlargement of the sella turcica is not present. The optic chiasm and infundibular stalk are not remarkable. There is no localized enlargement of the medulla or viet. Fourth ventricle and cerebellar tonsils appear normal in position. No subacute area of hemorrhage density is seen. Fourth ventricle is midline. Large area of encephalomalacia in the right temporal lobe Foci of restricted diffusion in the right posterior corpus callosum and right frontal lobe adjacent to the frontal horn with matching ADC deficit, however these areas show enhancement on the postcontrast study suspicious for residual or new tumor Also subtle enhancement in the right temporal lobe image 11 Impression: Large area of encephalomalacia in the right temporal lobe Foci of restricted diffusion in the posterior right corpus callosum and right frontal lobe with signal deficit on the ADC map, however these areas show enhancement on the postcontrast images which is quite suspicious for recurrent or new tumor Recommend neurology consultation and correlation with clinical findings with the MRI findings above Assumed care of this pleasant 50 y/o male s/p right parietal tumor excision on 10/01/2024, radiation treatment, and failed chemotherapy, currently on PO chemotherapy with evidence of recurring now presenting with current escalating headache. Patient is neurologically intact with discrepancy with brain MRI brain read. Some suggestion of recurrent tumor in the corpus collosum genu and splenium. Patient loaded with Keppra and seizure free throughout ED stay. Discussed with neurosurgeon high-dose steroid, Decadron 10 mg given IV, and BP parameters will be followed. Case further discussed with daughter who indicates similar episode several months [employer] for which patient was observed for a brief period of time and was discharged home. Will contact [facility] neurosurgeon and determine ultimate disposition. Final diagnoses includes recurrent GBM tumor with cerebral edema and hemorrhage. Case further non-surgical candidacy place on outpatient course of Decadron and close F/U with neurosurgical clinic anticipated. 1938: Spoke with Dr. Hillman, neurosurgeon, of [facility]. Reviewed the patient?s HPI, PMHx, lab and/or radiology results. Discussed treatment plan. Will follow recommendations. 2116: Spoke with [facility]. Reviewed the patient?s HPI, PMHx, lab and/or radiology results. Discussed treatment plan. Will call back. 2131: [facility] called back and case further discussed. Due to non-surgical candidacy, patient will be placed on outpatient course of Decadron and close F/U with neurosurgical clinic anticipated.
--- NOTE | 2025-09-01 19:03 | PRELIM_ITS ---
MRI of the brain without and with intravenous gadolinium. September 01, 2025 12:37 hours Clinical history: Severe headache. Comparison: No prior study is available for comparison. Findings: There is diffusion restriction seen at the right lateral aspects of the genu and splenium of the corpus callosum, with blooming on susceptibility images, concerning for acute infarcts with hemorrhagic transformation. These areas are demonstrating mild heterogeneous enhancement on post-contrast study. There are chronic infarcts with encephalomalacia changes with FLAIR hyperintensities in the right basal ganglia, insular cortex, and right temporal lobe. There is a T1 hypointense/T2 hyperintense lesion in the right temporal lobe without diffusion restriction and without enhancement on post-contrast study, which may represent cystic encephalomalacia/porencephaly changes. There are areas of blooming on susceptibility images in the right temporal lobe, likely related to chronic hemosiderin deposition. There are diffuse periventricular white matter T2 and FLAIR hyperintensities, suggestive of chronic small vessel ischemia. The hippocampal complexes are symmetric. There is no evidence of mass or calcifi cation. There is no intracranial hemorrhage or midline shift. The ventricles, basal cisterns, and sulci are slightly prominent, suggestive of volume loss. No abnormal meningeal or parenchymal enhancement is seen. Normal intracranial flow voids are noted. The calvarium, pituitary fossa, and cervicomedullary junction appear unremarkable. There is mild mucosal thickening in the right sphenoid sinus. The remainder of the visualized paranasal sinuses and mastoid air cells are clear. The seventh and eighth nerve root complexes are normal. Impression: 1. Acute infarcts with hemorrhagic transformation at the right lateral aspects of the genu and splenium of the corpus callosum. 2. Chronic infarcts with cystic encephalomalacia changes in the right temporal lobe, right basal ganglia, and insular cortex, as described. 3. Mild volume loss and chronic small vessel ischemic changes. 4. Other findings as described above. Discussion Details: Results Discussed With : Dr. Lopes at 06:57 PM 09/01/2025 Report Electronically Signed By: Osmani Gayle 09/01/2025 7:03:04 PM [EST]
--- NOTE | 2025-09-01 19:18 | PC.NURSE ---
TRANSFER PACKET FAXED TO [facility]
--- NOTE | 2025-09-01 19:47 | PC.NURSE ---
SPOKE WITH SYEDA AT TRANSFER CENTER, CONNECTED DR ADORNO NEURO DR WITH OUR ER MD. VA DR ADORNO PATIENT SHOULD GO BACK TO FACILITY WHERE HE WAS INITIALLY TREATED FOR HIS NEURO ISSUES
[2025-09-01] MEDS: levETIRAcetam INJ 100 MG/ML VIAL 5ML 1000 MG IVP (20:02)
--- NOTE | 2025-09-01 20:09 | PC.NURSE ---
I SPOKE WITH GRAHAM FROM THE [facility] TRANSFER C[facility] AND HE ASKED THAT I FAX OVER THE PT INFO. WE ARE PENDING A CALL BACK AT THIS TIME.
== END 2025-09-01 22:07 | disposition home or self-care (01) ==
PROVIDERS: Emergency Medicine; Emergency Provider Emergency Medicine; PCP Family Medicine
DX: C71.9 Malignant neoplasm of brain, unspecified (principal); G93.6 Cerebral edema; G93.89 Other specified disorders of brain; Z92.21 Personal history of antineoplastic chemotherapy; Z92.3 Personal history of irradiation
CPT/HCPCS: 36415; 70450; 70553; 80053; 82248; 83735; 85025; 85610; 85730; 96361; 96374; 96375; 99285; A9577; J1171; J1885; J1953; J2270; J7030; Q0162; A9270

== ENCOUNTER → 2025-09-03 | Outpatient (CLI) | payer MEDICAID, SELFPAY ==
[2025-09-03 07:56] LABS: Collection Type, Urine Clean Catch
[2025-09-03 08:45] LABS: Basophils # (Auto) 0.1 Thou/mm3 (0.0-0.2); Basophils % (Auto) 2 % (0-2.5); Eosinophils # (Auto) 0.0 Thou/mm3 (0.0-0.5); Eosinophils % (Auto) 0 % (0-10); Hematocrit 43.2 % (41.0-53.0); Hemoglobin 14.3 g/dL (13.5-16.0); Immature Granulocytes Auto 0.39 Thou/mm3 (0.00-0.00); Lymphocytes # (Auto) 1.1 Thou/mm3 (1.0-4.8); Lymphocytes % (Auto) 22 % (10-50); Mean Corpuscular HGB Conc 33.1 g/dl (31.0-37.0); Mean Corpuscular Hemoglobin 31.0 pg (25.0-35.0); Mean Corpuscular Volume 94 fL (80-100); Monocytes # (Auto) 0.5 Thou/mm3 (0.0-0.8); Monocytes % (Auto) 11 % (0-12); Neutrophils # (Auto) 2.9 Thou/mm3 (1.8-7.7); Neutrophils % (Auto) 58 % (37-80); Nucleated Red Blood Cell # 0.02 Thou/mm3 (0.00-0.00); Nucleated Red Blood Cell % 0 /100 WBC (0); Platelet Count 224 Thou/mm3 (140-440); RDW Standard Deviation 51.9 fL (35.1-43.9); Red Blood Count 4.62 Miln/mm3 (4.50-5.90); White Blood Count 5.0 Thou/mm3 (3.8-10.6)
[2025-09-03 08:50] LABS: Bilirubin,Urine Negative (Negative); Blood,Urine Negative (Negative); Clarity,Urine Clear (Clear/Hazy); Color,Urine Lt-Yellow (Lt Yel-Yel); Glucose, Urine Negative (Negative); Ketones,Urine Negative (Negative); Leukocyte Esterase,Urine Negative (Negative); Nitrite,Urine Negative (Negative); PH,Urine 5.5 (5.0-7.0); Protein,Urine Negative (Neg - Trace); RBC,Urine < 1 /hpf (0-3); Specific Gravity,Urine 1.024 (1.001-1.035); Squamous Epithelial Cell,Urine 2 /hpf (0-5); Urobilinogen,Urine Negative mg/dL (0.0-1.0); WBC,Urine < 1 /hpf (0-5)
[2025-09-03 09:01] LABS: Carcinoembryonic Antigen 1.6 ng/mL (0.0-5.0)
[2025-09-03 09:12] LABS: Alanine Aminotransferase 38 U/L (10-49); Albumin, Serum 4.4 gm/dL (3.5-5.0); Albumin/Globulin Ratio 1.9 (1.2-2.2); Alkaline Phosphatase 87 U/L (46-116); Anion Gap 9 (7-16); Aspartate Amino Transferase < 8 U/L (0-34); BUN/Creatinine Ratio 18 Ratio (12-20); Bilirubin,Total 0.5 mg/dL (0.3-1.2); Blood Urea Nitrogen 14 mg/dL (9-23); Calcium 9.4 mg/dL (8.3-10.6); Calcium (Corrected) 9.4 mg/dL (8.5-10.1); Carbon Dioxide 27.5 mMol/L (20.0-31.0); Chloride 108 mMol/L (98-107); Creatinine (Component) 0.8 mg/dL (0.6-1.3); Globulin 2.3 gm/dL (2.3-3.5); Glucose 97 mg/dL (74-106); Osmolality,Calculated 287 (275-295); Potassium 4.1 mMol/L (3.4-5.1); Sodium 144 mMol/L (136-145); Total Protein 6.7 gm/dL (5.7-8.2); eGFR > 60 See Note
== END | disposition home or self-care (01) ==
LOC: SCTO 07:03
PROVIDERS: PCP Internal Medicine; Referring Provider Internal Medicine Hematology & Oncology; Visit Provider Internal Medicine Hematology & Oncology
DX: C71.1 Malignant neoplasm of frontal lobe (principal)
CPT/HCPCS: 36415; 80053; 81001; 82378; 85025

== ENCOUNTER → 2025-09-18 | Outpatient (CLI) | payer MEDICAID, SELFPAY ==
[2025-09-18 08:10] LABS: Collection Type, Urine Clean Catch
[2025-09-18 08:42] LABS: Basophils # (Auto) 0.1 Thou/mm3 (0.0-0.2); Basophils % (Auto) 1 % (0-2.5); Eosinophils # (Auto) 0.0 Thou/mm3 (0.0-0.5); Eosinophils % (Auto) 0 % (0-10); Hematocrit 44.6 % (41.0-53.0); Hemoglobin 15.0 g/dL (13.5-16.0); Immature Granulocytes Auto 0.54 Thou/mm3 (0.00-0.00); Lymphocytes # (Auto) 0.7 Thou/mm3 (1.0-4.8); Lymphocytes % (Auto) 8 % (10-50); Mean Corpuscular HGB Conc 33.6 g/dl (31.0-37.0); Mean Corpuscular Hemoglobin 31.7 pg (25.0-35.0); Mean Corpuscular Volume 94 fL (80-100); Monocytes # (Auto) 0.4 Thou/mm3 (0.0-0.8); Monocytes % (Auto) 4 % (0-12); Neutrophils # (Auto) 7.8 Thou/mm3 (1.8-7.7); Neutrophils % (Auto) 82 % (37-80); Nucleated Red Blood Cell # 0.07 Thou/mm3 (0.00-0.00); Nucleated Red Blood Cell % 1 /100 WBC (0); Platelet Count 214 Thou/mm3 (140-440); RDW Standard Deviation 56.1 fL (35.1-43.9); Red Blood Count 4.73 Miln/mm3 (4.50-5.90); White Blood Count 9.5 Thou/mm3 (3.8-10.6)
[2025-09-18 08:56] LABS: Bilirubin,Urine Negative (Negative); Blood,Urine Negative (Negative); Clarity,Urine Clear (Clear/Hazy); Color,Urine Lt-Yellow (Lt Yel-Yel); Glucose, Urine Negative (Negative); Ketones,Urine Negative (Negative); Leukocyte Esterase,Urine Negative (Negative); Nitrite,Urine Negative (Negative); PH,Urine 6.0 (5.0-7.0); Protein,Urine Trace (Neg - Trace); RBC,Urine 3 /hpf (0-3); Specific Gravity,Urine 1.031 (1.001-1.035); Squamous Epithelial Cell,Urine < 1 /hpf (0-5); Urobilinogen,Urine Negative mg/dL (0.0-1.0); WBC,Urine 6 /hpf (0-5)
[2025-09-18 09:04] LABS: Alanine Aminotransferase 65 U/L (10-49); Albumin, Serum 4.2 gm/dL (3.5-5.0); Albumin/Globulin Ratio 2.0 (1.2-2.2); Anion Gap 12 (7-16); Aspartate Amino Transferase 24 U/L (0-34); BUN/Creatinine Ratio 25 Ratio (12-20); Bilirubin,Total 0.6 mg/dL (0.3-1.2); Blood Urea Nitrogen 20 mg/dL (9-23); Calcium 9.0 mg/dL (8.3-10.6); Calcium (Corrected) 9.0 mg/dL (8.5-10.1); Carbon Dioxide 24.3 mMol/L (20.0-31.0); Chloride 103 mMol/L (98-107); Creatinine (Component) 0.8 mg/dL (0.6-1.3); Globulin 2.1 gm/dL (2.3-3.5); Glucose 125 mg/dL (74-106); Osmolality,Calculated 281 (275-295); Potassium 4.4 mMol/L (3.4-5.1); Sodium 139 mMol/L (136-145); Total Protein 6.3 gm/dL (5.7-8.2); eGFR > 60 See Note
[2025-09-18 09:21] LABS: Alkaline Phosphatase 76 U/L (46-116)
[2025-09-18 12:45] LABS: Carcinoembryonic Antigen 1.8 ng/mL (0.0-5.0)
== END | disposition home or self-care (01) ==
LOC: SCTO 06:46
PROVIDERS: PCP Family Medicine; Referring Provider Internal Medicine Hematology & Oncology; Visit Provider Internal Medicine Hematology & Oncology
DX: C71.1 Malignant neoplasm of frontal lobe (principal)
CPT/HCPCS: 36415; 80053; 81001; 82378; 85025

== ENCOUNTER 2025-09-19 08:00 | Outpatient (RCR) | payer MEDICAID, SELFPAY ==
--- NOTE | 2025-09-05 00:19 | CTCFLWUP_ITS ---
Patient: ELLIOTT CORBIN : 1975 Page 2 of 2 FOLLOW UP NOTE DATE OF SERVICE: 08/28/2025 NAME: ELLIOTT CORBIN ACCOUNT: [id number] : 1975 AGE: 50 INTERVAL HISTORY: Patient had progression of tumor in his GBM. Patient is started on lomustine and bevacizumab. He has tolerated bevacizumab well. Patient was seen by [facility] team and advised to hold onto next dose of lomustine. Patient is scheduled for next imaging in about a week. Patient is complaining of weight gain and requesting to reduce steroids. Image Medications and Supplements - Tramadol - Causing severe constipation - Chemo pills - Steroids - Recommended to stop Review of Systems General: Negative for fever, chills, fatigue, muscle aches, or weight change. Gastrointestinal: Positive for severe constipation and right upper quadrant pain. Objective: Laboratory, Imaging, and Diagnostic Test Results - MRI (date not specified): - Tumor stable since October - Some inflammation noted towards the back ONCOLOGY HISTORY:?[facility] Hx? DIAGNOSIS: Malignant neoplasm of frontal lobe (brain) [ICD10] C71.1 DATE OF DIAGNOSIS: 11/22/2024 STAGE/TNM: 1975 Study of the molecular features that [facility] indicates that this is most consistent with glioblastoma IDH wild-type WHO grade 4. Please see [facility] interpretation section of page 2 of pathology dated 10/01/2024 which is the second document in the mosaic for patient. 11/22/2024 There are postsurgical changes in the right middle cranial fossa from temporal craniotomy. Adjacent to the surgical cavity and more medial, there is fullness of the sulci with high TZ-FLAIR signal and subtle restricted diffusion involving the insular region, medial temporal lobe, and posteroinferior frontal lobe which is unchanged in appearance. In addition, there is subtle signal change involving the right periatrial white matter and hippocampal gyrus with probable extension into the right splenium of the corpus callosum which is also unchanged; however, slightly more conspicuous to the previous examination. There is no associated enhancement. Findings are likely related to non enhancing tumor. TREATMENT HISTORY: Care?Plan Start?Date Cycle Day Intent Bevacizumab?10?mg/kg?-?Met 07/10/2025 1 28 Palliative HISTORY OF PRESENT ILLNESS: 50-year-old male with a new diagnosis of GBM. Patient was diagnosed with GBM. Underwent craniotomy to remove large right frontotemporal mass. Patient was seen at by [facility] and started on concurrent chemoradiation. There was a delay to received Temodar. Patient have completed chemotherapy with radiation. 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 Tobacco?Pack?per?Day:?0 Tobacco?Use:?DENIES ETOH?Use:?DENIES Drug?Note:?DENIES Social History Note:?LIVES WITH , 2 CHILDREN AGES 24 AND 15 MEDICATIONS: 1. acetaminophen - 500 mg 2 tab As directed 2. Ativan - 1 mg 1 tab Daily 3. dexamethasone - 4 mg 1 tab 1 tab twice daily 4. dexamethasone - 4 mg 1 tab As directed 5. dexamethasone - 1 mg 1 tab Daily 6. Gleostine - 100 mg 2 Capsule once 7. Keppra - 750 mg 1 tab every 12 hrs 8. levetiracetam - 500 mg 1.5 tab Twice a Day 9. lomustine - 100 mg 2 Capsule As directed 10. lomustine - 100 mg 110 mg/m*2 213 mg every 42 days 11. memantine - 5 mg 2 tab twice a day 12. ondansetron - 16 mg 1 tab every 8 hrs as needed for nausea 13. ondansetron HCl - 8 mg 1 tab every 8 hours as needed for nausea 14. oxycodone - 5 mg 1 tab 1 tab every 4 hrs as needed for severe pain 15. pregabalin - 25 mg 1 Capsule Three times a day 16. Protonix - 40 mg 1 tab Daily 17. valACYclovir - 1 gram 1 tab Three times a day 18. zolpidem - 10 mg 1 tab Daily?Palabra Meds? Medications Last Reconciled by Remedios Rosario MD on 08/28/2025 ALLERGIES: No Known Allergies REVIEW OF SYSTEMS: A complete 14-point review of systems was performed and is negative except as noted in interval history. PHYSICAL EXAMINATION:?[facility] PE? VITAL SIGNS: Temperature?97.7, B/P?134/82, Oxygen?Saturation?97% Weight?214?lbs (Change?since?08/21/25:?5?lbs) PAIN: 0 - No pain GENERAL APPEARANCE: Appears well, in no apparent distress, appropriately interactive. HEENT: Normocephalic, no temporal wasting, normal conjunctiva, no scleral icterus, normal hearing, lips without lesions, neck normal range of motion. CARDIOVASCULAR: Not assessed. PULMONARY: Normal respiratory effort, no respiratory distress or use of accessory muscles, speaking in full sentences, no tachypnea. EXTREMITIES: No pedal edema or cyanosis. SKIN: Normal skin appearance. NEUROLOGIC: Alert and oriented x4. PSHYCHIATRIC: Appropriate affect, mood normal, behavior normal, intact thought and speech. LABORATORY DATA: I have personally reviewed and interpreted each of the patient?s relevant lab tests, abnormal findings are below: Date 09/01/25 09/03/25 ??WHITE?BLOOD?COUNT?(Thou/mm3) ? 5.0 ??RED?BLOOD?COUNT?(Miln/mm3) ? 4.62 ??HEMOGLOBIN?(gm/dl) ? 14.3 ??HEMATOCRIT?(%) ? 43.2 ??PLATELET?COUNT?(Thou/mm3) ? 224 ??NEUTROPHILS?%,?AUTO?(%) ? 58 ??LYMPH?%,?AUTO?(%) ? 22 ??NEUTROPHILS,?AUTO?(Thou/mm3) ? 2.9 ??GLUCOSE,RANDOM?(mg/dL) 97 97 ??BLOOD?UREA?NITROGEN?(mg/dL) 15 14 ??CREATININE?(mg/dL) 0.80 0.80 ??SODIUM?(mmol/L) 141 144 ??POTASSIUM?(mmol/L) 3.8 4.1 ??CHLORIDE?(mmol/L) 105 108?H ??CrCl?(CandG)?(ml/min) 120.95 120.95 ??AST/SGOT?(Unit/L) 18 <?8 ??ALT/SGPT?(Unit/L) 36 38 ??ALKALINE?PHOSPHATASE?(Unit/L) 81 87 ??BILIRUBIN,?TOTAL?(mg/dL) 0.6 0.5 ??PROTEIN?TOTAL?(gm/dl) 6.5 6.7 ??ALBUMIN,?SERUM?(gm/dl) 4.5 4.4 ??GLOBULIN?(gm/dl) 2.0?L 2.3 ??ALBUMIN/GLOBULIN?RATIO 2.3?H 1.9 ??CALCIUM,?SERUM?(mg/dL) 9.3 9.4 ??CALCIUM?SERUM?(CORRECTED)?(mg/dL) 9.3 9.4 ??CEA?(O*)?(ng/ml) ? 1.6 ASSESSMENT/PLAN:?Mike Patel Assessment/Plan? GBM WHO grade 4 S/p resection S/p chemo RT followed by chemotherapy with the [facility] Reviewed MRI and shows progression on lomustine as per [facility] recommendation-lomustine 90 mg/m? every 6 weeks and bevacizumab 10 mg/kg every 2 weeks Patient received 1 dose of lomustine and has been on bevacizumab Was advised at [facility] to stop lomustine and resume only if have progression MRI is scheduled for him in 1 week I will decrease his steroids as patient is doing well If patient they are worsening headache, advised to go back on the 4 mg of dexamethasone and call clinic RTC after imaging ORDERS: Order # Description [id number] Infusion 1 Hour [id number] Infusion 1 Hour [id number] Comprehensive Metabolic Panel + CBC with Auto Diff + CEA + Urinalysis, Automated with Microscopy [id number] Follow Up Appointment [id number] Infusion 1 Hour [id number] Infusion 1 Hour [id number] Comprehensive Metabolic Panel + CBC with Auto Diff + CEA + Urinalysis, Automated with Microscopy [id number] Follow Up Appointment [id number] Infusion 1 Hour [id number] Infusion 1 Hour [id number] Comprehensive Metabolic Panel + CBC with Auto Diff + CEA + Urinalysis, Automated with Microscopy [id number] Follow Up Appointment [id number] Infusion 1 Hour [id number] Infusion 1 Hour [id number] Comprehensive Metabolic Panel + CBC with Auto Diff + CEA + Urinalysis, Automated with Microscopy [id number] Follow Up Appointment RETURN TO CLINIC: I reviewed the diagnosis, prognosis, and recommended treatment/procedure options with the patient (and/or their legal sales account representative), including the potential benefits, risks, side effects and alternative therapies. We also discussed the option of no treatment and the possibility of clinical trial participation, if applicable. All questions were addressed, and they demonstrated understanding. They provided informed consent to proceed with the proposed plan of care. BILLING AND COMPLIANCE: I reviewed external records from providers outside my specialty as summarized above. I spent a total of 50 minutes on this patient?s care on the day of their visit excluding time spent related to any billed procedures. This time includes time spent with the patient as well as time spent documenting in the medical record, reviewing patients records and tests, obtaining history, placing orders, communicating with other healthcare professionals, counseling the patient, family or caregiver, and/or care coordination for the diagnoses above. Electronically Signed by: Cal Patel MD T: 12:17 AM CC: PCP: Moise Boudreaux Referring: Cal Patel This document was completed utilizing speech recognition software. Grammatical errors, random word insertions, pronoun errors, and incomplete sentences are an occasional consequence of this system due to software limitations, ambient noise, and hardware issues. Any formal questions or concerns about the content, text or information contained within the body of this dictation should be directly addressed to the provider for clarification.
--- NOTE | 2025-09-17 01:12 | CTCFLWUP_ITS ---
Patient: ELLIOTT CORBIN : 1975 Page 12 of 13 FOLLOW UP NOTE DATE OF SERVICE: 09/13/2025 NAME: ELLIOTT CORBIN ACCOUNT: [id number] : 1975 AGE: 50 INTERVAL HISTORY: Summary-patient has completed MRI which showed mild enhancement about 0.5 cm concerning for recurrent disease along with a anterior medial aspect of the resection cavity. Patient also noted to have improvement of areas of enhancement of the right aspect splenium. Degree of edema seems improved. Patricia ent was seen by neurosurgery and advised to continue bevacizumab and lomustine. Patient will get 1 dose of lomustine today and will continue bevacizumab. Advised to blood to blood work before Felicity. Patient's next lomustine will be after the MRI in September. Patient's and patient advised to schedule MRI and see the surgeon and will continue therapy for now. Per neurosurgery patient's cancer overall is stable. Image 09/06/2025 Medications and Supplements - Tramadol - Causing severe constipation - Chemo pills - Steroids - Recommended to stop Review of Systems General: Negative for fever, chills, fatigue, muscle aches, or weight change. Gastrointestinal: Positive for severe constipation and right upper quadrant pain. Objective: Laboratory, Imaging, and Diagnostic Test Results - MRI (date not specified): - Tumor stable since October - Some inflammation noted towards the back ONCOLOGY HISTORY: DIAGNOSIS: Malignant neoplasm of frontal lobe (brain) [ICD10] C71.1 DATE OF DIAGNOSIS: 11/22/2024 STAGE/TNM: 1975 Study of the molecular features that [facility] indicates that this is most consistent with glioblastoma IDH wild-type WHO grade 4. Please see [facility] interpretation section of page 2 of pathology dated 10/01/2024 which is the second document in the mosaic for patient. 11/22/2024 There are postsurgical changes in the right middle cranial fossa from temporal craniotomy. Adjacent to the surgical cavity and more medial, there is fullness of the sulci with high TZ-FLAIR signal and subtle restricted diffusion involving the insular region, medial temporal lobe, and posteroinferior frontal lobe which is unchanged in appearance. In addition, there is subtle signal change involving the right periatrial white matter and hippocampal gyrus with probable extension into the right splenium of the corpus callosum which is also unchanged; however, slightly more conspicuous to the previous examination. There is no associated enhancement. Findings are likely related to non enhancing tumor. TREATMENT HISTORY: Care?Plan Start?Date Cycle Day Intent Bevacizumab?10?mg/kg?-?Met 07/10/202511 21 Palliative HISTORY OF PRESENT ILLNESS: 50-year-old male with a new diagnosis of GBM. Patient was diagnosed with GBM. Underwent craniotomy to remove large right frontotemporal mass. Patient was seen at by [facility] and started on concurrent chemoradiation. There was a delay to received Temodar. Patient have completed chemotherapy with radiation. 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 Tobacco?Pack?per?Day:?0 Tobacco?Use:?DENIES ETOH?Use:?DENIES Drug?Note:?DENIES Social History Note:?LIVES WITH , 2 CHILDREN AGES 24 AND 15 MEDICATIONS: 1. acetaminophen - 500 mg 2 tab As directed 2. Ativan - 1 mg 1 tab Daily 3. dexamethasone - 4 mg 1 tab 1 tab twice daily 4. dexamethasone - 4 mg 1 tab As directed 5. dexamethasone - 1 mg 1 tab Daily 6. Gleostine - 100 mg 2 Capsule once 7. Keppra - 750 mg 1 tab every 12 hrs 8. levetiracetam - 500 mg 1.5 tab Twice a Day 9. lomustine - 100 mg 2 Capsule As directed 10. lomustine - 100 mg 110 mg/m*2 213 mg every 42 days 11. memantine - 5 mg 2 tab twice a day 12. ondansetron - 16 mg 1 tab every 8 hrs as needed for nausea 13. ondansetron HCl - 8 mg 1 tab every 8 hours as needed for nausea 14. oxycodone - 5 mg 1 tab 1 tab every 4 hrs as needed for severe pain 15. pregabalin - 25 mg 1 Capsule Three times a day 16. Protonix - 40 mg 1 tab Daily 17. valACYclovir - 1 gram 1 tab Three times a day 18. zolpidem - 10 mg 1 tab Daily Medications Last Reconciled by Remedios Rosario MD on 09/13/2025 ALLERGIES: No Known Allergies REVIEW OF SYSTEMS: A complete 14-point review of systems was performed and is negative except as noted in interval history. PHYSICAL EXAMINATION: VITAL SIGNS: Temperature?97.4, B/P?164/109, Oxygen?Saturation?93% Weight?216?lbs (Change?since?09/05/25:?1.2?lbs) PAIN: 0 - No pain ECOG Performance Status: None GENERAL APPEARANCE: Appears well, in no apparent distress, appropriately interactive. HEENT: Normocephalic, no temporal wasting, normal conjunctiva, no scleral icterus, normal hearing, lips without lesions, neck normal range of motion. CARDIOVASCULAR: Not assessed. PULMONARY: Normal respiratory effort, no respiratory distress or use of accessory muscles, speaking in full sentences, no tachypnea. EXTREMITIES: No pedal edema or cyanosis. SKIN: Normal skin appearance. NEUROLOGIC: Alert and oriented x4. PSHYCHIATRIC: Appropriate affect, mood normal, behavior normal, intact thought and speech. LABORATORY DATA: I have personally reviewed and interpreted each of the patient?s relevant lab tests, abnormal findings are below: Date 09/01/25 09/03/25 ??WHITE?BLOOD?COUNT?(Thou/mm3) ? 5.0 ??RED?BLOOD?COUNT?(Miln/mm3) ? 4.62 ??HEMOGLOBIN?(gm/dl) ? 14.3 ??HEMATOCRIT?(%) ? 43.2 ??PLATELET?COUNT?(Thou/mm3) ? 224 ??NEUTROPHILS?%,?AUTO?(%) ? 58 ??LYMPH?%,?AUTO?(%) ? 22 ??NEUTROPHILS,?AUTO?(Thou/mm3) ? 2.9 ??GLUCOSE,RANDOM?(mg/dL) 97 97 ??BLOOD?UREA?NITROGEN?(mg/dL) 15 14 ??CREATININE?(mg/dL) 0.80 0.80 ??SODIUM?(mmol/L) 141 144 ??POTASSIUM?(mmol/L) 3.8 4.1 ??CHLORIDE?(mmol/L) 105 108?H ??CrCl?(CandG)?(ml/min) 120.95 120.95 ??AST/SGOT?(Unit/L) 18 <?8 ??ALT/SGPT?(Unit/L) 36 38 ??ALKALINE?PHOSPHATASE?(Unit/L) 81 87 ??BILIRUBIN,?TOTAL?(mg/dL) 0.6 0.5 ??PROTEIN?TOTAL?(gm/dl) 6.5 6.7 ??ALBUMIN,?SERUM?(gm/dl) 4.5 4.4 ??GLOBULIN?(gm/dl) 2.0?L 2.3 ??ALBUMIN/GLOBULIN?RATIO 2.3?H 1.9 ??CALCIUM,?SERUM?(mg/dL) 9.3 9.4 ??CALCIUM?SERUM?(CORRECTED)?(mg/dL) 9.3 9.4 ??CEA?(O*)?(ng/ml) ? 1.6 ASSESSMENT/PLAN: GBM WHO grade 4 S/p resection S/p chemo RT followed by chemotherapy with the Temodar Reviewed MRI and shows progression on lomustine as per [facility] recommendation-lomustine 90 mg/m? every 6 weeks and bevacizumab 10 mg/kg every 2 weeks Will continue treatment as per neurosurgery oncology recommendations Proceed with lomustine and bevacizumab MRI in September Next cycle of lomustine after the MRI ORDERS: Order # Description [id number] Infusion 1 Hour [id number] Comprehensive Metabolic Panel + CBC with Auto Diff + CEA + Urinalysis, Automated with Microscopy [id number] Follow Up Appointment [id number] Infusion 1 Hour [id number] Infusion 1 Hour [id number] Comprehensive Metabolic Panel + CBC with Auto Diff + CEA + Urinalysis, Automated with Microscopy [id number] Follow Up Appointment [id number] Infusion 1 Hour [id number] Infusion 1 Hour [id number] Comprehensive Metabolic Panel + CBC with Auto Diff + CEA + Urinalysis, Automated with Microscopy [id number] Follow Up Appointment [id number] Infusion 1 Hour [id number] Infusion 1 Hour [id number] Comprehensive Metabolic Panel + CBC with Auto Diff + CEA + Urinalysis, Automated with Microscopy [id number] Follow Up Appointment RETURN TO CLINIC: I reviewed the diagnosis, prognosis, and recommended treatment/procedure options with the patient (and/or their legal automobile rental representative), including the potential benefits, risks, side effects and alternative therapies. We also discussed the option of no treatment and the possibility of clinical trial participation, if applicable. All questions were addressed, and they demonstrated understanding. They provided informed consent to proceed with the proposed plan of care. BILLING AND COMPLIANCE: I reviewed external records from providers outside my specialty as summarized above. I spent a total of 50 minutes on this patient?s care on the day of their visit excluding time spent related to any billed procedures. This time includes time spent with the patient as well as time spent documenting in the medical record, reviewing patients records and tests, obtaining history, placing orders, communicating with other healthcare professionals, counseling the patient, family or caregiver, and/or care coordination for the diagnoses above. Electronically Signed by: {Object.Sanct_ID*PnP.NameFL@M}, {Object.Sanct_ID*PnP.Suffix@U} D: {Object.Sanct_Date} T: {Object.Sanct_Time} CC: PCP: Moise Boudreaux Referring: Moise Boudreaux This document was completed utilizing speech recognition software. Grammatical errors, random word insertions, pronoun errors, and incomplete sentences are an occasional consequence of this system due to software limitations, ambient noise, and hardware issues. Any formal questions or concerns about the content, text or information contained within the body of this dictation should be directly addressed to the provider for clarification.
== END 2025-09-23 23:59 | disposition home or self-care (01) ==
LOC: SCTC 08:00
PROVIDERS: PCP Family Medicine; Referring Provider Family Medicine; Visit Provider Internal Medicine Hematology & Oncology
DX: Z51.11 Encounter for antineoplastic chemotherapy (principal); C71.1 Malignant neoplasm of frontal lobe; C71.2 Malignant neoplasm of temporal lobe
CPT/HCPCS: 96413; 99212; J3490; Q5107; G0463

== ENCOUNTER → 2025-10-03 | Outpatient (CLI) | payer MEDICAID, SELFPAY ==
[2025-10-03 08:10] LABS: Collection Type, Urine Clean Catch
[2025-10-03 08:34] LABS: Basophils # (Auto) 0.0 Thou/mm3 (0.0-0.2); Basophils % (Auto) 0 % (0-2.5); Eosinophils # (Auto) 0.0 Thou/mm3 (0.0-0.5); Eosinophils % (Auto) 0 % (0-10); Hematocrit 40.6 % (41.0-53.0); Hemoglobin 13.6 g/dL (13.5-16.0); Immature Granulocytes Auto 0.07 Thou/mm3 (0.00-0.00); Lymphocytes # (Auto) 0.6 Thou/mm3 (1.0-4.8); Lymphocytes % (Auto) 10 % (10-50); Mean Corpuscular HGB Conc 33.5 g/dl (31.0-37.0); Mean Corpuscular Hemoglobin 32.1 pg (25.0-35.0); Mean Corpuscular Volume 96 fL (80-100); Monocytes # (Auto) 0.3 Thou/mm3 (0.0-0.8); Monocytes % (Auto) 5 % (0-12); Neutrophils # (Auto) 4.9 Thou/mm3 (1.8-7.7); Neutrophils % (Auto) 84 % (37-80); Nucleated Red Blood Cell # 0.00 Thou/mm3 (0.00-0.00); Nucleated Red Blood Cell % 0 /100 WBC (0); Platelet Count 113 Thou/mm3 (140-440); RDW Standard Deviation 56.7 fL (35.1-43.9); Red Blood Count 4.24 Miln/mm3 (4.50-5.90); White Blood Count 5.9 Thou/mm3 (3.8-10.6)
[2025-10-03 08:45] LABS: Bacteria,Urine 1+; Bilirubin,Urine Negative (Negative); Blood,Urine Negative (Negative); Clarity,Urine Clear (Clear/Hazy); Color,Urine Yellow (Lt Yel-Yel); Glucose, Urine Negative (Negative); Ketones,Urine Negative (Negative); Leukocyte Esterase,Urine Positive (Negative); Nitrite,Urine Positive (Negative); PH,Urine 5.5 (5.0-7.0); Protein,Urine Negative (Neg - Trace); RBC,Urine 1 /hpf (0-3); Specific Gravity,Urine 1.020 (1.001-1.035); Squamous Epithelial Cell,Urine 1 /hpf (0-5); Urobilinogen,Urine Negative mg/dL (0.0-1.0); WBC,Urine 12 /hpf (0-5)
[2025-10-03 08:52] LABS: Carcinoembryonic Antigen 1.8 ng/mL (0.0-5.0)
[2025-10-03 11:34] LABS: Alanine Aminotransferase 61 U/L (10-49); Albumin, Serum 4.5 gm/dL (3.5-5.0); Albumin/Globulin Ratio 1.7 (1.2-2.2); Alkaline Phosphatase 121 U/L (46-116); Anion Gap 10 (7-16); Aspartate Amino Transferase 19 U/L (0-34); BUN/Creatinine Ratio 19 Ratio (12-20); Bilirubin,Total 0.5 mg/dL (0.3-1.2); Blood Urea Nitrogen 13 mg/dL (9-23); Calcium 9.4 mg/dL (8.3-10.6); Calcium (Corrected) 9.4 mg/dL (8.5-10.1); Carbon Dioxide 25.4 mMol/L (20.0-31.0); Chloride 105 mMol/L (98-107); Creatinine (Component) 0.7 mg/dL (0.6-1.3); Globulin 2.6 gm/dL (2.3-3.5); Glucose 119 mg/dL (74-106); Osmolality,Calculated 280 (275-295); Potassium 3.9 mMol/L (3.4-5.1); Sodium 140 mMol/L (136-145); Total Protein 7.1 gm/dL (5.7-8.2); eGFR > 60 See Note
== END | disposition home or self-care (01) ==
PROVIDERS: PCP Internal Medicine; Referring Provider Internal Medicine Hematology & Oncology; Visit Provider Internal Medicine Hematology & Oncology
DX: C71.1 Malignant neoplasm of frontal lobe (principal)
CPT/HCPCS: 36415; 80053; 81001; 82378; 85025

== ENCOUNTER 2025-10-13 16:54 | Emergency (ER) | payer MEDICAID, SELFPAY ==
[2025-10-13 18:01] VITALS: BP 133/85; PULSE 84; RESP 20; TEMP 36.9; O2SAT 97; BMI 34.7
--- NOTE | 2025-10-13 18:40 | PD.EDRME ---
Rapid Medical Screening Exam RME Arrival date/time: 10/13/25 16:54 This is a case of 50-year-old male who came in in the emergency room with abdominal pain mostly on the right sided history of cancer patient was given multiple dose of dexamethasone which make him gain weight and noted to have a infected scratch vishnu persistence of the symptoms this patient decided to start consult here in the emergency room Chief Complaint: Abdominal Pain Time Seen by Provider: 10/13/25 18:33 Vital signs: Vital Signs Temperature 98.4 F 10/13/25 18:01 Pulse Rate 84 10/13/25 18:01 Respiratory Rate 20 10/13/25 18:01 Blood Pressure 133/85 H 10/13/25 18:01 Pulse Oximetry (%) 97 10/13/25 18:01 Oxygen Delivery Method Room Air 10/13/25 18:01 Exam: Moderate tenderness right-sided abdomen no guarding no rebound no rigidity Clinical Impression: Abdominal pain
--- NOTE | 2025-10-13 19:06 | XR_ITS ---
Examination: CT abdomen and pelvis without contrast. Coronal 3-D reconstructions. Sagittal 2-D reconstructions. Date and time of exam: October 13, 2025, 2121 hours, comparison March 22, 2025 INDICATIONS: Abdominal pain beginning 8 days ago. CTDI: vol (mGy): 10.8 DLP: (mGycm): 767 Technique: Axial images of the abdomen have been obtained, 3 mm slice thickness Intravenous contrast material has not been administered. Low dose protocols were performed. One or more of the following dose reduction techniques were used; automated exposure control, adjustment of the mA and/or KV according to patient size, use of iterative reconstruction technique. Findings: No focal liver or splenic lesions No gallstones No pancreatic or adrenal mass 2 mm lower pole left renal calculus, no hydronephrosis or ureteral calculi Tiny fat-containing umbilical hernia Normal appendix No bowel obstruction No diverticulitis Normal seminal vesicles No prostatomegaly Contracted urinary bladder Fat-containing inguinal hernias Advanced degenerative disc disease L5-S1 Impression: 2 mm lower pole nonobstructing left renal calculus, no hydronephrosis or ureteral calculi Normal appendix No bladder mass or bladder calculi
[2025-10-13 19:18] LABS: Collection Type, Urine Clean Catch
[2025-10-13 19:20] LABS: Basophils # (Auto) 0.1 Thou/mm3 (0.0-0.2); Basophils % (Auto) 1 % (0-2.5); Eosinophils # (Auto) 0.0 Thou/mm3 (0.0-0.5); Eosinophils % (Auto) 0 % (0-10); Hematocrit 41.3 % (41.0-53.0); Hemoglobin 14.1 g/dL (13.5-16.0); Immature Granulocytes Auto 0.83 Thou/mm3 (0.00-0.00); Lymphocytes # (Auto) 0.7 Thou/mm3 (1.0-4.8); Lymphocytes % (Auto) 13 % (10-50); Mean Corpuscular HGB Conc 34.1 g/dl (31.0-37.0); Mean Corpuscular Hemoglobin 32.7 pg (25.0-35.0); Mean Corpuscular Volume 96 fL (80-100); Monocytes # (Auto) 0.6 Thou/mm3 (0.0-0.8); Monocytes % (Auto) 12 % (0-12); Neutrophils # (Auto) 3.1 Thou/mm3 (1.8-7.7); Neutrophils % (Auto) 58 % (37-80); Nucleated Red Blood Cell # 0.18 Thou/mm3 (0.00-0.00); Nucleated Red Blood Cell % 3 /100 WBC (0); Platelet Count 330 Thou/mm3 (140-440); RDW Standard Deviation 56.0 fL (35.1-43.9); Red Blood Count 4.31 Miln/mm3 (4.50-5.90); White Blood Count 5.3 Thou/mm3 (3.8-10.6)
[2025-10-13 19:25] LABS: Amorphous Crystals,Urine Present (Absent); Bacteria,Urine 4+; Bilirubin,Urine Negative (Negative); Blood,Urine Negative (Negative); Clarity,Urine Turbid (Clear/Hazy); Color,Urine Yellow (Lt Yel-Yel); Glucose, Urine Negative (Negative); Ketones,Urine Trace (Negative); Leukocyte Esterase,Urine Positive (Negative); Nitrite,Urine Positive (Negative); PH,Urine 5.5 (5.0-7.0); Protein,Urine Trace (Neg - Trace); RBC,Urine 9 /hpf (0-3); Specific Gravity,Urine 1.031 (1.001-1.035); Squamous Epithelial Cell,Urine 1 /hpf (0-5); Urobilinogen,Urine Negative mg/dL (0.0-1.0); WBC,Urine 15 /hpf (0-5)
[2025-10-13 19:43] LABS: Alanine Aminotransferase 51 U/L (10-49); Albumin, Serum 4.2 gm/dL (3.5-5.0); Albumin/Globulin Ratio 1.4 (1.2-2.2); Alkaline Phosphatase 124 U/L (46-116); Anion Gap 10 (7-16); Aspartate Amino Transferase 19 U/L (0-34); BUN/Creatinine Ratio 16 Ratio (12-20); Bilirubin,Total 0.3 mg/dL (0.3-1.2); Blood Urea Nitrogen 13 mg/dL (9-23); Calcium 9.4 mg/dL (8.3-10.6); Calcium (Corrected) 9.4 mg/dL (8.5-10.1); Carbon Dioxide 25.9 mMol/L (20.0-31.0); Chloride 105 mMol/L (98-107); Creatinine (Component) 0.8 mg/dL (0.6-1.3); Estimated Creatinine Clearance 123.4 mL/min (>60); Globulin 2.9 gm/dL (2.3-3.5); Glucose 119 mg/dL (74-106); Lipase 39 U/L (12-53); Osmolality,Calculated 282 (275-295); Potassium 4.0 mMol/L (3.4-5.1); Sodium 141 mMol/L (136-145); Total Protein 7.1 gm/dL (5.7-8.2); eGFR > 60 See Note
--- NOTE | 2025-10-13 22:20 | EDNOTE_ITS ---
ED Skin Abcess FB-RME/HPI General Chief complaint: Wound/Laceration Stated complaint: Right abdominal pain X 8 days Time Seen by Provider: 10/13/25 18:33 Arrival date/time: 10/13/25 16:54 RME / HPI RME / HPI narrative: 10/13/25 16:54 This is a case of 50-year-old male who came in in the emergency room with abdominal pain mostly on the right sided history of cancer patient was given multiple dose of dexamethasone which make him gain weight and noted to have a infected scratch vishnu persistence of the symptoms this patient decided to start consult here in the emergency room DR. RAMIREZ MAIN ED EVALUATION: 50 y/o male with Hx of GBM tumor on PO chemotherapy and Dexamethasone presents to ED c/o lesion to the RLQ of the abdomen x approximately 1 month. Wound began very small and has grown over time. Denies any abdominal pain. Exam: Moderate tenderness right-sided abdomen no guarding no rebound no rigidity Impression: Abdominal pain Related Data Previous Rx's ?Medication ?Instructions ?Recorded pantoprazole 40 mg tablet,delayed 40 mg PO QDAY #20 ta bs 02/23/25 release (Protonix) hydrocodone 5 mg-acetaminophen 325 1 tab PO Q8H PRN pa in #20 tabs 09/01/25 mg tablet levetiracetam 1,000 mg tablet 1,000 mg PO BID #60 tabs 09/01/25 (Keppra) cephalexin 500 mg capsule 500 mg PO TID 7 days #21 cap s 10/13/25 Allergies Allergy/AdvReac Type Severity Reaction Status Date / Time No Known Allergies Allergy Verified 10/13/25 17:03 Review of Systems Review of Systems Systems Reviewed: All systems reviewed, normal except as documented Past Medical History Past Medical History NEUROLOGIC: Positive Brain Tumor and Seizures CARDIAC: Positive Hypertension OTHER HISTORY: Positive Shingles and Cancer (GBM) Social History SMOKING STATUS: Former smoker ED Exam Narrative Physical exam: Generally patient is alert in no obvious distress, heart regular rate and rhythm, lungs clear to auscultation equal bilaterally, abdomen is obese with a 5 x 4 cm abrasion with a mild amount of discharge to the right lateral lower portion of the abdomen. No fluctuance. Course Quality Measures none Orders Category Date Time Status CT abdomen pelvis wo con Stat Exams 10/13/25 19:06 Completed CBC Stat Lab 10/13/25 19:05 Completed Comprehensive Metabolic Panel Stat Lab 10/13/25 19:05 Completed Lipase Stat Lab 10/13/25 19:05 Completed Urinalysis Stat Lab 10/13/25 19:11 Completed Vital Signs Vital signs: Vital Signs Temperature 98.4 F 10/13/25 18:01 Pulse Rate 84 10/13/25 18:01 Respiratory Rate 20 10/13/25 18:01 Blood Pressure 133/85 H 10/13/25 18:01 Pulse Oximetry (%) 97 10/13/25 18:01 Oxygen Delivery Method Room Air 10/13/25 18:01 Skin / Abscess / Foreign Body MDM Narrative MDM Narrative:: Scribe Attestation: I, Karen Marshall, am scribing for and in the presence of Dr. Ramirez. Provider Notation: Although this document has been carefully reviewed, there may still be some phonetic and other typographical errors. These errors are purely grammatical due to imperfections in the software program and should not be construed in any way to compromise the substance of the patient's medical care during this visit. I interpreted all labs. There was no acute abnormality. CT scan down the abdomen and pelvis ordered prior to my evaluation was unremarkable. Patient has an infected abrasion. Urine appears to be slightly infected but the patient is asymptomatic. Patient will be started on cephalexin to be taken as prescribed. Follow-up with his doctor. Return to ER as needed or if condition worsens. Patient data External records reviewed:: [facility] previous records (Reviewed prior ED records from 09/01/25. Patient was seen for Headache.) Clinical information provided by:: patient and spouse () Social determinants that could affect healthcare access:: none Patient has the following chronic illnesses:: Brain Tumor, Seizures, Hypertension, Chemotherapy How is presenting disease/condition affected by chronic disease/condition?: exacerbated by Evaluation data The following diagnostics were reviewed and interpreted by me:: lab results and radiology exam(s) Lab and/or radiology exams considered but not ordered:: None Interpretation Summary: RADIOLOGY Abdomen/Pelvis CT: Findings: No focal liver or splenic lesions No gallstones No pancreatic or adrenal mass 2 mm lower pole left renal calculus, no hydronephrosis or ureteral calculi Tiny fat-containing umbilical hernia Normal appendix No bowel obstruction No diverticulitis Normal seminal vesicles No prostatomegaly Contracted urinary bladder Fat-containing inguinal hernias Advanced degenerative disc disease L5-S1 Impression: 2 mm lower pole nonobstructing left renal calculus, no hydronephrosis or ureteral calculi Normal appendix No bladder mass or bladder calculi Medications / Prescriptions Medications or Prescriptions considered but not ordered:: None Medication administrations:: See above if any. Consultations Consultation(s) initiated? (list below): No Diagnosis Skin/Abscess Differential Diagnosis: abscess of skin or subcutaneous tissue, viral exanthem, urticaria, herpes zoster, allergic reaction to drug, cellulitis and contact dermatitis Most likely diagnosis given after review of the tests above:: none Admission Indicated Admission indicated?: not indicated Explain why admission is indicated or not indicated:: Patient does not meet admission criteria. Admission Request Was there a request for admission?: No Disposition Plan Disposition Plan: Discharge Discharge Attestation Discharge Attestation: The patient and all family members were given an opportunity to ask questions and understood the discharge instructions. Discharge instructions specifically effects, indications for sooner follow up or return to the emergency department, and the expected course of current diagnosis. Patient condition: Stable Discharge Plan Plan Patient Disposition: HOME (Self Care) Prescriptions/Referrals Prescriptions/Med Rec: New cephalexin 500 mg capsule 500 mg PO TID 7 Days Qty: 21 0RF No Action pantoprazole [Protonix] 40 mg tablet,delayed release (DR/EC) 40 mg PO QDAY Qty: 20 0RF levetiracetam [Keppra] 1,000 mg tablet 1,000 mg PO BID Qty: 60 0RF hydrocodone-acetaminophen 5-325 mg tablet 1 tab PO Q8H MDD 3 tab PRN (Reason: pain) Qty: 20 0RF Referrals: Margarita Jean OD [Primary Care Provider] - In 1 week Problem List Clinical Impression: Infected abrasion Patient/Caregiver Discharge Instructions Print Language: Icelandic Stand Alone Forms: [employer] Info., Patient Portal Info Letter
--- NOTE | 2025-10-13 22:35 | EDNOTE_ITS ---
ED General RME/HPI General Chief complaint: Wound/Laceration Stated complaint: Right abdominal pain X 8 days Time Seen by Provider: 10/13/25 18:33 Arrival date/time: 10/13/25 16:54 50-year-old male patient with significant history of brain cancer, Currently taking Keppra, came in for evaluation regarding abrasion to the right lower abdominal area, is been ongoing for the last 8 days. Patient also complained of dysuria. No fever no vomiting no other complaints noted. No medication was taken prior to ER visit RME / HPI RME / HPI narrative: 10/13/25 16:54 This is a case of 50-year-old male who came in in the emergency room with abd ominal pain mostly on the right sided history of cancer patient was given multiple dose of dexamethasone which make him gain weight and noted to have a infected scratch vishnu persistence of the symptoms this patient decided to start consult here in the emergency room DR. RAMIREZ MAIN ED EVALUATION: 50 y/o male with Hx of GBM tumor on PO chemotherapy and Dexamethasone presents to ED c/o lesion to the RLQ of the abdomen x approximately 1 month. Wound began very small and has grown over time. Denies any abdominal pain. Exam: Moderate tenderness right-sided abdomen no guarding no rebound no rigidity Impression: Abdominal pain Related Data Previous Rx's ?Medication ?Instructions ?Recorded pantoprazole 40 mg tablet,delayed 40 mg PO QDAY #20 ta bs 02/23/25 release (Protonix) hydrocodone 5 mg-acetaminophen 325 1 tab PO Q8H PRN pa in #20 tabs 09/01/25 mg tablet levetiracetam 1,000 mg tablet 1,000 mg PO BID #60 tabs 09/01/25 (Keppra) bacitracin 500 unit/gram topical 1 applic topical BID #28 grams 10/13/25 ointment cefuroxime axetil 500 mg tablet 500 mg PO BID #14 tabs 10/13/25 cephalexin 500 mg capsule 500 mg PO TID 7 days #21 cap s 10/13/25 Allergies Allergy/AdvReac Type Severity Reaction Status Date / Time No Known Allergies Allergy Verified 10/13/25 17:03 Review of Systems Review of Systems Narrative Review of Systems: Review of system reviewed and within normal limits except mentioned in HPI ED Exam Narrative Physical exam: VITAL SIGNS: Reviewed. GENERAL APPEARANCE: Alert and interactive, follows commands, no acute distress, HEAD AND FACE: Non-traumatic. ENT: PERRL, pink conjunctivitis, eyelid no trauma, Mucous membrane moist. NECK: Supple, nontender, no nuchal rigidity. CHEST: No tenderness, no crepitus, no paradoxical movement, no retractions. LUNGS: Clear, well ventilated, symmetric, no rales, no wheezing, no ronchi, no stridor, good breath sounds bilaterally. HEART: Regular rate, regular rhythm, no murmur, no gallops. ABDOMEN: Soft, positive bowel sounds, nondistended, no guarding, abrasion noted to the right lower abdominal area, with mild tenderness no drainage noted, no rebound, no masses, RECTAL: Deferred. GENITAL: Deferred. NEUROLOGICAL: Gross motor function intact sensory function intact, Appropriate for age. MUSCULOSKELETAL: low back nontender, full range of motion. EXTREMITIES: Nontender, full range of motion. SKIN: Color pink, dry, no rash, no lacerations, no abrasions, no contusions. LYMPHATICS: Deferred. Course Quality Measures none Orders Category Date Time Status CT abdomen pelvis wo con Stat Exams 10/13/25 19:06 Completed CBC Stat Lab 10/13/25 19:05 Completed Comprehensive Metabolic Panel Stat Lab 10/13/25 19:05 Completed Lipase Stat Lab 10/13/25 19:05 Completed Urinalysis Stat Lab 10/13/25 19:11 Completed cefTRIAXone [Rocephin] 1,000 mg Med 10/13/25 22:35 Ordered Lidocaine 1% Pf Vial 5ml [Xylocaine 1% Pf 5 ml] 2.1 ml IM X1 Vital Signs Vital signs: Vital Signs Temperature 98.4 F 10/13/25 18:01 Pulse Rate 84 10/13/25 18:01 Respiratory Rate 20 10/13/25 18:01 Blood Pressure 133/85 H 10/13/25 18:01 Pulse Oximetry (%) 97 10/13/25 18:01 Oxygen Delivery Method Room Air 10/13/25 18:01 Discharge Plan Plan Patient Disposition: HOME (Self Care) Prescriptions/Referrals Prescriptions/Med Rec: New cephalexin 500 mg capsule 500 mg PO TID 7 Days Qty: 21 0RF cefuroxime axetil 500 mg tablet 500 mg PO BID Qty: 14 0RF bacitracin 500 unit/gram ointment 1 applic topical BID Qty: 28 0RF No Action pantoprazole [Protonix] 40 mg tablet,delayed release (DR/EC) 40 mg PO QDAY Qty: 20 0RF levetiracetam [Keppra] 1,000 mg tablet 1,000 mg PO BID Qty: 60 0RF hydrocodone-acetaminophen 5-325 mg tablet 1 tab PO Q8H MDD 3 tab PRN (Reason: pain) Qty: 20 0RF Referrals: Margarita Jean OD [Primary Care Provider] - In 1 week Problem List Clinical Impression: Infected abrasion, Abdominal wall abrasion Patient/Caregiver Discharge Instructions Discharge Activity: activity as tolerated Education Materials: ED Abrasions Additional Instructions: Thank you for the opportunity for serving you today. You are stable for discharged . You are advised to: Follow-up with your PCP in 1 to 2 days Return to ED for worsening of symptoms Increase oral fluids Take medication as prescribed Print Language: Mongolian Stand Alone Forms: [employer] for [employer] Info., Patient Portal Info Letter MDM Narrative MDM hospital course (for use when minimal MDM required): 50-year-old male patient with significant history of brain cancer, Currently taking Keppra, came in for evaluation regarding abrasion to the right lower abdominal area, is been ongoing for the last 8 days. Patient also complained of dysuria. No fever no vomiting no other complaints noted. No medication was taken prior to ER visit Laboratory workup is significant for urinary tract infection. Glucose of 119 CT scan of the abdomen pelvis showed 2 mm lower pole nonobstructing left renal calculus, no hydronephrosis or ureteral calculi Normal appendix No bladder mass or bladder calculi Results discussed with the patient and family. Patient received ceftriaxone IM Clinical Information Provided by: spouse Medical Records reviewed None Imaging Imaging Interpretation(s): See above Medication Administration(s) Medication Administration History Ceftriaxone Sodium 1,000 mg/ (Lidocaine HCl 2.1 ml) 0 mg IM X1 ONE Stop: 10/13/25 22:36 Diagnosis Differential Diagnosis ED Complaint MDM: Abdominal wall abrasions, abdominal wall wound, UTI Diagnoses ruled out and/or further discussions: Abdominal wall abrasion, UTI
== END 2025-10-14 00:11 | disposition home or self-care (01) ==
PROVIDERS: Nurse Practitioner Family; Emergency Provider Emergency Medicine; PCP Optometrist
DX: S30.811A Abrasion of abdominal wall, initial encounter (principal); L08.9 Local infection of the skin and subcutaneous tissue, unspecified; N20.0 Calculus of kidney; X58.XXXA Exposure to other specified factors, initial encounter
CPT/HCPCS: 36415; 74176; 80053; 81001; 83690; 85025; 96372; 99283; J0696; J3490

== ENCOUNTER → 2025-10-22 | Outpatient (CLI) | payer MEDICAID, SELFPAY ==
[2025-10-22 08:07] LABS: Collection Type, Urine Catheter
[2025-10-22 08:41] LABS: Basophils # (Auto) 0.1 Thou/mm3 (0.0-0.2); Basophils % (Auto) 1 % (0-2.5); Eosinophils # (Auto) 0.0 Thou/mm3 (0.0-0.5); Eosinophils % (Auto) 0 % (0-10); Hematocrit 43.0 % (41.0-53.0); Hemoglobin 14.2 g/dL (13.5-16.0); Immature Granulocytes Auto 0.67 Thou/mm3 (0.00-0.00); Lymphocytes # (Auto) 0.8 Thou/mm3 (1.0-4.8); Lymphocytes % (Auto) 8 % (10-50); Mean Corpuscular HGB Conc 33.0 g/dl (31.0-37.0); Mean Corpuscular Hemoglobin 32.8 pg (25.0-35.0); Mean Corpuscular Volume 99 fL (80-100); Monocytes # (Auto) 0.7 Thou/mm3 (0.0-0.8); Monocytes % (Auto) 7 % (0-12); Neutrophils # (Auto) 7.4 Thou/mm3 (1.8-7.7); Neutrophils % (Auto) 77 % (37-80); Nucleated Red Blood Cell # 0.09 Thou/mm3 (0.00-0.00); Nucleated Red Blood Cell % 1 /100 WBC (0); Platelet Count 209 Thou/mm3 (140-440); RDW Standard Deviation 57.2 fL (35.1-43.9); Red Blood Count 4.33 Miln/mm3 (4.50-5.90); White Blood Count 9.7 Thou/mm3 (3.8-10.6)
[2025-10-22 08:50] LABS: Alanine Aminotransferase 42 U/L (10-49); Albumin, Serum 4.4 gm/dL (3.5-5.0); Albumin/Globulin Ratio 1.7 (1.2-2.2); Alkaline Phosphatase 94 U/L (46-116); Anion Gap 12 (7-16); Aspartate Amino Transferase 17 U/L (0-34); BUN/Creatinine Ratio 11 Ratio (12-20); Bilirubin,Total 0.5 mg/dL (0.3-1.2); Blood Urea Nitrogen 9 mg/dL (9-23); Calcium 9.3 mg/dL (8.3-10.6); Calcium (Corrected) 9.3 mg/dL (8.5-10.1); Carbon Dioxide 25.8 mMol/L (20.0-31.0); Chloride 106 mMol/L (98-107); Creatinine (Component) 0.8 mg/dL (0.6-1.3); Globulin 2.6 gm/dL (2.3-3.5); Glucose 105 mg/dL (74-106); Osmolality,Calculated 285 (275-295); Potassium 3.8 mMol/L (3.4-5.1); Sodium 144 mMol/L (136-145); Total Protein 7.0 gm/dL (5.7-8.2); eGFR > 60 See Note
[2025-10-22 08:54] LABS: Carcinoembryonic Antigen 1.6 ng/mL (0.0-5.0)
[2025-10-22 09:30] LABS: Bilirubin,Urine Negative (Negative); Blood,Urine Negative (Negative); Clarity,Urine Clear (Clear/Hazy); Color,Urine Lt-Yellow (Lt Yel-Yel); Glucose, Urine Negative (Negative); Ketones,Urine Negative (Negative); Leukocyte Esterase,Urine Positive (Negative); Nitrite,Urine Negative (Negative); PH,Urine 5.5 (5.0-7.0); Protein,Urine Negative (Neg - Trace); RBC,Urine 2 /hpf (0-3); Specific Gravity,Urine 1.015 (1.001-1.035); Squamous Epithelial Cell,Urine 1 /hpf (0-5); Urobilinogen,Urine Negative mg/dL (0.0-1.0); WBC,Urine 7 /hpf (0-5)
== END | disposition home or self-care (01) ==
LOC: SCTO 06:41
PROVIDERS: PCP Optometrist; Referring Provider Internal Medicine Hematology & Oncology; Visit Provider Internal Medicine Hematology & Oncology
DX: C71.1 Malignant neoplasm of frontal lobe (principal)
CPT/HCPCS: 36415; 80053; 81001; 82378; 85025

== ENCOUNTER 2025-10-23 10:23 | Outpatient (RCR) | payer MEDICAID, SELFPAY | END 2025-10-24 23:59 | disposition home or self-care (01) | LOC: SCTC 10:23 | PROVIDERS: PCP Internal Medicine; Referring Provider Internal Medicine; Visit Provider Internal Medicine Hematology & Oncology | DX: Z51.11 Encounter for antineoplastic chemotherapy (principal); C71.1 Malignant neoplasm of frontal lobe; C71.2 Malignant neoplasm of temporal lobe | CPT/HCPCS: 96413; J3490; Q5107 ==